=== PATIENT | male | born 1940 | race Caucasian/White ===

== ENCOUNTER 2016-09-21 18:32 | Inpatient (IN) ==
[2016-09-21 19:42] LABS: Basophils # 0.1 10*3/uL (0.0-0.2); Basophils % 0.9 % (0.0-0.8); Eosinophils # 0.5 10*3/uL (0.0-0.87); Eosinophils % 6.5 % (0.00-10.9); Hematocrit 26.4 VOL% (42.0-52.0); Hemoglobin 8.4 GM/DL (14.0-18.0); Immature Granulocytes % 2.6 %; Lymphocytes # 1.4 10*3/uL (1.4-4.0); Lymphocytes % 18.4 % (21.2-54.2); Mean Corpuscular HGB Conc 31.8 GM/DL (32-36); Mean Corpuscular Hemoglobin 30 PG (27-34); Mean Platelet Volume 11.6 FL (9.6-12.0); Monocytes # 0.7 10*3/uL (0.11-0.8); Monocytes % 8.6 % (1.7-12.7); Neutrophils # 4.9 10*3/uL (1.4-7.4); Platelet Count 189 T/CUMM (130-400); Red Blood Count 2.81 MC/CUMM (3.8-5.5); Red Cell Distribution Width 14.2 % (9.3-17.3); White Blood Count 7.8 T/CUMM (4-12)
[2016-09-21 19:53] LABS: PT Patient Result 138.1 SECS; Partial Thromboplastin Time 80.9 SECS (0-40)
[2016-09-21 19:55] LABS: INR 11.2
[2016-09-21 20:14] LABS: Calcium 8.1 MG/DL (8.5-10.1); Osmolality,Calculated 294.4 MOS/KG (273-304)
[2016-09-21] MEDS ORDERED: PHYTONADIONE 5 MG TABLET PO ONE (20:42)
[2016-09-21] MEDS ORDERED: PHYTONADIONE 10 MG/1 ML AMP SUBCUT STA (20:58)
--- NOTE | 2016-09-21 21:11 | Emergency Department Note ---
I, Andressa Ag, am scribing for, and in the presence of, Nubia Horne DO 20:06. I, Nubia Horne DO, personally performed the services described in this documentation, ascribed by Andressa Ag in my presence, and it is both accurate and complete . Arrival - Arrival Chief Complaint: Non-Specific Stated Complaint: COMING FROM [place] [facility]/BLOOD IS THIN ED Nursing Triage Note: pt to triage via wc with c/o having bleeding from gums. pt states he was seen at [place] [facility] today and then they were called back today around 1730 and was told to come to ER to get checked out. they did draw blood work today for labs but did not tell the pt what his levels were, just to go to ER. Mode of Arrival: Wheelchair Limitations: No Limitations Source: Patient, Guardian Time Seen by Provider: 09/21/16 19:36 - History of Present Illness HPI Narrative: Pt is a 76 y/o white male arriving to ED with c/o bleeding from his gums that onset today. Pt reports that he had dental work done today and began bleeding after his visit there. He states that he has not been able to control the bleeding since then. Pt's patient care coordinator states that she was worried before he went to get his dental work done so she called pt's dentist to inform them that he is currently taking Coumadin and they informed her that everything should be normal. Pt has been taking Coumadin 5mg for 3 weeks now. He was also seen at the [place] clinic today to get blood work done. The patient care coordinator rpeorts that they called her from the [place] and told her that pt had an elevated H&H and advised her to bring pt to ED. Pt also c/o a cough but denies any vomiting. He reports no other complaints to ED. Onset (ago): hour(s) Consistency: constant Severity: mild Allergies/Adverse Reactions: Allergies Allergy/AdvReac Type Severity Reaction Status Date / Time levofloxacin [From Levaquin] Allergy Mild RASH Verified 09/21/16 18:50 Home Medications: Home Medications Medication Instructions Recorded Confirmed Type Gabapentin Cap/Tab [Neurontin 300 mg PO TID 02/18/15 09/21/16 History Cap/Tab] Levothyroxine Tab [Synthroid Tab] 100 mcg PO DAILY 02/18/15 09/21/16 History Sucralfate Tab [Carafate Tab] 1 gm PO TID W/MEALS tablet 03/26/15 09/21/16 Rx Omeprazole [Prilosec] 20 mg PO DAILY #30 capsule 11/10/15 09/21/16 Rx Atorvastatin [Lipitor] 10 mg PO BEDTIME 11/12/15 09/21/16 History Escitalopram [Lexapro] 20 mg PO DAILY 11/12/15 09/21/16 History Ferrous Sulfate 325 mg PO BID 11/12/15 09/21/16 History Furosemide Tab [Lasix Tab] 20 mg PO DAILY 11/12/15 09/21/16 History Magnesium Chloride [Slow Mag] 64 mg PO BID 11/12/15 09/21/16 History Tamsulosin [Flomax] 0.4 mg PO DAILY 11/12/15 09/21/16 History Aspirin EC Tab 81 mg PO DAILY tablet 03/26/16 09/21/16 Rx amLODIPine [Norvasc] 5 mg PO DAILY tablet 03/26/16 09/21/16 Rx Insulin Aspart Prot/Insuln Asp 30 unit SUBCUT DAILY 09/21/16 09/21/16 History [NovoLOG Mix 70-30 FlexPen] Warfarin [Coumadin] 5 mg PO DAILY 09/21/16 09/21/16 History hydrALAZINE TAB [Apresoline Tab] 25 mg PO DAILY 09/21/16 09/21/16 History traMADol TAB [Ultram] 50 mg PO DAILY PRN 09/21/16 09/21/16 History Review of System - Review of System 12 point system: reviewed and no additional remarkable complaints except as stated - Review of System Constitutional: Absent: chills, diaphoresis, fever Head/Ears/Nose/Throat: Present: other (gums bleeding). Absent: earache, nasal drainage, sore throat Respiratory: Present: cough Gastrointestinal: Absent: abdominal pain, nausea, vomiting, diarrhea Medical,Surgical,& Family Hx - Medical History Cardio: History of: Cardiac Dysrhythmia (A. 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) Psychological: History of: Anxiety Disorders, Depression Neurology: History of: Cerebrovascular Accident (2015), Neurological Problems No history of: Seizures HEENT: History of: Ear Problem (Hearing Aides), Eye Problem (Glasses/Cataracts) , Dental Problems (ALL CAPS), HEENT Problems (Hard of hearing) No history of: Glaucoma, Oral Cancer Endocrine: History of: Diabetes Mellitus (IDDM), Diabetes Mellitus (NIDDM), Dyslipidemia, Thyroid Disorder (HYPOTHYROID) Respiratory: History of: Bronchitis, COPD No history of: Pneumonia (Current on Pneum Vac), Respiratory Problems (Flu Vac Current 8314-1252 Season) Genitourinary: History of: Prostate Problems (BPH) Gastrointestinal: History of: GERD No history of: Polyps Musculoskeletal: History of: Amputation (Right Great Toe), Back/Neck Problems ( Neck pain), Musculoskeletal Problems (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 Whitmore;11/04/15 Sched for Rt Eye (cataract)) Patient denies: Thyroid Surgery, Tonsilectomy & Adenoidectomy Abdominal Surgeries: Surgical HX of: Colonoscopy Reproductive Surgeries: Patient denies;: Breast Surgery, Cystoscopy, Genitourinary Surgery, Prostate Surgery, Vasectomy Orthopedic Surgeries: Surgical HX of;: Orthopedic Surgery (Right arm surgery; Left shoulder surgery) Patient denies;: Implanted Devices, Total Hip Replacement, Total Knee Replacement - Family History Family History: Reports;: Family Heart Disease (Mother), Family Hypertension ( Mother & Father), Family Stroke (Mother) Denies;: Family Diabetes - Social History Smoking Status: Former smoker Frequency of Alcohol Use: None Type of Drug Use: None Exam Vital Signs: Vital Signs Temperature 97.4 F L 09/21/16 18:46 Pulse Rate 60 09/21/16 18:46 Respiratory Rate 09/21/16 18:46 Blood Pressure 138/73 09/21/16 18:46 O2 Sat by Pulse Oximetry 96 09/21/16 18:46 - General General appearance: alert, in no apparent distress - Head Head exam: Present: atraumatic, normocephalic, normal inspection - Eye Eye exam: Present: normal appearance, PERRL, EOMI - ENT ENT exam: Present: normal exam, normal oropharynx, mucous membranes moist, TM's normal bilaterally, normal external ear exam, other (no source of bleeding but thin blood layer present on teeth) - Neck Neck exam: Present: normal inspection, full ROM, trachea midline. Absent: tenderness - Chest Chest inspection: Present: normal inspection, symmetric chest wall rise, other ( visible pacemaker placed). Absent: tenderness - Respiratory Respiratory exam: Present: other (distant lung sounds) - Cardiovascular Cardiovascular exam: Present: regular rate, normal rhythm, normal heart sounds - Abdominal Exam Abdominal exam: Present: soft, normal bowel sounds. Absent: distention, tenderness, guarding, rebound - Extremities Exam Extremities exam: Present: normal inspection, full ROM, normal capillary refill , other (bilat pitting edema to LE). Absent: tenderness - Back Exam Back exam: Present: normal inspection, full ROM. Absent: tenderness - Neurological Exam Neurological exam: Present: alert, oriented X3, CN II-XII intact, normal gait, reflexes normal - Psychiatric Psychiatric exam: Present: normal affect, normal mood - Skin Skin exam: Present: warm, dry, intact, normal color Course Course Narrative: pt is having large amount of gum bleeding on coumadin. INR is 11 and hg 8.4. Will give vit K. Will admit patient for further workup. Pending rectal occult blood results (given normally have melena for iron supplementation). Results - Labs CBC & BMP: 09/21/16 19:40 09/21/16 19:40 Disposition Clinical Impression: Supratherapeutic INR, Bleeding Case discussed with: patient Disposition: Still a Patient Condition: Stable
[2016-09-21] MEDS ORDERED: PHYTONADIONE 10 MG/1 ML AMP ONE (21:23)
[2016-09-21] MEDS ORDERED: traMADol 50 MG TABLET PO PRN (21:24)
[2016-09-21] MEDS ORDERED: ACETAMINOPHEN 325 MG TABLET PO PRN (21:25)
[2016-09-21] MEDS ORDERED: ONDANSETRON 4 MG/2 ML VIAL IV PRN (21:25)
[2016-09-21] MEDS ORDERED: GLUCAGON 1 MG VIAL IM PRN (21:25)
[2016-09-21] MEDS ORDERED: DEXTROSE 50% 25 GM/50 ML VIAL IV PRN (21:25)
--- NOTE | 2016-09-21 21:29 | Hospitalist History & Physical ---
Assessment and Plan (1) Surgical wound hemorrhage after dental procedure Status: Acute Current Visit: Yes (2) Acute blood loss anemia Status: Acute Current Visit: Yes (3) Supratherapeutic INR Status: Acute Current Visit: Yes (4) Paroxysmal a-fib Status: Acute Current Visit: Yes (5) Chronic systolic CHF (congestive heart failure) Status: Acute Current Visit: Yes (6) History of pacemaker Status: Acute Current Visit: Yes (7) Chronic kidney disease, stage 3 Status: Acute Current Visit: Yes (8) Essential hypertension Status: Acute Assessment and plan: Plan: Vitamin K given in the emergency room Watch for evidence of persistent bleeding, follow H&H Hold aspirin, Coumadin, repeat INR in a.m. We will transfuse FFP due to persistent oozing and drop in hematocrit Current Visit: Yes History of Present Illness Chief complaint: Intractable mouth bleeding after dental procedure, supratherapeutic INR History of present illness: Mr. Storm is a 76 year old male with paroxysmal Afib, pacemaker, chronic anticoagulation, chronic systolic CHF, IDDM, CKD-III. He was told to come to the emergency room after he had a dental procedure this AM with subsequent bleeding from the mouth that has been intractable. INR was noted to be 11.2 in the emergency room. he was switched from Eliquis to Coumadin some time ago, unclear why. His care is largely at the [place]. On his way out of the dental office he had blood coming out of his mouth and since this afternoon he has been unable to stop it. He also reports bruising more easily over the last day or 2. He denies hematuria or hematochezia. He denies chest pain, shortness of breath, nausea vomiting or diarrhea. Home Medications Medication Instructions Recorded Confirmed Type Gabapentin Cap/Tab [Neurontin 300 mg PO TID 02/18/15 09/21/16 History Cap/Tab] Levothyroxine Tab [Synthroid Tab] 100 mcg PO DAILY 02/18/15 09/21/16 History Sucralfate Tab [Carafate Tab] 1 gm PO TID W/MEALS tablet 03/26/15 09/21/16 Rx Omeprazole [Prilosec] 20 mg PO DAILY #30 capsule 11/10/15 09/21/16 Rx Atorvastatin [Lipitor] 10 mg PO BEDTIME 11/12/15 09/21/16 History Escitalopram [Lexapro] 20 mg PO DAILY 11/12/15 09/21/16 History Ferrous Sulfate 325 mg PO BID 11/12/15 09/21/16 History Furosemide Tab [Lasix Tab] 20 mg PO DAILY 11/12/15 09/21/16 History Magnesium Chloride [Slow Mag] 64 mg PO BID 11/12/15 09/21/16 History Tamsulosin [Flomax] 0.4 mg PO DAILY 11/12/15 09/21/16 History Aspirin EC Tab 81 mg PO DAILY tablet 03/26/16 09/21/16 Rx amLODIPine [Norvasc] 5 mg PO DAILY tablet 03/26/16 09/21/16 Rx Insulin Aspart Prot/Insuln Asp 30 unit SUBCUT DAILY 09/21/16 09/21/16 History [NovoLOG Mix 70-30 FlexPen] Warfarin [Coumadin] 5 mg PO DAILY 09/21/16 09/21/16 History hydrALAZINE TAB [Apresoline Tab] 25 mg PO DAILY 09/21/16 09/21/16 History traMADol TAB [Ultram] 50 mg PO DAILY PRN 09/21/16 09/21/16 History Allergies Allergy/AdvReac Type Severity Reaction Status Date / Time levofloxacin [From Levaquin] Allergy Mild RASH Verified 09/21/16 18:50 Medical,Surgical,& Family Hx - Medical History Cardio: History of: Cardiac Dysrhythmia (A. 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) Psychological: History of: Anxiety Disorders, Depression Neurology: History of: Cerebrovascular Accident (2015), Neurological Problems No history of: Seizures HEENT: History of: Ear Problem (Hearing Aides), Eye Problem (Glasses/Cataracts) , Dental Problems (ALL CAPS), HEENT Problems (Hard of hearing) No history of: Glaucoma, Oral Cancer Endocrine: History of: Diabetes Mellitus (IDDM), Diabetes Mellitus (NIDDM), Dyslipidemia, Thyroid Disorder (HYPOTHYROID) Respiratory: History of: Bronchitis, COPD No history of: Pneumonia (Current on Pneum Vac), Respiratory Problems (Flu Vac Current 4728-8606 Season) Genitourinary: History of: Prostate Problems (BPH) Gastrointestinal: History of: GERD No history of: Polyps Musculoskeletal: History of: Amputation (Right Great Toe), Back/Neck Problems ( Neck pain), Musculoskeletal Problems (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 Whitmore;11/04/15 Sched for Rt Eye (cataract)) Patient denies: Thyroid Surgery, Tonsilectomy & Adenoidectomy Abdominal Surgeries: Surgical HX of: Colonoscopy Reproductive Surgeries: Patient denies;: Breast Surgery, Cystoscopy, Genitourinary Surgery, Prostate Surgery, Vasectomy Orthopedic Surgeries: Surgical HX of;: Orthopedic Surgery (Right arm surgery; Left shoulder surgery) Patient denies;: Implanted Devices, Total Hip Replacement, Total Knee Replacement - Family History Family History: Reports;: Family Heart Disease (Mother), Family Hypertension ( Mother & Father), Family Stroke (Mother) Denies;: Family Diabetes - Social History Smoking Status: Former smoker Have you smoked in the last 12 months: No Frequency of Alcohol Use: None Type of Drug Use: None Marital Status: Unknown 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 Functional capacity: uses cane/walker Review of systems: A 12 point review of systems is negative except as specified in the HPI Exam - Constitutional Vitals: Period Temp Pulse Resp BP Sys/Hackett Pulse Ox Last 24 Hr 97.4 F 60 17 138/73 96 Exam: EXAM: CONSTITUTIONAL: non toxic, NAD HEENT: NC, AT, OP with evidence of bright red blood in the oral cavity, mild oozing from sites of dental work, DOC, EOMI CV: RRR no m/g/r RESP: clear B/L, no w/r/r GI: abd soft, NT, ND, +bowel sounds INTEGUMENTARY: no lesions or rash EXTREMITIES: 2+ pitting edema bilateral lower extremities NEURO: no focal deficits PSYCH: unremarkable, A/O x3 Results - Labs CBC & BMP: 09/21/16 19:40 09/21/16 19:40 Lab Results: I have reviewed the past 24 hour labs Quality Measures - VTE Contraindication to Pharmacological VTE Prophylaxis: Active Bleeding
[2016-09-22] MEDS ORDERED: SODIUM CHLORIDE 0.9% 250 ML IV PRN (00:21)
[2016-09-22 00:50] LABS: Basophils # 0.1 10*3/uL (0.0-0.2); Basophils % 0.9 % (0.0-0.8); Eosinophils # 0.5 10*3/uL (0.0-0.87); Eosinophils % 6.9 % (0.00-10.9); Hematocrit 25.9 VOL% (42.0-52.0); Hemoglobin 8.5 GM/DL (14.0-18.0); Immature Granulocytes % 2.8 %; Immature Granulocytes Absolute 0.22 #; Lymphocytes # 1.6 10*3/uL (1.4-4.0); Lymphocytes % 20.7 % (21.2-54.2); Mean Corpuscular HGB Conc 32.8 GM/DL (32-36); Mean Corpuscular Hemoglobin 30 PG (27-34); Mean Corpuscular Volume 91.5 FL (87-102); Mean Platelet Volume 11.3 FL (9.6-12.0); Monocytes # 0.7 10*3/uL (0.11-0.8); Monocytes % 9.1 % (1.7-12.7); Neutrophils # 4.6 10*3/uL (1.4-7.4); Neutrophils % 59.6 % (38.7-73.9); Platelet Count 187 T/CUMM (130-400); Red Blood Count 2.83 MC/CUMM (3.8-5.5); Red Cell Distribution Width 14.3 % (9.3-17.3); White Blood Count 7.8 T/CUMM (4-12)
[2016-09-22 01:12] LABS: PT Patient Result 134.2 SECS
[2016-09-22 01:14] LABS: INR 10.9
[2016-09-22 01:22] LABS: Osmolality,Calculated 294.5 MOS/KG (273-304); Potassium 4.9 MMOL/L (3.5-5.1)
[2016-09-22 08:28] LABS: INR 3.8
[2016-09-22 08:54] LABS: PT Patient Result 43.8 SECS
[2016-09-22] MEDS: INSULIN REGULAR 100 UNIT/ML SUBCUT SCH ×4 (09:25→21:22)
[2016-09-22] MEDS: INSULIN ASPART PROTAMINE/ASPART 70/30 100 UNIT/ML SUBCUT SCH (09:26)
[2016-09-22] MEDS: MAGNESIUM CHLORIDE 64 MG TABLET PO SCH ×2 (09:26→21:18)
[2016-09-22] MEDS: LEVOTHYROXINE 100 MCG TABLET PO SCH (09:27)
[2016-09-22] MEDS: SUCRALFATE 1 GM TABLET PO SCH ×3 (09:27→17:18)
[2016-09-22] MEDS: GABAPENTIN 300 MG CAPSULE PO SCH ×3 (09:27→21:18)
[2016-09-22] MEDS: amLODIPine 5 MG TABLET PO SCH (09:27)
[2016-09-22] MEDS: FERROUS SULFATE 325 MG TABLET PO SCH ×2 (09:27→21:20)
[2016-09-22] MEDS: ESCITALOPRAM 10 MG TABLET PO SCH (09:27)
[2016-09-22] MEDS: PANTOPRAZOLE 40 MG TABLET PO SCH (09:31)
[2016-09-22] MEDS: TAMSULOSIN 0.4 MG CAPSULE PO SCH (09:31)
--- NOTE | 2016-09-22 15:52 | Hospitalist Progress Note ---
Assessment and Plan (1) Debility Status: Acute Current Visit: No (2) Bleeding Status: Acute Current Visit: Yes (3) Acute blood loss anemia Status: Acute Assessment and plan: Monitor H&H in a.m. and transfuse as needed. Current Visit: Yes (4) Supratherapeutic INR Status: Acute Assessment and plan: Coumadin reversal started yesterday. INR down to 3.8 Current Visit: Yes (5) Paroxysmal a-fib Status: Acute Current Visit: Yes (6) Surgical wound hemorrhage after dental procedure Status: Acute Current Visit: Yes (7) Chronic systolic CHF (congestive heart failure) Status: Acute Current Visit: Yes (8) Chronic kidney disease, stage 3 Status: Acute Current Visit: Yes (9) Essential hypertension Status: Acute Current Visit: Yes Hospitalist: Subjective Interval history: Patient seen and examined. No acute events overnight. Case discussed with nursing staff. Labs reviewed. Continues to have oozing from the mouth. INR improved after receiving FFP, vitamin K p.o. and subcu Exam - Constitutional Vitals: Period Temp Pulse Resp BP Sys/Hackett Pulse Ox Last 24 Hr 96.8 F-99.1 F 56-90 16-20 120-216/53-109 96-98 Exam: Constitutional System: Mild distress. No tremulousness. Head: Normocephalic, atraumatic. Ears, Nose and Throat System: No pain or tenderness. No epistaxis or discharge. Mouth with oozing blood from his partial bridge Eyes System: Pupils equal, round, and reactive. Extraocular muscles intact. Neck: Supple, without adenopathy, No jugular venous distention. Respiratory System: Chest clear to auscultation. Cardiovascular System: Heart with regular rate and rhythm. No murmur. GI System: Abdomen soft, nontender. Normo active bowel sounds present. Musculoskeletal System: limbs with bilateral lower extremity pedal edema. Full distal pulses. Neurological System: No discernable sensory deficit. No aphasia Psychiatric System: Conversation is rational Results - Labs CBC & BMP: 09/22/16 00:40 09/22/16 00:40 Lab Results: I have reviewed the past 24 hour labs Quality Measures - VTE Contraindication to Pharmacological VTE Prophylaxis: Active Bleeding
[2016-09-22 16:10] LABS: Basophils # 0.1 10*3/uL (0.0-0.2); Basophils % 0.9 % (0.0-0.8); Eosinophils # 0.7 10*3/uL (0.0-0.87); Eosinophils % 8.8 % (0.00-10.9); Hematocrit 25.5 VOL% (42.0-52.0); Hemoglobin 8.5 GM/DL (14.0-18.0); Immature Granulocytes % 2.5 %; Lymphocytes # 1.4 10*3/uL (1.4-4.0); Lymphocytes % 17.4 % (21.2-54.2); Mean Corpuscular HGB Conc 33.3 GM/DL (32-36); Mean Corpuscular Hemoglobin 30 PG (27-34); Mean Corpuscular Volume 90.4 FL (87-102); Mean Platelet Volume 10.9 FL (9.6-12.0); Monocytes # 0.8 10*3/uL (0.11-0.8); Monocytes % 10.3 % (1.7-12.7); Neutrophils # 4.8 10*3/uL (1.4-7.4); Neutrophils % 60.1 % (38.7-73.9); Platelet Count 172 T/CUMM (130-400); Red Blood Count 2.82 MC/CUMM (3.8-5.5); White Blood Count 8.1 T/CUMM (4-12)
[2016-09-22] MEDS ORDERED: ATORVASTATIN 10 MG TABLET PO SCH (21:00)
[2016-09-23 04:45] LABS: Basophils # 0.1 10*3/uL (0.0-0.2); Basophils % 1.2 % (0.0-0.8); Eosinophils # 0.7 10*3/uL (0.0-0.87); Eosinophils % 7.9 % (0.00-10.9); Hematocrit 27.4 VOL% (42.0-52.0); Hemoglobin 8.9 GM/DL (14.0-18.0); Immature Granulocytes % 2.1 %; Immature Granulocytes Absolute 0.18 #; Lymphocytes # 1.8 10*3/uL (1.4-4.0); Lymphocytes % 20.7 % (21.2-54.2); Mean Corpuscular HGB Conc 32.5 GM/DL (32-36); Mean Corpuscular Hemoglobin 30 PG (27-34); Mean Platelet Volume 11.4 FL (9.6-12.0); Monocytes # 0.8 10*3/uL (0.11-0.8); Monocytes % 9.3 % (1.7-12.7); Neutrophils % 58.8 % (38.7-73.9); Platelet Count 193 T/CUMM (130-400); Red Blood Count 3.01 MC/CUMM (3.8-5.5); Red Cell Distribution Width 14.1 % (9.3-17.3); White Blood Count 8.6 T/CUMM (4-12)
[2016-09-23 05:15] LABS: INR 2.1
[2016-09-23 05:22] LABS: PT Patient Result 23.6 SECS
--- NOTE | 2016-09-23 07:54 | Physician Query Form ---
CLICK EDIT DOCUMENT TO SELECT QUERY ANSWER --> OK --> SIGN April Garcia RN, CCDS Certified Clinical Basket Mender W) [phone] (f) [phone] [email or web address]: Make your selection(s) from the choices in EACH section by typing an "x" and enter comments in the comment section. Please use your independent medical judgment in providing your response. This request does not imply that any particular answer is desired or expected. CLINICAL INDICATORS: (Providers should not edit this section) The medical record indicates that the patient was admitted post dental procedure with bleeding from the dental work recently preformed, INR 11.2# and the patient was given Plt's. Based on the above, could you clarify the appropriate diagnosis, if significant , that supports the above abnormalities and additional evaluation, monitoring, and/or treatment rendered: ( X) Bleeding from the mouth is a post op complication (X ) Bleeding from the mouth is a complication of Coumadin (hemorrhagic disorder due to extrinsic circulation anticoagulants) ( ) Bleeding from the mouth is ( ) Other, please specify: ( ) Clinically unable to determine COMMENTS: PLEASE ALSO DOCUMENT RESPONSE IN PROGRESS NOTES AND/OR DISCHARGE SUMMARY Use of terms such as suspected, likely, or probable (associated with a specific diagnosis that is being evaluated, monitored, or treated as if it exists) are acceptable and can be restated in the discharge summary if not ruled out. MTDD
[2016-09-23] MEDS: INSULIN ASPART PROTAMINE/ASPART 70/30 100 UNIT/ML SUBCUT SCH (08:41)
[2016-09-23] MEDS: MAGNESIUM CHLORIDE 64 MG TABLET PO SCH (08:42)
[2016-09-23] MEDS: FERROUS SULFATE 325 MG TABLET PO SCH (08:43)
[2016-09-23] MEDS: GABAPENTIN 300 MG CAPSULE PO SCH (08:43)
[2016-09-23] MEDS: PANTOPRAZOLE 40 MG TABLET PO SCH (08:43)
[2016-09-23] MEDS: ESCITALOPRAM 10 MG TABLET PO SCH (08:43)
[2016-09-23] MEDS: LEVOTHYROXINE 100 MCG TABLET PO SCH (08:43)
[2016-09-23] MEDS: TAMSULOSIN 0.4 MG CAPSULE PO SCH (08:43)
[2016-09-23] MEDS: SUCRALFATE 1 GM TABLET PO SCH ×2 (08:43→12:23)
[2016-09-23] MEDS: amLODIPine 5 MG TABLET PO SCH (08:43)
[2016-09-23] MEDS: INSULIN REGULAR 100 UNIT/ML SUBCUT SCH ×2 (08:44→12:15)
--- NOTE | 2016-09-23 11:42 | Discharge Summary ---
Hospital Course - Hospital Course Hospital Course: Mr. Storm is a 76-year-old white male that was admitted with an elevated INR and acute blood loss anemia secondary to bleeding from his mouth after a dental procedure. The patient's INR was greater than 11. He received reversal with vitamin K and fresh frozen plasma. His hemoglobin stabilized. His INR today is 2. He has no further bleeding from his gums. He has reached maximal benefit from this inpatient hospitalization. He does not want to go back on Coumadin and would prefer to start Eliquis. This will be prescribed and a new prescription given. He will follow-up with his [facility] letter carrier and primary care physician. He receives most of his care at the [place]. His home medications were reviewed and reconciled. Coumadin was stopped and Eliquis was started. - Time spent with patient Time with patient DS: Greater than 30 minutes (Total discharge time for this patient, including [id number] time, clinical documentation, medication reconciliation, and discharge planning was 34 minutes.) Diagnosis - Discharge Diagnosis (1) Debility Status: Chronic (2) Bleeding Status: Resolved (3) Acute blood loss anemia Status: Acute (4) Supratherapeutic INR Status: Resolved (5) Paroxysmal a-fib Status: Chronic (6) Surgical wound hemorrhage after dental procedure Status: Resolved (7) Chronic systolic CHF (congestive heart failure) Status: Chronic (8) Chronic kidney disease, stage 3 Status: Chronic (9) Essential hypertension Status: Chronic Discharge Plan - Discharge Data Disposition: Disch To Home/Self Care Condition at Discharge: Stable Discharge Diet: advance to your usual diet Activity: resume usual activities as tolerated Hygiene: no restrictions Weight Bearing at Discharge: full weight bearing Driving: no restrictions Contact your physician if you experience:: Bleeding - Discharge Medications New Apixaban [Eliquis] 5 mg PO BID #60 tablet Continue Gabapentin Cap/Tab [Neurontin Cap/Tab] 300 mg PO TID Levothyroxine Tab [Synthroid Tab] 100 mcg PO DAILY Sucralfate Tab [Carafate Tab] 1 gm PO TID W/MEALS tablet Omeprazole [Prilosec] 20 mg PO DAILY #30 capsule Atorvastatin [Lipitor] 10 mg PO BEDTIME Escitalopram [Lexapro] 20 mg PO DAILY Ferrous Sulfate 325 mg PO BID Furosemide Tab [Lasix Tab] 20 mg PO DAILY Magnesium Chloride [Slow Mag] 64 mg PO BID Tamsulosin [Flomax] 0.4 mg PO DAILY Insulin Aspart Prot/Insuln Asp [NovoLOG Mix 70-30 FlexPen] 30 unit SUBCUT DAILY Aspirin EC Tab 81 mg PO DAILY tablet amLODIPine [Norvasc] 5 mg PO DAILY tablet traMADol TAB [Ultram] 50 mg PO DAILY PRN PRN Reason: Pain hydrALAZINE TAB [Apresoline Tab] 25 mg PO DAILY Discontinued Warfarin [Coumadin] 5 mg PO DAILY - Follow Up or Referral - Forms/Instructions Instructions: Apixaban (By mouth) Exam - Constitutional Vitals: Period Temp Pulse Resp BP Sys/Hackett Pulse Ox Last 24 Hr 98.3 F-98.5 F 16-67 16-22 110-204/53-86 91-97 Discharge Results Labs on day of discharge: Labs from last 24 hours 09/23/16 09/23/16 09/23/16 08:03 04:03 04:03 WBC 8.6 RBC 3.01 L Hgb 8.9 L Hct 27.4 L MCV 91.0 MCH 30 MCHC 32.5 RDW 14.1 Plt Count 193 MPV 11.4 Neut % (Auto) 58.8 Lymph % (Auto) 20.7 L [place] % (Auto) 9.3 Eos % (Auto) 7.9 Baso % (Auto) 1.2 H Neut # (Auto) 5.0 Lymph # (Auto) 1.8 [place] # (Auto) 0.8 Eos # (Auto) 0.7 Baso # (Auto) 0.1 Immature Gran % 2.1 Nucleated RBC % 0.0 Immature Gran # 0.18 Nucleated RBCs # 0.00 INR 2.1 PT Patient/Control Mix 23.6 D POC Glucose 236 H 09/22/16 09/22/16 09/22/16 19:42 16:05 16:03 WBC 8.1 RBC 2.82 L Hgb 8.5 L Hct 25.5 L MCV 90.4 MCH 30 MCHC 33.3 RDW 14.0 Plt Count 172 MPV 10.9 Neut % (Auto) 60.1 Lymph % (Auto) 17.4 L [place] % (Auto) 10.3 Eos % (Auto) 8.8 Baso % (Auto) 0.9 H Neut # (Auto) 4.8 Lymph # (Auto) 1.4 [place] # (Auto) 0.8 Eos # (Auto) 0.7 Baso # (Auto) 0.1 Immature Gran % 2.5 Nucleated RBC % 0.0 Immature Gran # 0.20 Nucleated RBCs # 0.00 INR PT Patient/Control Mix POC Glucose 124 H 177 H 09/22/16 11:28 WBC RBC Hgb Hct MCV MCH MCHC RDW Plt Count MPV Neut % (Auto) Lymph % (Auto) [place] % (Auto) Eos % (Auto) Baso % (Auto) Neut # (Auto) Lymph # (Auto) [place] # (Auto) Eos # (Auto) Baso # (Auto) Immature Gran % Nucleated RBC % Immature Gran # Nucleated RBCs # INR PT Patient/Control Mix POC Glucose 316 H DS: Provider Date of admission: 09/22/16 15:48 Primary care physician: . Aide PCP Attending physician on admission: Brian Montes De Oca DO Discharging clinician: Adelaida Leone MD Expected date of discharge: 09/23/16
[2016-09-23 12:29] VITALS: BP 148/79
== END 2016-09-23 14:30 | disposition home or self-care (01) | DRG 813 ==
LOC: N.ED 18:32 → N.EDINP 18:32 → SUATTDRO 21:25 → N.TELEN 22:11
PROVIDERS: ADMIT Internal Medicine; ATTEND Family Medicine

== ENCOUNTER 2016-11-01 10:06 | Observation (INO) ==
[2016-11-01] MEDS ORDERED: SODIUM CHLORIDE 0.9% 500 ML IV STA (10:31)
[2016-11-01] MEDS ORDERED: DIPH/TET/ACEL PERT BOOSTER VACCINE 0.5 ML VIAL IM ONE ×2 (10:31→11:02)
[2016-11-01] MEDS ORDERED: ONDANSETRON 4 MG/2 ML VIAL IV STA (10:31)
--- NOTE | 2016-11-01 10:37 | Emergency Department Note ---
Taqueria Haddad Brooke, am scribing for, and in the presence of, Ti Reynolds MD 10 :35. Gail Haddad Charles R, MD, personally performed the services described in this documentation, ascribed by Bel Meng in my presence, and it is both accurate and complete . Arrival - Arrival Chief Complaint: Fall ED Nursing Triage Note: PT TO ER 14 VIA EMS COMING FROM HOME WITH C/O HAVING A FALL THIS AM AROUND 0830. PT C/O HAVING RIGHT RIB PAIN, DENIES ANY LOC WITH FALL , PT IS ON BACKBOARD AND C-COLLAR. PT WAS GIVEN 10MG MORPHINE AND 4MG ZOFRAN DANCE MASTER. Mode of Arrival: Stretcher Limitations: No Limitations Source: Patient, EMS, RN Notes Reviewed, Bystander (Sitter) Time Seen by Provider: 11/01/16 10:23 - History of Present Illness HPI Narrative: Patient is a 76 year old male who was brought into the ED by EMS following a fall that happened sometime this morning. Sitter says she went to Patient's home and found him in the floor. She says Patient was complaining of left side pain. Sitter says Patient's gait is not steady and he is supposed to use a walker but did not have it at the time of the fall. Sitter says she does not think he hit his head and states "it was not close to anything." Patient's right side has some erythema to it and there is a skin tear to the right forearm. Patient was given 10 of Morphine, while with EMS, and is says he is not currently in any pain now and denies hip pain, back pain, and abdominal pain upon exam. Patient has PMHx of Afib, CHF, CAD, HTN, [place], pacemaker, anxiety , depression, CVA, hard of hearing, diabetes, dyslipidemia, hypothyroidism, bronchitis, COPD, BPH, GERD, and right great toe amputation. 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 Chatterjee. He is currently taking ASA and Eliquis. Allergies/Adverse Reactions: Allergies Allergy/AdvReac Type Severity Reaction Status Date / Time levofloxacin [From Levaquin] Allergy Mild RASH Verified 11/01/16 10:21 Home Medications: Home Medications Medication Instructions Recorded Confirmed Type Levothyroxine Tab [Synthroid Tab] 100 mcg PO DAILY 02/18/15 10/12/16 History Sucralfate Tab [Carafate Tab] 1 gm PO TID W/MEALS tablet 03/26/15 10/12/16 Rx Atorvastatin [Lipitor] 10 mg PO BEDTIME 11/12/15 10/12/16 History Escitalopram [Lexapro] 20 mg PO DAILY 11/12/15 10/12/16 History Ferrous Sulfate 325 mg PO BID 11/12/15 10/12/16 History Furosemide Tab [Lasix Tab] 20 mg PO DAILY 11/12/15 10/12/16 History Magnesium Chloride [Slow Mag] 64 mg PO BID 11/12/15 10/12/16 History Tamsulosin [Flomax] 0.4 mg PO DAILY 11/12/15 10/12/16 History Aspirin EC Tab 81 mg PO DAILY tablet 03/26/16 10/12/16 Rx Insulin Aspart Prot/Insuln Asp 30 unit SUBCUT BID 09/21/16 10/12/16 History [NovoLOG Mix 70-30 FlexPen] hydrALAZINE TAB [Apresoline Tab] 25 mg PO TID 09/21/16 10/12/16 History Apixaban [Eliquis] 5 mg PO BID #60 tablet 09/23/16 10/12/16 Rx Amiodarone Tab [Cordarone Tab] 200 mg PO DAILY 10/12/16 10/12/16 History Cyanocobalamin Tab [Vitamin B12 500 mcg PO DAILY 10/12/16 10/12/16 History Tab] Fexofenadine HCl 180 mg PO DAILY 10/12/16 10/12/16 History Methocarbamol Tab [Robaxin Tab] 500 mg PO BID 10/12/16 10/12/16 History Metoprolol Tartrate Tab [Lopressor 25 mg PO BID 10/12/16 10/12/16 History Tab] Niacin [Slo-Niacin] 500 mg PO DAILY 10/12/16 10/12/16 History Omeprazole [Prilosec] 40 mg PO DAILY 10/12/16 10/12/16 History Potassium Chloride 20 meq PO DAILY 10/12/16 10/12/16 History Saxagliptin HCl [Onglyza] 2.5 mg PO DAILY 10/12/16 10/12/16 History Zolpidem Tartrate [Ambien] 10 mg PO BEDTIME 10/12/16 10/12/16 History Review of System - Review of System 12 point system: reviewed and no additional remarkable complaints except as stated - Review of System Constitutional: Absent: fever Respiratory: Absent: respiratory distress Musculoskeletal: Present: other (right side pain) Skin: Present: other (erythema to right side and skin tear to right forearm.). Absent: rash Medical,Surgical,& Family Hx - Medical History Cardio: History of: Cardiac Dysrhythmia (A. fib (Eliquis)), CHF, CAD, Hypertension, [place] (1992), Pacemaker, Cardiovascular Problems (Product Tester Fiberglass Dr. Chatterjee) Psychological: History of: Anxiety Disorders, Depression Neurology: History of: Cerebrovascular Accident (2015), Neurological Problems No history of: Seizures HEENT: History of: Ear Problem (Hearing Aides), Eye Problem (Glasses/Cataracts) , Dental Problems (ALL CAPS), HEENT Problems (Hard of hearing) No history of: Glaucoma, Oral Cancer Endocrine: History of: Diabetes Mellitus (IDDM), Diabetes Mellitus (NIDDM), Dyslipidemia, Thyroid Disorder (HYPOTHYROID) Respiratory: History of: Bronchitis, COPD No history of: Pneumonia (Current on Pneum Vac), Respiratory Problems (Flu Vac Current 0023-0267 Season) Genitourinary: History of: Prostate Problems (BPH) Gastrointestinal: History of: GERD No history of: Polyps Musculoskeletal: History of: Amputation (Right Great Toe), Back/Neck Problems ( Neck pain), Musculoskeletal Problems (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 Whitmore;11/04/15 Sched for Rt Eye (cataract)) Patient denies: Thyroid Surgery, Tonsilectomy & Adenoidectomy Abdominal Surgeries: Surgical HX of: Colonoscopy Reproductive Surgeries: Patient denies;: Breast Surgery, Cystoscopy, Genitourinary Surgery, Prostate Surgery, Vasectomy Orthopedic Surgeries: Surgical HX of;: Orthopedic Surgery (Right arm surgery; Left shoulder surgery) Patient denies;: Implanted Devices, Total Hip Replacement, Total Knee Replacement - Family History Family History: Reports;: Family Heart Disease (Mother), Family Hypertension ( Mother & Father), Family Stroke (Mother) Denies;: Family Diabetes - Social History Smoking Status: Never smoker Frequency of Alcohol Use: None Type of Drug Use: None Exam Physical Examination: GENERAL: Mild distress alert, c-collar/backboard DANCE MASTER HEAD: no evidence of trauma, no racoon eyes/thomas signs NECK: non-tender, painless ROM, trachea midline, NEXUS Criteria neg EYES: PERRL, EOMI, no JOANNE ENT: nml ext. inspection, airway nml, no dental/oral injury RESP/CVS: Bruising and pain along the right rib cage midaxillary line with superficial abrasions, no ecchymosis, nml heart sounds, nml breath sounds ABDOMEN: non-tender, no distension GENITAL/RECTAL: nml ext inspection NEURO/PSYCH: A/Ox4, CN2-10 intact, sensation nml, motor nml, mood/affect nml Glascow Coma Scale: 15 eyes [id number]-1 [id number]-wsv-1 motor-nml-6 SKIN: intact, warm, dry BACK: no CVA tenderness, no vertebral tenderness EXTREMITIES: Skin tear right arm, pelvis stable, , no pedal edema, nml ROM, nml color/temp Vital Signs: Vital Signs Temperature 98.0 F 11/01/16 10:06 Pulse Rate 84 11/01/16 10:06 Respiratory Rate 18 11/01/16 10:06 Blood Pressure 199/98 11/01/16 10:06 O2 Sat by Pulse Oximetry 100 11/01/16 10:44 Course - Reevaluation(s) Reevaluation #1: The reason for the delay in sending this patient home is because the patient has minor injuries bumps and bruises. But the patient is given 10 mg IV by EMS morphine patient is a little sedated did not fill, we will send him home into the patient is more awake. Time: 14:30 Reevaluation #2: Patient still arousable but difficult to arouse secondary to morphine will admit patient for observation Time: 15:10 - Consultations Consultation #1: Patient be made by hospitalist because patient has a prolonged decreased level consciousness secondary to morphine Time: 15:10 Results - Labs CBC & BMP: 11/01/16 12:07 11/01/16 12:07 Lab Results: I have reviewed the patients labs Labs: Laboratory Tests 11/01/16 11:27 Urine Color Straw Urine Appearance Clear Urine pH 5.0 Ur Specific [place] 1.010 Urine Protein 100 Urine Glucose (UA) >=500 Urine Ketones Negative Urine Blood Small Urine Nitrate Negative Urine Bilirubin Negative Urine Urobilinogen < 2.0 H Urine Leukocytes Negative Urine RBC 15 Urine WBC <1 Urine Mucus Occasional Ur Culture Indicated? Not indicated Laboratory Tests 11/01/16 11/01/16 11/01/16 12:07 12:07 13:06 WBC 12.6 H RBC 3.10 L Hgb 9.1 L Hct 28.5 L MCV 91.9 MCH 29 MCHC 31.9 L RDW 13.9 Plt Count 181 MPV 11.6 Neut % (Auto) 77.9 H Lymph % (Auto) 10.2 L [place] % (Auto) 7.5 Eos % (Auto) 2.8 Baso % (Auto) 0.6 Neut # (Auto) 9.8 H Lymph # (Auto) 1.3 L [place] # (Auto) 0.9 H Eos # (Auto) 0.4 Baso # (Auto) 0.1 Immature Gran % 1.0 Nucleated RBC % 0.0 Immature Gran # 0.12 Nucleated RBCs # 0.00 Immature Plt Fraction 0.0 Sodium 139 Potassium 5.2 H Chloride 109 H Carbon Dioxide 24 Anion Gap 11.2 BUN 23 H Creatinine 1.90 H GFR Calculation 48 BUN/Creatinine Ratio 12.00 Glucose 225 H POC Glucose 256 H Calculated Osmolality 287.5 Calcium 8.2 L Total Bilirubin 0.50 AST 14 ALT 9 L Alkaline Phosphatase 109 Total Creatine Kinase 232 CK-MB (CK-2) 3.3 Troponin I 0.048 H Total Protein 7.8 Albumin 3.1 L Globulin 4.7 H Albumin/Globulin Ratio 0.6 L - Diagnostic Findings Procedure: CT: report reviewed by me (CT head/brain wo con: Generalized atrophy and White matter changes likely attributable to chronic microvascular ischemia. No evidence of acute intracranial injury. Suspected scalp hematomas. Paranasal sinus disease. CT cervical spine: No acute fracture. Prominent degenerative disc disease of the cervical spine with multilevel spinal stenosis.), X-ray: report reviewed by me (XR ribs RT w pa chest: No acute rib fractures seen. XR pelvis AP 1 or 2 views: Progressive osteoarthritis. Fecal impaction.) Disposition Clinical Impression: Fall, Decreased LOC from morphine, Confusion, Unsteady gait, Contusion of rib on right side Case discussed with: patient, patient's family Disposition: Still a Patient Condition: Stable Time of Disposition: 15:11
--- NOTE | 2016-11-01 11:01 | CT Report ---
CT of the head without contrast. Indication: Fall, injury, and pain. Comparison: July 26, 2016. Along both parietal regions, there is increased scalp mid density, suggesting scalp hematomas. The calvarium is intact. As mucosal thickening within the paranasal sinuses. No air-fluid levels. The mastoid air cells are clear. There is generalized prominence of the ventricles and sulci consistent with atrophy of aging. There is no mass effect, midline shift, or area of acute hemorrhage. No cortical infarcts are seen at this time. There are mild areas of low density in the periventricular white matter. Impression: Generalized atrophy and White matter changes likely attributable to chronic microvascular ischemia. No evidence of acute intracranial injury. Suspected scalp hematomas. Paranasal sinus disease. The CT exam was performed using one or more of the following dose reduction techniques: Automated exposure control, adjustment of the mA and/or kV according to patient size, or use of iterative reconstruction technique. PROCEDURE INTERPRETED AT [facility] DEPARTMENT OF RADIOLOGY Final Report Signed by: Dr. Nikki Leung
[2016-11-01] MEDS ORDERED: ONDANSETRON 4 MG/2 ML VIAL ONE (11:02)
--- NOTE | 2016-11-01 11:10 | CT Report ---
History: Neck pain after fall Date: 11/01/2016 Study: CT cervical spine without contrast Comparison exam: No previous cervical spine imaging study Thin spiral CT sections were obtained through the cervical spine without IV contrast. Multiplanar reconstruction images are also evaluated. Total DLP measures 521.9 mGy*cm. This CT exam was performed using one or more the following dose reduction techniques: Automated exposure control, adjustment of the MA and/or KV according to patient size, or use of iterative reconstruction technique. There is no acute fracture, gross subluxation, or prevertebral soft tissue swelling. There is prominent degenerative disc narrowing at C5-C6 and C6-C7. There is moderate anterior spondylosis at C3-C4 through C6-C7. There is some cystic degenerative change superiorly in the right lateral aspect of the C2 vertebral body adjacent to uncovertebral joint. There is prominent joint space narrowing and asymmetric osteophyte formation at the right C1-C2 uncovertebral joint. There is scattered facet hypertrophy. There is mild to moderate neural foraminal narrowing at C2-C3 related to uncovertebral and facet hypertrophy. There is mild narrowing of spinal canal at C3-C4 related to mild posterior bulging disc and osteophyte; there is moderate right and mild left neural foraminal narrowing related to uncovertebral hypertrophy. There is moderate spinal stenosis at C5-C6 related to posterior bulging disc and osteophyte; there is prominent right greater than left bony neural foraminal narrowing related to uncovertebral and facet hypertrophy. There is moderate to prominent spinal stenosis at C6-C7 related to posterior bulging disc and osteophyte; there is prominent right greater than left neural foraminal narrowing related to uncovertebral and facet hypertrophy at this level. Impression: No acute fracture Prominent degenerative disc disease of the cervical spine with multilevel spinal stenosis PROCEDURE INTERPRETED AT [facility] DEPARTMENT OF RADIOLOGY Final Report Signed by: Dr. Dinorah Capps
--- NOTE | 2016-11-01 11:24 | XRay Report ---
Single view of the pelvis. Indication: Pelvic pain. There is gaseous distention of bowel. There is a fecal impaction. There is a left femoral stent. The pubic symphysis and SI joints are of normal width. There are prominent progressive degenerative changes of the hips. The SI joints are of normal width. No evidence of acute fracture. Degenerative changes are noted within the lower lumbar spine. No evidence of hip dislocation. Impression: Progressive osteoarthritis. Fecal impaction. PROCEDURE INTERPRETED AT [facility] DEPARTMENT OF RADIOLOGY Final Report Signed by: Dr. Nikki Leung
--- NOTE | 2016-11-01 11:25 | XRay Report ---
History: Right rib pain after fall Date: 11/01/2016 Study: Right RIBS AP and oblique views Comparison exam: October 12, 2016 chest x-ray No acute fracture seen. There is no focal lytic or blastic lesion. There is no gross pneumothorax or pleural effusion on the right. Pacemaker device is noted on the left. Impression: No acute rib fractures seen PROCEDURE INTERPRETED AT [facility] DEPARTMENT OF RADIOLOGY Final Report Signed by: Dr. Dinorah Capps
[2016-11-01 11:45] LABS: Apearance,Urine CLEAR (Clear); Bilirubin,Urine Negative (Negative); Blood, Urine Small mg/dL (Negative); Glucose,Urine (UA) >=500 mg/dL (Negative); Ketones,Urine Negative (Negative); Mucus,Urine Occasional /LPF (Occasional); Nitrite,Urine Negative (Negative); Protein,Urine 100 MG/DL; RBC,Urine 15 /HPF (0-4); Urine Color Straw (Yellow); Urine Urobilinogen < 2.0 EU/DL (0.2-1.0); WBC,Urine <1 /HPF (0-6)
[2016-11-01] MEDS ORDERED: SODIUM CHLORIDE 0.9% 100 ML IV ONE (11:58)
[2016-11-01] MEDS ORDERED: ceFAZolin 1,000 MG VIAL ONE (11:58)
[2016-11-01 12:30] LABS: Basophils # 0.1 10*3/uL (0.0-0.2); Basophils % 0.6 % (0.0-0.8); Eosinophils # 0.4 10*3/uL (0.0-0.87); Eosinophils % 2.8 % (0.00-10.9); Hematocrit 28.5 VOL% (42.0-52.0); Hemoglobin 9.1 GM/DL (14.0-18.0); Immature Granulocytes Absolute 0.12 #; Lymphocytes # 1.3 10*3/uL (1.4-4.0); Lymphocytes % 10.2 % (21.2-54.2); Mean Corpuscular HGB Conc 31.9 GM/DL (32-36); Mean Corpuscular Hemoglobin 29 PG (27-34); Mean Corpuscular Volume 91.9 FL (87-102); Mean Platelet Volume 11.6 FL (9.6-12.0); Monocytes # 0.9 10*3/uL (0.11-0.8); Monocytes % 7.5 % (1.7-12.7); Neutrophils # 9.8 10*3/uL (1.4-7.4); Neutrophils % 77.9 % (38.7-73.9); Platelet Count 181 T/CUMM (130-400); Red Cell Distribution Width 13.9 % (9.3-17.3); White Blood Count 12.6 T/CUMM (4-12)
--- NOTE | 2016-11-01 12:35 | EKG Report ---
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
[2016-11-01 12:57] LABS: Alanine Aminotransferase 9 U/L (16-61); Albumin 3.1 G/DL (3.4-5.0); Alkaline Phosphatase 109 U/L (45-117); Aspartate Amino Transferase 14 U/L (0-37); Blood Urea Nitrogen 23 MG/DL (7-18); Calcium 8.2 MG/DL (8.5-10.1); Glucose 225 MG/DL (74-106); Osmolality,Calculated 287.5 MOS/KG (273-304); Potassium 5.2 MMOL/L (3.5-5.1); Sodium 139 MMOL/L (136-145); Total Protein 7.8 G/DL (6.4-8.3); Troponin I Only 0.048 NG/ML (0.00-0.045)
[2016-11-01] MEDS ORDERED: GLUCAGON 1 MG VIAL IM PRN (15:29)
[2016-11-01] MEDS ORDERED: DEXTROSE 50% 25 GM/50 ML SYRINGE IV PRN (15:29)
[2016-11-01] MEDS ORDERED: ACETAMINOPHEN 325 MG TABLET PO PRN ×2 (15:29)
[2016-11-01] MEDS ORDERED: DOCUSATE SODIUM 100 MG CAPSULE PO PRN (15:36)
[2016-11-01] MEDS ORDERED: ONDANSETRON 4 MG/2 ML VIAL IV PRN (15:36)
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
[2016-11-01] MEDS ORDERED: LABETALOL 20 MG/4 ML SYRINGE IV PRN (16:51)
[2016-11-01] MEDS: SODIUM CHLORIDE 0.9% 1,000 ML IV SCH (16:54)
[2016-11-01] MEDS: PANTOPRAZOLE 40 MG TABLET PO SCH (17:39)
[2016-11-01] MEDS: INSULIN LISPRO 100 UNIT/ML SUBCUT SCH (17:48)
[2016-11-01] MEDS: CLOTRIMAZOLE 1% CREAM 15 GM TUBE TOP SCH (21:29)
[2016-11-02] MEDS: SODIUM CHLORIDE 0.9% 1,000 ML IV SCH (00:54)
[2016-11-02 05:11] LABS: Basophils # 0.1 10*3/uL (0.0-0.2); Basophils % 0.5 % (0.0-0.8); Eosinophils # 0.4 10*3/uL (0.0-0.87); Hematocrit 24.8 VOL% (42.0-52.0); Hemoglobin 7.7 GM/DL (14.0-18.0); Immature Granulocytes % 0.7 %; Immature Granulocytes Absolute 0.06 #; Lymphocytes # 1.2 10*3/uL (1.4-4.0); Lymphocytes % 13.2 % (21.2-54.2); Mean Corpuscular Hemoglobin 29 PG (27-34); Mean Corpuscular Volume 93.2 FL (87-102); Mean Platelet Volume 11.8 FL (9.6-12.0); Monocytes # 0.9 10*3/uL (0.11-0.8); Monocytes % 9.9 % (1.7-12.7); Neutrophils # 6.6 10*3/uL (1.4-7.4); Neutrophils % 71.7 % (38.7-73.9); Platelet Count 157 T/CUMM (130-400); Red Blood Count 2.66 MC/CUMM (3.8-5.5); White Blood Count 9.2 T/CUMM (4-12)
[2016-11-02 05:32] LABS: Osmolality,Calculated 288.3 MOS/KG (273-304); Potassium 4.7 MMOL/L (3.5-5.1)
[2016-11-02] MEDS: INSULIN LISPRO 100 UNIT/ML SUBCUT SCH (07:58)
--- NOTE | 2016-11-02 09:08 | Discharge Summary ---
Hospital Course - Hospital Course Hospital Course: Mr. Storm is a very pleasant 76-year-old white male with multiple medical problems admitted by the hospitalist service on 11/01/2016 through the emergency room with metabolic encephalopathy. Patient suffered a fall at home and his sitter found him awake and alert but he was complaining of some right rib pain. He was taken by ambulance to the emergency room and was given 10 mg of morphine in transport. Patient would awaken with a sternal rub but go right back to sleep. He was admitted overnight for observation. This morning he is awake and alert and in good spirits and without complaints of pain. His vital signs are good and his labs are okay. He will be discharged home with a 2 week follow-up with his primary care physician. Complete discharge instructions were given to the patient. Care coordination, chart review, and completed discharge paperwork took approximately 31 minutes. - Time spent with patient Time with patient DS: Greater than 30 minutes Diagnosis - Discharge Diagnosis (1) Diabetes mellitus Status: Chronic (2) Atrial fibrillation Status: Chronic (3) Hypertension Status: Chronic (4) Diabetic foot infection Status: Chronic (5) Metabolic encephalopathy Status: Resolved (6) Congestive heart failure Status: Chronic (7) Paroxysmal a-fib Status: Chronic Discharge Plan - Discharge Data Disposition: Disch To Home/Self Care Condition at Discharge: Stable Discharge Diet: diabetic diet Activity: resume usual activities as tolerated Hygiene: no restrictions Contact your physician if you experience:: fever over 101, Shortness of breath - Discharge Medications Continue Levothyroxine Tab [Synthroid Tab] 100 mcg PO DAILY Sucralfate Tab [Carafate Tab] 1 gm PO TID W/MEALS tablet Atorvastatin [Lipitor] 10 mg PO BEDTIME Escitalopram [Lexapro] 20 mg PO DAILY Ferrous Sulfate 325 mg PO BID Furosemide Tab [Lasix Tab] 20 mg PO DAILY Magnesium Chloride [Slow Mag] 64 mg PO BID Tamsulosin [Flomax] 0.4 mg PO DAILY Insulin Aspart Prot/Insuln Asp [NovoLOG Mix 70-30 FlexPen] 30 unit SUBCUT BID Apixaban [Eliquis] 5 mg PO BID #60 tablet Zolpidem Tartrate [Ambien] 10 mg PO BEDTIME Omeprazole [Prilosec] 40 mg PO DAILY Fexofenadine HCl 180 mg PO DAILY Potassium Chloride 20 meq PO DAILY Cyanocobalamin Tab [Vitamin B12 Tab] 500 mcg PO DAILY Niacin [Slo-Niacin] 500 mg PO DAILY Aspirin EC Tab 81 mg PO DAILY tablet hydrALAZINE TAB [Apresoline Tab] 25 mg PO TID Methocarbamol Tab [Robaxin Tab] 500 mg PO BID Amiodarone Tab [Cordarone Tab] 200 mg PO DAILY Metoprolol Tartrate Tab [Lopressor Tab] 25 mg PO BID Saxagliptin HCl [Onglyza] 2.5 mg PO DAILY - Follow Up or Referral Follow Up: PCP, your [Other] - 2 Weeks - Forms/Instructions Exam - Constitutional Vitals: Period Temp Pulse Resp BP Sys/Hackett Pulse Ox Last 24 Hr 98.0 F-99.8 F 58-103 15-21 138-199/55-98 82-100 Exam: 76-year-old white male, no acute distress, alert and oriented Chest clear CV irregularly irregular Abdomen obese, nontender Extremities with minimal pedal edema and clean diabetic foot ulcers Discharge Results Procedures and tests throughout hospitalization: Pending Orders 11/01/16 16:45 MRSA Surveillence, Inf Control Routine Labs on day of discharge: Labs from last 24 hours 11/02/16 11/02/16 11/02/16 07:11 04:35 04:35 WBC 9.2 RBC 2.66 L Hgb 7.7 L Hct 24.8 L MCV 93.2 MCH 29 MCHC 31.0 L RDW 14.0 Plt Count 157 MPV 11.8 Neut % (Auto) 71.7 Lymph % (Auto) 13.2 L [place] % (Auto) 9.9 Eos % (Auto) 4.0 Baso % (Auto) 0.5 Neut # (Auto) 6.6 Lymph # (Auto) 1.2 L [place] # (Auto) 0.9 H Eos # (Auto) 0.4 Baso # (Auto) 0.1 Immature Gran % 0.7 Nucleated RBC % 0.0 Immature Gran # 0.06 Nucleated RBCs # 0.00 Immature Plt Fraction 0.0 Sodium 141 Potassium 4.7 Chloride 111 H Carbon Dioxide 25 Anion Gap 9.7 BUN 23 H Creatinine 1.80 H GFR Calculation 49 BUN/Creatinine Ratio 12.00 Glucose 177 H POC Glucose 209 H Calculated Osmolality 288.3 Calcium 8.0 L Total Bilirubin AST ALT Alkaline Phosphatase Total Creatine Kinase CK-MB (CK-2) Troponin I Total Protein Albumin Globulin Albumin/Globulin Ratio Urine Color Urine Appearance Urine pH Ur Specific [place] Urine Protein Urine Glucose (UA) Urine Ketones Urine Blood Urine Nitrate Urine Bilirubin Urine Urobilinogen Urine Leukocytes Urine RBC Urine WBC Urine Mucus Ur Culture Indicated? 11/01/16 11/01/16 11/01/16 16:39 13:06 12:07 WBC RBC Hgb Hct MCV MCH MCHC RDW Plt Count MPV Neut % (Auto) Lymph % (Auto) [place] % (Auto) Eos % (Auto) Baso % (Auto) Neut # (Auto) Lymph # (Auto) [place] # (Auto) Eos # (Auto) Baso # (Auto) Immature Gran % Nucleated RBC % Immature Gran # Nucleated RBCs # Immature Plt Fraction Sodium 139 Potassium 5.2 H Chloride 109 H Carbon Dioxide 24 Anion Gap 11.2 BUN 23 H Creatinine 1.90 H GFR Calculation 48 BUN/Creatinine Ratio 12.00 Glucose 225 H POC Glucose 293 H 256 H Calculated Osmolality 287.5 Calcium 8.2 L Total Bilirubin 0.50 AST 14 ALT 9 L Alkaline Phosphatase 109 Total Creatine Kinase 232 CK-MB (CK-2) 3.3 Troponin I 0.048 H Total Protein 7.8 Albumin 3.1 L Globulin 4.7 H Albumin/Globulin Ratio 0.6 L Urine Color Urine Appearance Urine pH Ur Specific [place] Urine Protein Urine Glucose (UA) Urine Ketones Urine Blood Urine Nitrate Urine Bilirubin Urine Urobilinogen Urine Leukocytes Urine RBC Urine WBC Urine Mucus Ur Culture Indicated? 11/01/16 11/01/16 12:07 11:27 WBC 12.6 H RBC 3.10 L Hgb 9.1 L Hct 28.5 L MCV 91.9 MCH 29 MCHC 31.9 L RDW 13.9 Plt Count 181 MPV 11.6 Neut % (Auto) 77.9 H Lymph % (Auto) 10.2 L [place] % (Auto) 7.5 Eos % (Auto) 2.8 Baso % (Auto) 0.6 Neut # (Auto) 9.8 H Lymph # (Auto) 1.3 L [place] # (Auto) 0.9 H Eos # (Auto) 0.4 Baso # (Auto) 0.1 Immature Gran % 1.0 Nucleated RBC % 0.0 Immature Gran # 0.12 Nucleated RBCs # 0.00 Immature Plt Fraction 0.0 Sodium Potassium Chloride Carbon Dioxide Anion Gap BUN Creatinine GFR Calculation BUN/Creatinine Ratio Glucose POC Glucose Calculated Osmolality Calcium Total Bilirubin AST ALT Alkaline Phosphatase Total Creatine Kinase CK-MB (CK-2) Troponin I Total Protein Albumin Globulin Albumin/Globulin Ratio Urine Color Straw Urine Appearance Clear Urine pH 5.0 Ur Specific [place] 1.010 Urine Protein 100 Urine Glucose (UA) >=500 Urine Ketones Negative Urine Blood Small Urine Nitrate Negative Urine Bilirubin Negative Urine Urobilinogen < 2.0 H Urine Leukocytes Negative Urine RBC 15 Urine WBC <1 Urine Mucus Occasional Ur Culture Indicated? Not indicated Preliminary micro results at discharge 11/01/16 16:45 MRSA Surveillance Culture - Preliminary Nares - Both Nares (Mrsa screen) No MRSA isolated. DS: Provider Date of admission: 11/01/16 15:29 Primary care physician: . No PCP Attending physician on admission: Carolyn Richmond MD Consults: 11/01/16 18:20 Consult to Dietitian [CONS] Routine Reason for Dietitian: Dietary Consult Discharging clinician: TONYA Cadet Expected date of discharge: 11/02/16
[2016-11-02] MEDS: PANTOPRAZOLE 40 MG TABLET PO SCH (10:01)
[2016-11-02] MEDS: CLOTRIMAZOLE 1% CREAM 15 GM TUBE TOP SCH (10:01)
[2016-11-02 12:09] VITALS: BP 174/71
== END 2016-11-02 13:35 | disposition home or self-care (01) ==
LOC: N.ED 10:06 → N.EDINP 10:06 → SUATTDRO 15:29 → N.CC 16:14
PROVIDERS: ADMIT Hospitalist; ATTEND Internal Medicine

== ENCOUNTER 2016-11-04 13:05 | Inpatient (IN) ==
[2016-11-04] MEDS ORDERED: FUROSEMIDE 100 MG/10 ML VIAL IV STA (14:01)
[2016-11-04] MEDS ORDERED: FUROSEMIDE 100 MG/10 ML VIAL ONE (14:03)
[2016-11-04 14:10] LABS: Basophils # 0.1 10*3/uL (0.0-0.2); Basophils % 0.9 % (0.0-0.8); Eosinophils # 0.7 10*3/uL (0.0-0.87); Eosinophils % 7.7 % (0.00-10.9); Hematocrit 26.6 VOL% (42.0-52.0); Hemoglobin 8.5 GM/DL (14.0-18.0); Immature Granulocytes % 1.3 %; Immature Granulocytes Absolute 0.12 #; Lymphocytes # 1.3 10*3/uL (1.4-4.0); Lymphocytes % 13.5 % (21.2-54.2); Mean Corpuscular Hemoglobin 29 PG (27-34); Mean Corpuscular Volume 91.7 FL (87-102); Mean Platelet Volume 11.7 FL (9.6-12.0); Monocytes # 0.9 10*3/uL (0.11-0.8); Monocytes % 9.2 % (1.7-12.7); Neutrophils # 6.4 10*3/uL (1.4-7.4); Neutrophils % 67.4 % (38.7-73.9); Platelet Count 211 T/CUMM (130-400); White Blood Count 9.4 T/CUMM (4-12)
[2016-11-04 14:42] LABS: Alanine Aminotransferase 9 U/L (16-61); Albumin 2.6 G/DL (3.4-5.0); Alkaline Phosphatase 92 U/L (45-117); Aspartate Amino Transferase 13 U/L (0-37); Bilirubin,Total < 0.39 MG/DL (0.2-1.0); Blood Urea Nitrogen 24 MG/DL (7-18); Calcium 8.3 MG/DL (8.5-10.1); Glucose 280 MG/DL (74-106); Osmolality,Calculated 286.8 MOS/KG (273-304); Potassium 4.4 MMOL/L (3.5-5.1); Sodium 137 MMOL/L (136-145); Total Protein 7.5 G/DL (6.4-8.3); Troponin I Only 0.032 NG/ML (0.00-0.045)
--- NOTE | 2016-11-04 14:42 | Emergency Department Note ---
Reginald Haddad Hilary, am scribing for, and in the presence of, Mathieu Silva MD 14: 07. Shira Haddad James D, MD, personally performed the services described in this documentation, ascribed by Kisha Montelongo in my presence, and it is both accurate and complete [id number] . Arrival - Arrival ED Nursing Triage Note: Swelling to bilat lower extrem and abd HX of CHF - pt states that he was seen and treated on Tuesday for fall and was sent home SOB with excertion. Mode of Arrival: Wheelchair Limitations: No Limitations Source: Patient - History of Present Illness Onset (ago): unknown Consistency: constant Severity: mild Severity scale (1-10): 1 <Mathieu Silva - Last Filed: 11/04/16 15:49> <Luis Manuel Mi - Last Filed: 11/04/16 17:28> - Arrival Chief Complaint: Shortness of Breath Stated Complaint: heart failure - History of Present Illness HPI Narrative: Pt is a 76 y/o male presenting to the ED with c/o swelling in his lower extremities and abdomen which worsened today. Pt confirms legs swelling, decreased urination and SOB but denies chest pain. He has a hx of CHF, MA, HTN, CAD, A.Fib, Pacemaker, IDDM, NIDDM, hypothroid, COPD and Bronchitis. No other complaints or problems stated in the ED. (Kisha Montelongo) Pt is a 76 y/o male presenting to the ED with c/o swelling in his lower extremities and abdomen which worsened today. Pt confirms legs swelling, decreased urination and SOB but denies chest pain. He has a hx of CHF, MA, HTN, CAD, A.Fib, Pacemaker, IDDM, NIDDM, hypothroid, COPD and Bronchitis. No other complaints or problems stated in the ED. (Mathieu Silva) Allergies/Adverse Reactions: Allergies Allergy/AdvReac Type Severity Reaction Status Date / Time levofloxacin [From Levaquin] Allergy Mild RASH Verified 11/01/16 10:21 Home Medications: Home Medications Medication Instructions Recorded Confirmed Type Levothyroxine Tab [Synthroid Tab] 100 mcg PO QAM 02/18/15 11/04/16 History Sucralfate Tab [Carafate Tab] 1 gm PO TID W/MEALS tablet 03/26/15 11/04/16 Rx Atorvastatin [Lipitor] 10 mg PO BEDTIME 11/12/15 11/04/16 History Escitalopram [Lexapro] 20 mg PO QAM 11/12/15 11/04/16 History Ferrous Sulfate 325 mg PO BID 11/12/15 11/04/16 History Furosemide Tab [Lasix Tab] 20 mg PO QAM 11/12/15 11/04/16 History Magnesium Chloride [Slow Mag] 64 mg PO BID 11/12/15 11/04/16 History Tamsulosin [Flomax] 0.4 mg PO QAM 11/12/15 11/04/16 History Insulin Aspart Prot/Insuln Asp 45 unit SUBCUT AC BREAKFAST 09/21/16 11/04/16 History [NovoLOG Mix 70-30 FlexPen] hydrALAZINE TAB [Apresoline Tab] 25 mg PO TID 09/21/16 11/04/16 History Apixaban [Eliquis] 5 mg PO BID #60 tablet 09/23/16 11/04/16 Rx Amiodarone Tab [Cordarone Tab] 200 mg PO QAM 10/12/16 11/04/16 History Cyanocobalamin Tab [Vitamin B12 500 mcg PO QAM 10/12/16 11/04/16 History Tab] Fexofenadine HCl 180 mg PO QAM 10/12/16 11/04/16 History Metoprolol Tartrate Tab [Lopressor 25 mg PO BID 10/12/16 11/04/16 History Tab] Niacin [Slo-Niacin] 500 mg PO QAM 10/12/16 11/04/16 History Omeprazole [Prilosec] 40 mg PO BID 10/12/16 11/04/16 History Potassium Chloride 20 meq PO QAM 10/12/16 11/04/16 History Saxagliptin HCl [Onglyza] 2.5 mg PO QAM 10/12/16 11/04/16 History Zolpidem Tartrate [Ambien] 10 mg PO BEDTIME PRN 10/12/16 11/04/16 History Insulin Aspart Prot/Asp 70/30 35 unit SUBCUT AC SUPPER 11/02/16 11/04/16 History [NovoLOG Mix 70/30] Aspirin EC Tab 81 mg PO QAM 08/24/17 08/24/17 History Review of System - Review of System 12 point system: reviewed and no additional remarkable complaints except as stated - Review of System Constitutional: Absent: fever Respiratory: Present: respiratory distress (SOB) Cardiovascular: Absent: chest pain Gastrointestinal: Present: abdominal pain (abdominal swelling) Musculoskeletal: Present: leg pain (swelling) <Mathieu Silva - Last Filed: 11/04/16 15:49> Medical,Surgical,& Family Hx - Medical History Cardio: History of: Cardiac Dysrhythmia (A. fib (Eliquis)), CHF, CAD, Hypertension, MA (1992), Pacemaker, Cardiovascular Problems ([employer] Dr. Chatterjee) Psychological: History of: Anxiety Disorders, Depression Neurology: History of: Cerebrovascular Accident (2015), Neurological Problems No history of: Seizures HEENT: History of: Ear Problem (Hearing Aides), Eye Problem (Glasses/Cataracts) , Dental Problems (ALL CAPS), HEENT Problems (Hard of hearing) No history of: Glaucoma, Oral Cancer Endocrine: History of: Diabetes Mellitus (IDDM), Diabetes Mellitus (NIDDM), Dyslipidemia, Thyroid Disorder (HYPOTHYROID) Respiratory: History of: Bronchitis, COPD No history of: Pneumonia (Current on Pneum Vac), Respiratory Problems (Flu Vac Current [id number] Season) Genitourinary: History of: Prostate Problems (BPH) Gastrointestinal: History of: GERD No history of: Polyps Musculoskeletal: History of: Amputation (Right Great Toe), Back/Neck Problems ( Neck pain), Musculoskeletal Problems (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 Whitmore;11/04/15 Sched for Rt Eye (cataract)) Patient denies: Thyroid Surgery, Tonsilectomy & Adenoidectomy Abdominal Surgeries: Surgical HX of: Colonoscopy Reproductive Surgeries: Patient denies;: Breast Surgery, Cystoscopy, Genitourinary Surgery, Prostate Surgery, Vasectomy Orthopedic Surgeries: Surgical HX of;: Orthopedic Surgery (Right arm surgery; Left shoulder surgery) Patient denies;: Implanted Devices, Total Hip Replacement, Total Knee Replacement - Family History Family History: Reports;: Family Heart Disease (Mother), Family Hypertension ( Mother & Father), Family Stroke (Mother) Denies;: Family Diabetes - Social History Smoking Status: Former smoker Frequency of Alcohol Use: None Type of Drug Use: None <Mathieu Silva D - Last Filed: 11/04/16 15:49> Exam <Mathieu Silva D - Last Filed: 11/04/16 15:49> <ShmuelMemphis W - Last Filed: 11/04/16 17:28> Physical Examination: GENERAL: This is a well-nourished, well-developed white male in no apparent distress. VITAL SIGNS: Temperature: 98.2 Pulse: 66 Respiratory: 20 Blood Pressure: 113/ 50 O2 Sat: 94 HEENT: Head is normocephalic and atraumatic. Pupils are equally round and reactive to light. Extraocular movement are intact. Oropharynx is benign with moist mucous membranes. NECK: Neck is soft and supple without tenderness. There are no masses. There is no lymphadenopathy. LUNGS: Lungs are clear to auscultation bilaterally. Chest rises symmetrically. There is no chest wall tenderness. CV: Heart is regular rate and rhythm without murmurs, rubs, or gallops. ABDOMEN: Abdomen is distended, non-tender to palpation. There are no abnormal masses palpated. There is no organomegaly. Bowel sounds are present and active. SKIN: Skin is warm and dry. No rash. EXTREMITIES: Patient has full range of motion without tenderness. There is 3+ pitting edema to LE bilaterally. NEUROLOGIC: Awake, alert, and oriented x4. Cranial nerves II through XII are grossly intact. There are no motorsensory deficits. PSYCHIATRIC: Normal affect. Normal mood. ([place],Kisha) GENERAL: This is a well-nourished, well-developed white male in no apparent distress. VITAL SIGNS: Temperature: 98.2 Pulse: 66 Respiratory: 20 Blood Pressure: 113/ 50 O2 Sat: 94 HEENT: Head is normocephalic and atraumatic. Pupils are equally round and reactive to light. Extraocular movement are intact. Oropharynx is benign with moist mucous membranes. NECK: Neck is soft and supple without tenderness. There are no masses. There is no lymphadenopathy. LUNGS: Lungs are clear to auscultation bilaterally. Chest rises symmetrically. There is no chest wall tenderness. CV: Heart is regular rate and rhythm without murmurs, rubs, or gallops. ABDOMEN: Abdomen is distended, non-tender to palpation. There are no abnormal masses palpated. There is no organomegaly. Bowel sounds are present and active. SKIN: Skin is warm and dry. No rash. EXTREMITIES: Patient has full range of motion without tenderness. There is 3+ pitting edema to LE bilaterally. NEUROLOGIC: Awake, alert, and oriented x4. Cranial nerves II through XII are grossly intact. There are no motorsensory deficits. PSYCHIATRIC: Normal affect. Normal mood. (Mathieu Silva) Vital Signs: Vital Signs Temperature 98.2 F 11/04/16 13:23 Pulse Rate 61 11/04/16 16:30 Respiratory Rate 20 11/04/16 16:30 Blood Pressure 139/59 11/04/16 16:30 O2 Sat by Pulse Oximetry 96 11/04/16 16:30 Course <Mathieu Silva - Last Filed: 11/04/16 15:49> <Luis Manuel Mi - Last Filed: 11/04/16 17:28> - Reevaluation(s) Reevaluation #1: Patient advised of need for hospitalization given multiple medical problems. ( Luis Manuel Mi) - Consultations Consultation #1: Discussed with Dr. Montenegro who felt his multifocal situations would be addressed by the hospitalist service. (Luis Manuel Mi) Consultation #2: Discussed with hospitalist service who will admit for further evaluation treatment (Luis Manuel Mi) Results - Labs CBC & BMP: 11/04/16 13:55 11/04/16 13:55 Lab Results: I have reviewed the patients labs - EKG EKG results: interpreted by ERMD - Diagnostic Findings Procedure: Chest x-ray: image reviewed by me <Mathieu Silva - Last Filed: 11/04/16 15:49> - Labs CBC & BMP: 11/04/16 13:55 11/04/16 13:55 - Diagnostic Findings Procedure: Chest x-ray: image reviewed by me, report reviewed by me ( Cardiomegaly with evidence of median sternotomy with pulmonary venous hypertension consistent with mild failure) <Luis Manuel Mi - Last Filed: 11/04/16 17:28> - Labs Labs: Laboratory Tests 11/04/16 11/04/16 13:55 13:55 WBC 9.4 RBC 2.90 L Hgb 8.5 L Hct 26.6 L Plt Count 211 D Lymph % (Auto) 13.5 L Baso % (Auto) 0.9 H Lymph # (Auto) 1.3 L [place] # (Auto) 0.9 H Sodium 137 Potassium 4.4 Chloride 107 Carbon Dioxide 21 BUN 24 H Creatinine 2.20 H Glucose 280 H Calcium 8.3 L ALT 9 L Troponin I 0.032 Albumin 2.6 L Globulin 4.9 H Albumin/Globulin Ratio 0.5 L Laboratory Tests 11/04/16 13:55 B-Natriuretic Peptide 466 H (Kisha Montelongo) Laboratory Tests 11/04/16 11/04/16 13:55 13:55 WBC 9.4 RBC 2.90 L Hgb 8.5 L Hct 26.6 L Plt Count 211 D Lymph % (Auto) 13.5 L Baso % (Auto) 0.9 H Lymph # (Auto) 1.3 L [place] # (Auto) 0.9 H Sodium 137 Potassium 4.4 Chloride 107 Carbon Dioxide 21 BUN 24 H Creatinine 2.20 H Glucose 280 H Calcium 8.3 L ALT 9 L Troponin I 0.032 Albumin 2.6 L Globulin 4.9 H Albumin/Globulin Ratio 0.5 L Laboratory Tests 11/04/16 13:55 B-Natriuretic Peptide 466 H (Mathieu Silva) I reviewed the laboratory noted the significant anemia, renal azotemia, and elevated BMP. (Luis Manuel Mi) - Impressions EKG: Electronic ventricular pacemaker with a rate of 64, no further interpretation possible. (Mathieu Silva) Disposition Case discussed with: patient <Mathieu Silva - Last Filed: 11/04/16 15:49> Time of Disposition: 17:28 <Luis Manuel Mi - Last Filed: 11/04/16 17:28> Clinical Impression: Congestive heart failure, Renal azotemia, Severe anemia Disposition: Still a Patient Condition: Guarded
--- NOTE | 2016-11-04 15:59 | EKG Report ---
Stationary ECG Study [facility] ER Test Date: 11/04/2016 1:37:09 PM Pat Name: KOKI PATRICIO Department: Room: Gender: M Manager Transportation Planning: MAE Arguello : 1940 Requested by: Luis Manuel Nagy Order Number: [id number] Tasha MD: YOHANNES RODRIGUEZ Intervals [place] Rate: 64 P: 999 VT: 0 QRS: -47 QRSD: 166 T: 106 QT: 483 QTc: 493 Interpretive Statements ELECTRONIC VENTRICULAR PACEMAKER UNDERLYING RHYTHM PROBABLY ATRIAL FIBRILLATION Electronically Signed On 11-04-16 16:37:41 CDT by YOHANNES RODRIGUEZ [id number]
--- NOTE | 2016-11-04 17:09 | XRay Report ---
XR chest 1V portable Indication: Dyspnea. Chest one view: Comparison 10/12/2016. Pacemaker device, cardiomegaly, calcified atheromatous disease the aorta, postoperative changes median sternotomy and interstitial prominence of the lung torres again shown. No new infiltrates are shown. Pleural spaces remain clear. Impression: No change. Cardiomegaly with interstitial prominence of the lungs, likely mild CHF, chronic. PROCEDURE INTERPRETED AT [facility] DEPARTMENT OF RADIOLOGY Final Report Signed by: Rodrick Brock M.D.
--- NOTE | 2016-11-04 17:33 | Hospitalist History & Physical ---
Assessment and Plan (1) Congestive heart failure Status: Acute Assessment and plan: Chest x-ray was significant for cardiomegaly with interstitial prominence of the lungs likely mild CHF. BNP was noted at 466. In addition, the patient was noted to be grossly edematous with +3 edema noted to his bilateral lower extremities. We will gently diurese and resume home medications as previously ordered. A cardiology consultation has been requested to evaluate and assist during the clinical encounter. We will recheck chest x-ray in a.m. We will order bilateral venous Doppler studies to rule out deep vein thrombosis. Current Visit: Yes (2) Anemia Status: Chronic Assessment and plan: Hemoglobin and hematocrit noted at 8.5 and 26.6. Upon review of the patient's medical record, during the last clinical encounter on November 02, 2016 in which he was noted at 7.7 and 24.8. We will monitor blood counts carefully during the clinical encounter. We will recheck H&H in a.m. Current Visit: No (3) Diabetes mellitus Status: Chronic Assessment and plan: We will obtain hemoglobin A1c and start Accu-Cheks with sliding scale coverage. Current Visit: No Qualifiers: Diabetes mellitus type: type 2 Diabetes mellitus complication detail: with other skin complication Qualified Code(s): E11.628 - Type 2 diabetes mellitus with other skin complications History of Present Illness Chief complaint: Shortness of breath History of present illness: This is a chronically ill 76-year-old male that presented to the ED at [facility] this afternoon for the evaluation of shortness of breath. Patient has a long and complex medical history significant for congestive heart failure, myocardial infarction, hypertension, coronary artery disease, atrial fibrillation, hypothyroidism, chronic obstructive pulmonary disease, cerebrovascular accident, bronchitis, insulin-dependent diabetes mellitus, pneumonia, benign prostatic hypertrophy, gastroesophageal reflux disease, chronic neck and back pain, anxiety, and depression. Patient has a surgical history significant for right great toe amputation, cardiac catheterization, coronary artery bypass graft, colonoscopy, right arm surgery, left shoulder surgery, and bilateral cataract removal. The patient is a poor historian. Upon review of the medical record, the patient was recently admitted to the critical care unit at [facility] from November 01 - November 02, 2016 after he sustained a fall and was given 10 mg of morphine in the field via EMS. During that encounter, the patient became somnolent and was placed in the critical care unit related to oversedation. They report that the patient has been short of breath since his discharge and that they noticed that the patient's lower extremities were grossly edematous. They report that his shortness of breath became very severe prompting them to return back to the ED for further evaluation. The patient was assessed at the time of ED presentation. The patient was noted to be grossly edematous to his bilateral lower extremities; +3. Labs were obtained which were significant for hemoglobin 8.5, hematocrit 26.6, BUN 24, creatinine 2.20, calcium 8.3, ALT 9, troponin 0 0.032, BNP 466, and albumin 2.6. Chest x-ray significant for cardiomegaly with interstitial prominence of the lungs likely mild CHF chronic. After brief discussion with both Dr. Cook and Dr. Mcgraw, the patient will be admitted to the hospitalist service for continuation of care. Home medications have been reviewed and reconciled. CODE STATUS discussed; patient is FULL CODE. Home Medications Medication Instructions Recorded Confirmed Type Levothyroxine Tab [Synthroid Tab] 100 mcg PO QAM 02/18/15 11/04/16 History Sucralfate Tab [Carafate Tab] 1 gm PO TID W/MEALS tablet 03/26/15 11/04/16 Rx Atorvastatin [Lipitor] 10 mg PO BEDTIME 11/12/15 11/04/16 History Escitalopram [Lexapro] 20 mg PO QAM 11/12/15 11/04/16 History Ferrous Sulfate 325 mg PO BID 11/12/15 11/04/16 History Furosemide Tab [Lasix Tab] 20 mg PO QAM 11/12/15 11/04/16 History Magnesium Chloride [Slow Mag] 64 mg PO BID 11/12/15 11/04/16 History Tamsulosin [Flomax] 0.4 mg PO QAM 11/12/15 11/04/16 History Insulin Aspart Prot/Insuln Asp 45 unit SUBCUT AC BREAKFAST 09/21/16 11/04/16 History [NovoLOG Mix 70-30 FlexPen] hydrALAZINE TAB [Apresoline Tab] 25 mg PO TID 09/21/16 11/04/16 History Apixaban [Eliquis] 5 mg PO BID #60 tablet 09/23/16 11/04/16 Rx Amiodarone Tab [Cordarone Tab] 200 mg PO QAM 10/12/16 11/04/16 History Cyanocobalamin Tab [Vitamin B12 500 mcg PO QAM 10/12/16 11/04/16 History Tab] Fexofenadine HCl 180 mg PO QAM 10/12/16 11/04/16 History Metoprolol Tartrate Tab [Lopressor 25 mg PO BID 10/12/16 11/04/16 History Tab] Niacin [Slo-Niacin] 500 mg PO QAM 10/12/16 11/04/16 History Omeprazole [Prilosec] 40 mg PO BID 10/12/16 11/04/16 History Potassium Chloride 20 meq PO QAM 10/12/16 11/04/16 History Saxagliptin HCl [Onglyza] 2.5 mg PO QAM 10/12/16 11/04/16 History Zolpidem Tartrate [Ambien] 10 mg PO BEDTIME PRN 10/12/16 11/04/16 History Insulin Aspart Prot/Asp 70/30 35 unit SUBCUT AC SUPPER 11/02/16 11/04/16 History [NovoLOG Mix 70/30] Aspirin EC Tab 81 mg PO QAM 11/04/16 11/04/16 History Allergies Allergy/AdvReac Type Severity Reaction Status Date / Time levofloxacin [From Levaquin] Allergy Mild RASH Verified 11/01/16 10:21 Medical,Surgical,& Family Hx - Medical History Cardio: History of: Cardiac Dysrhythmia (A. fib (Eliquis)), CHF, CAD, Hypertension, [place] (1992), Pacemaker, Cardiovascular Problems (Tar Heel Dr. Chatterjee) Psychological: History of: Anxiety Disorders, Depression Neurology: History of: Cerebrovascular Accident (2015), Neurological Problems No history of: Seizures HEENT: History of: Ear Problem (Hearing Aides), Eye Problem (Glasses/Cataracts) , Dental Problems (ALL CAPS), HEENT Problems (Hard of hearing) No history of: Glaucoma, Oral Cancer Endocrine: History of: Diabetes Mellitus (IDDM), Diabetes Mellitus (NIDDM), Dyslipidemia, Thyroid Disorder (HYPOTHYROID) Respiratory: History of: Bronchitis, COPD No history of: Pneumonia (Current on Pneum Vac), Respiratory Problems (Flu Vac Current [id number] Season) Genitourinary: History of: Prostate Problems (BPH) Gastrointestinal: History of: GERD No history of: Polyps Musculoskeletal: History of: Amputation (Right Great Toe), Back/Neck Problems ( Neck pain), Musculoskeletal Problems (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 Whitmore;11/04/15 Sched for Rt Eye (cataract)) Patient denies: Thyroid Surgery, Tonsilectomy & Adenoidectomy Abdominal Surgeries: Surgical HX of: Colonoscopy Reproductive Surgeries: Patient denies;: Breast Surgery, Cystoscopy, Genitourinary Surgery, Prostate Surgery, Vasectomy Orthopedic Surgeries: Surgical HX of;: Orthopedic Surgery (Right arm surgery; Left shoulder surgery) Patient denies;: Implanted Devices, Total Hip Replacement, Total Knee Replacement - Family History Family History: Reports;: Family Heart Disease (Mother), Family Hypertension ( Mother & Father), Family Stroke (Mother) Denies;: Family Diabetes - Social History Smoking Status: Former smoker Have you smoked in the last 12 months: No Frequency of Alcohol Use: None Type of Drug Use: None Marital Status: Single 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 Absent: conjunctival injection Pupils: Present: DOC, normal accommodation - ENT ENT exam: Present: normal exam, normal external ear exam, normal oropharynx - Neck Neck exam: Present: normal inspection. Absent: lymphadenopathy, meningismus, tenderness, thyromegaly - Respiratory Respiratory exam: Present: clear to auscultation bilaterally. Absent: rales, rhonchi, stridor, wheezes - Cardiovascular Cardiovascular exam: Present: regular rate and rhythm. Absent: carotid bruit, diastolic murmur, gallop, JVD, rubs, systolic murmur - GI/Abdominal GI/Abdominal exam: Present: normal bowel sounds, distended, other (Obese) - Extremities Exam Extremities exam: Present: normal inspection, normal capillary refill, full ROM , edema (+3 pitting edema) - Back Exam Back exam: Present: normal inspection - Neurological Exam Neurological exam: Present: alert, altered, CN II-XII intact - Psychiatric Psychiatric exam: Present: normal affect, normal mood - Skin Skin exam: Present: normal color, warm, dry Results - Labs CBC & BMP: 11/04/16 13:55 11/04/16 13:55 Lab Results: I have reviewed the past 24 hour labs
[2016-11-04] MEDS ORDERED: DEXTROSE 50% 25 GM/50 ML SYRINGE IV PRN (18:31)
[2016-11-04] MEDS ORDERED: GLUCAGON 1 MG VIAL IM PRN (18:31)
[2016-11-04] MEDS ORDERED: ZALEPLON 5 MG CAPSULE PO PRN (18:31)
[2016-11-04] MEDS ORDERED: ONDANSETRON 4 MG/2 ML VIAL IV PRN (18:31)
[2016-11-04] MEDS ORDERED: MORPHINE 2 MG/1 ML SYRINGE IV PRN (18:31)
[2016-11-04] MEDS: MAGNESIUM CHLORIDE 64 MG TABLET PO SCH (21:59)
[2016-11-04] MEDS: APIXABAN 5 MG TABLET PO SCH (21:59)
[2016-11-04] MEDS: FERROUS SULFATE 325 MG TABLET PO SCH (21:59)
[2016-11-04] MEDS: ATORVASTATIN 10 MG TABLET PO SCH (21:59)
[2016-11-04] MEDS: hydrALAZINE 25 MG TABLET PO SCH (22:00)
[2016-11-04] MEDS: PANTOPRAZOLE 40 MG TABLET PO SCH (22:01)
[2016-11-05 05:57] LABS: Albumin 2.5 G/DL (3.4-5.0); Bilirubin,Total 0.9 MG/DL (0.2-1.0); Calcium 8.1 MG/DL (8.5-10.1); Magnesium 1.9 MG/DL (1.8-2.4); Osmolality,Calculated 285.4 MOS/KG (273-304); Potassium 4.6 MMOL/L (3.5-5.1); Total Protein 6.7 G/DL (6.4-8.3); Troponin I Only 0.026 NG/ML (0.00-0.045)
[2016-11-05] MEDS: LEVOTHYROXINE 100 MCG TABLET PO SCH (06:22)
--- NOTE | 2016-11-05 07:20 | EKG Report ---
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
[2016-11-05] MEDS ORDERED: PANTOPRAZOLE 40 MG TABLET PO SCH (09:00)
[2016-11-05] MEDS: MAGNESIUM CHLORIDE 64 MG TABLET PO SCH ×2 (10:26→21:48)
[2016-11-05] MEDS: CYANOCOBALAMIN 500 MCG TABLET PO SCH (10:26)
[2016-11-05] MEDS: FERROUS SULFATE 325 MG TABLET PO SCH ×2 (10:27→21:48)
[2016-11-05] MEDS: POTASSIUM CHLORIDE 20 MEQ TABLET PO SCH (10:27)
[2016-11-05] MEDS: sitaGLIPtin 25 MG TABLET PO SCH (10:27)
[2016-11-05] MEDS: NIACIN ER 500 MG TABLET PO SCH (10:27)
[2016-11-05] MEDS: FEXOFENADINE 180 MG TABLET PO SCH (10:27)
[2016-11-05] MEDS: ESCITALOPRAM 10 MG TABLET PO SCH (10:28)
[2016-11-05] MEDS: PANTOPRAZOLE 40 MG TABLET PO SCH ×2 (10:28→21:48)
[2016-11-05] MEDS: ASPIRIN EC 81 MG TABLET PO SCH (10:28)
[2016-11-05] MEDS: TAMSULOSIN 0.4 MG CAPSULE PO SCH (10:28)
[2016-11-05] MEDS: AMIODARONE 200 MG TABLET PO SCH (10:29)
[2016-11-05] MEDS: SUCRALFATE 1 GM TABLET PO SCH ×3 (10:30→18:43)
[2016-11-05] MEDS: APIXABAN 5 MG TABLET PO SCH ×2 (10:30→21:49)
[2016-11-05] MEDS: hydrALAZINE 25 MG TABLET PO SCH ×3 (10:30→18:52)
[2016-11-05] MEDS: FUROSEMIDE 40 MG/4 ML VIAL IV SCH ×3 (10:31→18:44)
[2016-11-05] MEDS: INSULIN ASPART PROTAMINE/ASPART 70/30 100 UNIT/ML SUBCUT SCH ×2 (10:37→17:47)
--- NOTE | 2016-11-05 11:14 | Hospitalist Progress Note ---
Assessment and Plan (1) Acute on chronic systolic (congestive) heart failure Status: Acute Assessment and plan: 1)acute on chronic systolic CHF- repeat echo, last one in March had EF of 40% . consult cardiology as family requests. Continue diuresis. 2)anemia 3)LE edema 4)debility with unrealistic expectations of improvement without further treatment- at this point he is choosing home with home health which is what he has been doing without improvement. I suggested to his brother that if his sitter was unwilling to take care of him until he had been to swing bed and toldl him so that that might motivate him to consider it. Current Visit: Yes (2) Debility Status: Chronic Current Visit: No (3) History of pacemaker Status: Acute Current Visit: No (4) Chronic kidney disease, stage 3 Status: Chronic Current Visit: No Hospitalist: Subjective Interval history: Mr Storm is feeling better this morning and asks to be discharged. I discussed what had happened since discharge earlier this week, and he says his edema is better today. Denies chest pain or shortness of breath. He has some soreness on his left side. His brother and his sitter are here with him this morning. Mr Storm says more than anything he wants to be at home. He refuses to go to swing bed. He refuses to go to outpatient PT/OT. His brother and sitter say that it is becoming increasingly hard to care for him at home and they want him to go to swing bed. He is counting on a woman from OR arriving next week who plans to stay with him at night. His brother has no confidence in her. Mr Storm does not credit anything I say about the benefits of swing bed or TMR, or anything his brother or sitter say. When asked explicitly he ranks being at home over getting stronger. I discussed hospice with him and he was at first interested but his brother doesn't want that if he can't also have PT. This morning he is much as he was at discharge a couple of days ago, but this time with LE edema. His color is pale also. He was able to move around the room before discharge 2 days ago, though he was weak and a fall risk. He refused swing bed at that time also. Exam - Constitutional Vitals: Period Temp Pulse Resp BP Sys/Hackett Pulse Ox Last 24 Hr 97.6 F-98.2 F 60-66 16-20 111-208/50-87 93-100 General appearance: no acute distress, morbidly obese - Eye Eye exam: Present: EOMI. Absent: scleral icterus - Respiratory Respiratory exam: Present: clear to auscultation bilaterally. Absent: rales, rhonchi - Cardiovascular Cardiovascular exam: Present: irregular rhythm - GI/Abdominal GI/Abdominal exam: Present: normal bowel sounds, soft. Absent: tenderness - Extremities Exam Extremities exam: Present: edema (1+ LE edema) - Neurological Exam Neurological exam: Present: alert, oriented X3 - Skin Skin exam: Present: warm, dry Results - Labs CBC & BMP: 11/04/16 13:55 11/05/16 03:56 Lab Results: I have reviewed the past 24 hour labs
--- NOTE | 2016-11-05 15:36 | ECHO Report ---
Mathieu Storm Exam Date: 11/05/2016 13:21 Referring Physician: Technologist: Magali Lino RDCS Age: 76 Ht (in): 73 Wt (lb): 272 Gender: M Exam Location: [facility] Echo Indications: Acute on chronic systolic (congestive) heart failure, Anemia, Lower extremity edema, Presence of cardiac pacemaker, Chronic kidney disease, stage 3 (moderate) BP: 208 / 87 HR: 67 Rhythm: Pacemaker Technical Quality: IMPRESSIONS Left ventricular ejection fraction is estimated at 55 %. Moderate left ventricular hypertrophy. Diastolic dysfunction is equivocal. Tricuspid regurgitation velocities suggest a RVSP of 44 mmHg. MEASUREMENTS (Male / Female) Normal Values 2D ECHO LV Diastolic Diameter PLAX 5.6 cm 4.2 - 5.9 / 3.9 - 5.3 cm LV Systolic Diameter PLAX 3.8 cm LV Fractional Shortening PLAX 32.4 % IVS Diastolic Thickness 1.5 cm 0.6 - 1.0 / 0.6 - 0.9 cm LVPW Diastolic Thickness 1.5 cm 0.6 - 1.0 / 0.6 - 0.9 cm RV Internal Dim ED PLAX 3.4 cm Aortic Root Diameter 3.8 cm LA Systolic Diameter LX 5.5 cm 3.0 - 4.0 / 2.7 - 3.8 cm DOPPLER TR Peak Velocity 331.0 cm/s TR Peak Gradient 43.8 mmHg FINDINGS Left Ventricle Normal left ventricular cavity size. Moderate left ventricular hypertrophy. Left ventricular ejection fraction is estimated at 55 %. Diastolic dysfunction is equivocal. Right Ventricle Normal right ventricular size and systolic function. Catheter/pacemaker wire visualized in the right ventricle. Right Atrium Normal right atrial size. Catheter/pacemaker wire in the right atrial cavity. Left Atrium Moderately increased left atrial size. Mitral Valve Morphologically normal mitral valve. Mild mitral valve regurgitation. Aortic Valve Mild aortic valve sclerosis without stenosis or regurgitation. Tricuspid Valve Morphologically normal tricuspid valve. Mild tricuspid valve regurgitation. Tricuspid regurgitation velocities suggest a RVSP of 44 mmHg. Pulmonic Valve Morphologically normal pulmonic valve. Mild pulmonary valve regurgitation. Pericardium Normal pericardium without effusion. Aorta Normal ascending aorta dimension. Sabina Blount (Electronically Signed) Final Date: 05 November 2016 15:35
--- NOTE | 2016-11-05 16:16 | Cardiology Consult Note ---
Boo, Ana Bray RN, am scribing for, and in the presence of, Sabina Blount DO 16 :12. Assessment and Plan - Time spent with patient Time spent with patient: Greater than 30 minutes (1) Hypertension Status: Acute Assessment and plan: I think this is the etiology of his heart failure with preserved ejection fraction he has diastolic dysfunction and hypertension has precipitated diastolic heart failure. 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 CHATTERJEE Mr. Storm, 76 year old WM, with risk factor significant for: diabetes, hypertension, obesity, former tobacco use, and previous history of CAD. Cardiac history include coronary artery bypass grafting 3 in 2005 with coronary stent placement since, chronic atrial fibrillation/flutter, ischemic cardiomyopathy with heart failure. He is status post dual-chamber pacemaker implant in [place] [address] Nguyễn for sick sinus syndrome and symptomatic bradycardia. Echocardiogram that admission with mildly dilated LV, EF 40%, moderate diastolic dysfunction, mild to moderate biatrial enlargement, mild TR with PA pressure 27 mmHg. Other pertinent medical history includes chronic kidney disease with anemia, COPD, CVA, hypothyroidism, and PVD. He is chronically anticoagulated for stroke prevention with Eliquis. He is generally sedentary, he has sitters to assist him at home. He was just discharged from [facility] on 11/02 after 23 hour observation status post fall and metabolic encephalopathy. Apparently, while en route to hospital for evaluation of right rib pain s/p fall, he was given 10 mg IV morphine with obtundation afterward. He is now admitted 2 days later to [facility] telemetry after presenting to the ER complaining of shortness of breath with exertion and some increasing bilateral lower extremity edema. Chest x-ray with cardiomegaly and some interstitial prominence suggestive of mild CHF. BNP 466. H&H 8.5/ 26.6 (H&H at discharge on 11/02 7.7/24.8). He received Lasix 80 mg IV 1 dose while in ER. Cardiology has been asked to see now for further evaluation of CHF. Mr. Storm is lying flat in bed this afternoon at time of exam, and he is not experiencing any dyspnea orthopnea. He is somewhat drowsy, mumbles, but will rouse and respond appropriately. Echocardiogram is being obtained at bedside and the ejection fraction is 55%. He has right-sided pressures estimated 44 mmHg plus the right atrial pressure.. Mr. Storm has a sitter present with him and states that he has been doing poorly since a fall that he had on Tuesday he was in the hospital he went home and he came back with "swelling all over.". He reports he feels much better today. No chest pain. Labs reviewed. Creatinine stable at 2.1. BNP 519. Electrolytes within acceptable range. Cell count as above. Blood pressure is somewhat elevated today with SBP ranging 170-200 mmHg. CC: Venus Ross MD - Home Medications and Allergies Home Medications: Home Medications Medication Instructions Recorded Confirmed Type Levothyroxine Tab [Synthroid Tab] 100 mcg PO DAILY 02/18/15 11/04/16 History Sucralfate Tab [Carafate Tab] 1 gm PO TID W/MEALS tablet 03/26/15 11/04/16 Rx Atorvastatin [Lipitor] 10 mg PO BEDTIME 11/12/15 11/04/16 History Escitalopram [Lexapro] 20 mg PO DAILY 11/12/15 11/04/16 History Ferrous Sulfate 325 mg PO BID 11/12/15 11/04/16 History Furosemide Tab [Lasix Tab] 20 mg PO DAILY 11/12/15 11/04/16 History Magnesium Chloride [Slow Mag] 64 mg PO BID 11/12/15 11/04/16 History Tamsulosin [Flomax] 0.4 mg PO DAILY 11/12/15 11/04/16 History Insulin Aspart Prot/Insuln Asp 45 unit SUBCUT AC BREAKFAST 09/21/16 11/04/16 History [NovoLOG Mix 70-30 FlexPen] hydrALAZINE TAB [Apresoline Tab] 25 mg PO TID 09/21/16 11/04/16 History Apixaban [Eliquis] 5 mg PO BID #60 tablet 09/23/16 11/04/16 Rx Amiodarone Tab [Cordarone Tab] 200 mg PO DAILY 10/12/16 11/04/16 History Cyanocobalamin Tab [Vitamin B12 500 mcg PO DAILY 10/12/16 11/04/16 History Tab] Fexofenadine HCl 180 mg PO DAILY 10/12/16 11/04/16 History Metoprolol Tartrate Tab [Lopressor 25 mg PO BID 10/12/16 11/04/16 History Tab] Niacin [Slo-Niacin] 500 mg PO DAILY 10/12/16 11/04/16 History Omeprazole [Prilosec] 40 mg PO BID 10/12/16 11/04/16 History Potassium Chloride 20 meq PO DAILY 10/12/16 11/04/16 History Saxagliptin HCl [Onglyza] 2.5 mg PO DAILY 10/12/16 11/04/16 History Zolpidem Tartrate [Ambien] 10 mg PO BEDTIME PRN 10/12/16 11/04/16 History Insulin Aspart Prot/Asp 70/30 35 unit SUBCUT AC SUPPER 11/02/16 11/04/16 History [NovoLOG Mix 70/30] Aspirin EC Tab 81 mg PO DAILY 11/04/16 11/04/16 History Clotrimazole 1% Cream [Lotrimin 1% 1 applic TOP BID 11/04/16 11/04/16 History Cream] Allergies/Adverse Reactions: Allergies Allergy/AdvReac Type Severity Reaction Status Date / Time levofloxacin [From [facility]] Allergy Mild RASH Verified 11/01/16 10:21 - Constitutional Constitutional: Present: daytime sleepiness, fatigue. Absent: chills, fever(s) , frequent falls, weakness, weight gain, weight loss - EENT Eyes: Absent: blurry vision Ears: Absent: decreased hearing Nose, mouth and throat: Absent: dysphagia, epistaxis, neck pain, tongue swelling - Cardiovascular Cardiovascular: Present: dyspnea on exertion (Prior to arrival), edema (1-2+ bilateral lower extremities). Absent: chest pain at rest, chest pain with activity, diaphoresis, radiating jaw, neck or arm pain, lightheadedness, orthopnea, palpitations, PND - Respiratory Respiratory: Absent: hemoptysis, dyspnea on exertion, pain on inspiration, change in phlegm color - Gastrointestinal Gastrointestinal: Absent: abdominal pain, constipation, diarrhea, early satiety , melena, nausea, vomiting, jaundice - Genitourinary Genitourinary: Absent: flank pain, hematuria - Musculoskeletal Musculoskeletal: Present: arthralgias, limited range of motion. Absent: myalgias - Neurological Neurological: Present: abnormal gait. Absent: confusion, dizziness, syncope, tremor(s) - Psychiatric Psychiatric: Present: anxiety, depression - Endocrine Endocrine: Absent: cold intolerance, heat intolerance - Hematologic/Lymphatic Hematologic/Lymphatic: Absent: easy bleeding, easy bruising Medical,Surgical,& Family Hx - Medical History Cardio: History of: Cardiac Dysrhythmia (A. fib (Eliqu)), CHF, CAD, Hypertension, [place] (1992), Pacemaker, PVD, Cardiovascular Problems (Ob Gyn Dr. Chatterjee) Psychological: History of: Anxiety Disorders, Depression Neurology: History of: Cerebrovascular Accident (2015), Neurological Problems No history of: Seizures HEENT: History of: Ear Problem (Hearing Aides), Eye Problem (Glasses/Cataracts) , Dental Problems (ALL CAPS), HEENT Problems (Hard of hearing) No history of: Glaucoma, Oral Cancer Endocrine: History of: Diabetes Mellitus (IDDM), Diabetes Mellitus (NIDDM), Dyslipidemia, Thyroid Disorder (HYPOTHYROID) Respiratory: History of: Bronchitis, COPD No history of: Pneumonia (Current on Pneum Vac), Respiratory Problems (Flu Vac Current [id number] Season) Genitourinary: History of: Prostate Problems (BPH) Gastrointestinal: History of: GERD No history of: Polyps Musculoskeletal: History of: Amputation (Right Great Toe), Back/Neck Problems ( Neck pain), Musculoskeletal Problems (States he has a 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 Whitmore;11/04/15 Sched for Rt Eye (cataract)) Patient denies: Thyroid Surgery, Tonsilectomy & Adenoidectomy Abdominal Surgeries: Surgical HX of: Colonoscopy Reproductive Surgeries: Patient denies;: Breast Surgery, Cystoscopy, Genitourinary Surgery, Prostate Surgery, Vasectomy Orthopedic Surgeries: Surgical HX of;: Orthopedic Surgery (Right arm surgery; Left shoulder surgery) Patient denies;: Implanted Devices, Total Hip Replacement, Total Knee Replacement - Family History Family History: Reports;: Family Heart Disease (Mother), Family Hypertension ( Mother & Father), Family Stroke (Mother) Denies;: Family Diabetes - Social History Smoking Status: Former smoker Frequency of Alcohol Use: None Type of Drug Use: None Physical Examination Vital Signs Temp Pulse Resp BP Pulse Ox 98.2 F 66 20 113/50 94 L 11/04/16 13:23 11/04/16 13:23 11/04/16 13:23 11/04/16 13:23 11/04/16 13:23 General: Present: No Apparent Distress, Other (Frail, obese) HEENT: Present: Pallor, PERRL, Normocephaly Neck: Present: Midline Trachea, No JVD/HJR, No Bruit Cardiac: Present: Irregularly Regular (Atrial pacing; underlying A. fib), Systolic Murmur. Absent: Tachycardia, Bradycardia Lungs: Present: Wheezes, Scattered Rhonchi. Absent: Oxygen Neuro: Present: Grossly Intact. Absent: Numbness, Resting Tremor, Essential Tremor Abdomen: Present: Soft, Active Bowel Sounds. Absent: Mass, Tender, Firm, Distended Skin: Present: Clear. Absent: Rash, Suspicious Lesions Musculoskeletal: Present: Decreased Range of Motion, No Fluid Collection Extremities: Present: No Clubbing, Normal Upper Extr. Pulses (3+ bilaterally), Normal Lower Extr. Pulses (1-2+ bilateral), +2 Edema, Capillary Refill (Normal) Result/EKG - Labs CBC & BMP: 11/04/16 13:55 11/05/16 03:56 Lab Results: I have reviewed the past 24 hour labs Labs: Laboratory Results - last 24 hr 11/04/16 11/04/16 11/04/16 13:55 13:55 19:51 Sodium 137 Potassium 4.4 Chloride 107 Carbon Dioxide 21 Anion Gap 13.4 BUN 24 H Creatinine 2.20 H GFR Calculation 39 BUN/Creatinine Ratio 10.00 Glucose 280 H POC Glucose 230 H Calculated Osmolality 286.8 Calcium 8.3 L Magnesium Total Bilirubin < 0.39 AST 13 ALT 9 L Alkaline Phosphatase 92 Total Creatine Kinase Troponin I 0.032 B-Natriuretic Peptide 466 H Total Protein 7.5 Albumin 2.6 L Globulin 4.9 H Albumin/Globulin Ratio 0.5 L 11/05/16 11/05/16 11/05/16 03:56 03:56 08:10 Sodium 140 Potassium 4.6 Chloride 108 H Carbon Dioxide 25 Anion Gap 11.6 BUN 25 H Creatinine 2.10 H GFR Calculation 42 BUN/Creatinine Ratio 11.00 Glucose 160 H POC Glucose 183 H Calculated Osmolality 285.4 Calcium 8.1 L Magnesium 1.9 Total Bilirubin 0.90 AST 9 ALT 11 L Alkaline Phosphatase 96 Total Creatine Kinase 122 D Troponin I 0.026 B-Natriuretic Peptide 519 H Total Protein 6.7 Albumin 2.5 L Globulin 4.2 H Albumin/Globulin Ratio 0.5 L 11/05/16 12:00 Sodium Potassium Chloride Carbon Dioxide Anion Gap BUN Creatinine GFR Calculation BUN/Creatinine Ratio Glucose POC Glucose 289 H Calculated Osmolality Calcium Magnesium Total Bilirubin AST ALT Alkaline Phosphatase Total Creatine Kinase Troponin I B-Natriuretic Peptide Total Protein Albumin Globulin Albumin/Globulin Ratio - Diagnostic Findings Procedure: Chest x-ray: image reviewed by me, report reviewed by me - EKG EKG results: interpreted by me, no acute changes (Atrially paced; chronic atrial fibrillation) Mine Haddad Shea, , personally performed the services described in this documentation, ascribed by Ana Bray RN in my presence, and it is both accurate and complete 612 .
[2016-11-05] MEDS ORDERED: hydrALAZINE 20 MG/1 ML VIAL IV PRN (16:19)
[2016-11-05] MEDS: ALBUTEROL 0.63 MG/3 ML NEB RESP TX SCH (19:55)
[2016-11-05] MEDS: ATORVASTATIN 10 MG TABLET PO SCH (21:48)
[2016-11-05] MEDS: BENZONATATE 100 MG CAPSULE PO SCH (21:48)
[2016-11-05] MEDS: CLOTRIMAZOLE 1% CREAM 15 GM TUBE TOP SCH (21:49)
[2016-11-06] MEDS: HYDROcodone/CHLORPHENIRAMINE ER 5 ML UDCUP PO PRN (01:32)
[2016-11-06] MEDS: ALBUTEROL 0.63 MG/3 ML NEB RESP TX SCH ×4 (02:11→19:41)
[2016-11-06 04:52] LABS: Basophils # 0.1 10*3/uL (0.0-0.2); Basophils % 1.1 % (0.0-0.8); Eosinophils # 0.6 10*3/uL (0.0-0.87); Eosinophils % 6.5 % (0.00-10.9); Hematocrit 24.9 VOL% (42.0-52.0); Immature Granulocytes % 1.2 %; Immature Granulocytes Absolute 0.11 #; Lymphocytes # 1.9 10*3/uL (1.4-4.0); Mean Corpuscular HGB Conc 32.1 GM/DL (32-36); Mean Corpuscular Hemoglobin 29 PG (27-34); Mean Corpuscular Volume 90.2 FL (87-102); Mean Platelet Volume 11.6 FL (9.6-12.0); Monocytes % 11.5 % (1.7-12.7); Neutrophils # 5.2 10*3/uL (1.4-7.4); Neutrophils % 58.7 % (38.7-73.9); Platelet Count 212 T/CUMM (130-400); Red Blood Count 2.76 MC/CUMM (3.8-5.5); Red Cell Distribution Width 13.6 % (9.3-17.3); White Blood Count 8.9 T/CUMM (4-12)
[2016-11-06 05:10] LABS: Calcium 8.4 MG/DL (8.5-10.1); Osmolality,Calculated 284.3 MOS/KG (273-304); Potassium 4.1 MMOL/L (3.5-5.1)
[2016-11-06] MEDS: LEVOTHYROXINE 100 MCG TABLET PO SCH (06:28)
--- NOTE | 2016-11-06 09:02 | Hospitalist Progress Note ---
Assessment and Plan - Time spent with patient Time spent with patient: Less than 30 minutes (1) CHF (congestive heart failure) Status: Chronic Assessment and plan: Patient has acute on chronic decompensation of congestive heart failure with preserved ejection fraction (EF 55%). He has improved clinically. Will begin converting to oral medications with continued optimization of therapy with hopeful plans to discharge within 24-48 hours Current Visit: Yes Qualifiers: Congestive heart failure type: diastolic Congestive heart failure chronicity: acute on chronic Qualified Code(s): I50.33 - Acute on chronic diastolic (congestive) heart failure (2) Hypertension Status: Chronic Assessment and plan: Blood pressures are uncontrolled at this time. Will optimize therapy for blood pressure control prior to discharge. Current Visit: No Qualifiers: Hypertension type: essential hypertension Qualified Code(s): I10 - Essential (primary) hypertension (3) Diabetes mellitus Status: Chronic Assessment and plan: Continuing home regimen with Accu-Cheks and sliding scale insulin. 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 Avoid any nephrotoxic injury or insults. Current Visit: Yes Qualifiers: Chronic kidney disease stage: stage 3 (moderate) Qualified Code(s): N18.3 - Chronic kidney disease, stage 3 (moderate) (5) Anemia Status: Chronic Assessment and plan: Stable without any evidence of bleeding. Current Visit: No Hospitalist: Subjective Interval history: Chart is been reviewed and patient examined. This 76-year-old male who presented for evaluation of shortness of breath. He has had echocardiogram noting left ventricular ejection fraction estimated at 55%. Today he denies any chest pain and states his breathing is back to normal. Exam - Constitutional Vitals: Period Temp Pulse Resp BP Sys/Hackett Pulse Ox Last 24 Hr 97.9 F-99.8 F 62-87 16-20 146-208/61-93 95-99 General appearance: no acute distress - Head Head exam: Present: normocephalic, atraumatic - Eye Eye exam: Present: EOMI Pupils: Present: DOC - ENT ENT exam: Present: normal exam - Neck Neck exam: Present: normal inspection - Respiratory Respiratory exam: Present: clear to auscultation bilaterally. Absent: rales, rhonchi, wheezes - Cardiovascular Cardiovascular exam: Present: regular rate and rhythm - GI/Abdominal GI/Abdominal exam: Present: normal bowel sounds, soft. Absent: tenderness, rebound - Extremities Exam Extremities exam: Present: normal inspection - Back Exam Back exam: Present: normal inspection - Neurological Exam Neurological exam: Present: alert, oriented X3, CN II-XII intact. Absent: motor sensory deficit - Psychiatric Psychiatric exam: Present: normal affect, normal mood. Absent: agitated, anxious - Skin Skin exam: Present: warm, dry. Absent: erythema Results - Labs CBC & BMP: 11/06/16 03:45 11/06/16 03:45 Lab Results: I have reviewed the past 24 hour labs
[2016-11-06] MEDS: CLOTRIMAZOLE 1% CREAM 15 GM TUBE TOP SCH ×2 (10:01→20:50)
[2016-11-06] MEDS: TAMSULOSIN 0.4 MG CAPSULE PO SCH (10:03)
[2016-11-06] MEDS: FERROUS SULFATE 325 MG TABLET PO SCH ×2 (10:03→20:50)
[2016-11-06] MEDS: NIACIN ER 500 MG TABLET PO SCH (10:04)
[2016-11-06] MEDS: FEXOFENADINE 180 MG TABLET PO SCH (10:04)
[2016-11-06] MEDS: BENZONATATE 100 MG CAPSULE PO SCH ×3 (10:04→20:49)
[2016-11-06] MEDS: MAGNESIUM CHLORIDE 64 MG TABLET PO SCH ×2 (10:04→20:49)
[2016-11-06] MEDS: CYANOCOBALAMIN 500 MCG TABLET PO SCH (10:05)
[2016-11-06] MEDS: sitaGLIPtin 25 MG TABLET PO SCH (10:05)
[2016-11-06] MEDS: SUCRALFATE 1 GM TABLET PO SCH ×3 (10:05→17:10)
[2016-11-06] MEDS: ESCITALOPRAM 10 MG TABLET PO SCH (10:06)
[2016-11-06] MEDS: CARVEDILOL 3.125 MG TABLET PO SCH ×2 (10:06→20:50)
[2016-11-06] MEDS: POTASSIUM CHLORIDE 20 MEQ TABLET PO SCH (10:07)
[2016-11-06] MEDS: APIXABAN 5 MG TABLET PO SCH ×2 (10:08→20:49)
[2016-11-06] MEDS: ASPIRIN EC 81 MG TABLET PO SCH (10:08)
[2016-11-06] MEDS: AMIODARONE 200 MG TABLET PO SCH (10:08)
[2016-11-06] MEDS: PANTOPRAZOLE 40 MG TABLET PO SCH ×2 (10:08→20:50)
[2016-11-06] MEDS: INSULIN ASPART PROTAMINE/ASPART 70/30 100 UNIT/ML SUBCUT SCH ×2 (10:10→17:08)
[2016-11-06] MEDS: FUROSEMIDE 40 MG/4 ML VIAL IV SCH (10:20)
--- NOTE | 2016-11-06 10:34 | Cardiology Progress Note ---
Assessment and Plan (1) Hypertension Status: Acute Assessment and plan: I think this is the etiology of his heart failure with preserved ejection fraction he has diastolic dysfunction and hypertension has precipitated diastolic heart failure. As per HPI escalate therapy. His EF is preserved he is not on JANNETTE or ARB because of his renal insufficiency at this point. 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 tSorm is subjectively much better his coughing has gotten better. His swelling is better and his only complaint today is that he wants to go home. His blood pressure is not controlled and I think this needs to be tightened up before we consider discharge. I discussed with Dr. Murray he is added carvedilol to his regimen and I concur I will also aggressively increase his hydralazine. Continue amiodarone and Eliquis. He appears to be intermittently atrially paced in sinus rhythm is underlying mechanism today. Exam (Progress Note) - Constitutional Vitals: Period Temp Pulse Resp BP Sys/Hackett Pulse Ox Last 24 Hr 97.9 F-99.8 F 62-87 16-20 146-208/61-93 95-99 General appearance: morbidly obese - Head Head exam: Present: normal inspection - Eye Eye exam: Present: EOMI Pupils: Present: DOC - Neck Neck exam: Present: normal inspection - Respiratory Respiratory exam: Present: clear to auscultation bilaterally (Dramatically improved from yesterday) - Cardiovascular Cardiovascular exam: Present: regular rate and rhythm - GI/Abdominal GI/Abdominal exam: Present: normal bowel sounds - Extremities Exam Extremities exam: Present: normal inspection - Back Exam Back exam: Present: normal inspection - Neurological Exam Neurological exam: Present: alert, oriented X3 - Psychiatric Psychiatric exam: Present: normal affect, normal mood - Skin Skin exam: Present: normal color, warm Result/EKG - Labs CBC & BMP: 11/06/16 03:45 11/06/16 03:45 Labs: Laboratory Results - last 24 hr 11/05/16 11/05/16 11/05/16 12:00 16:03 19:30 WBC RBC Hgb Hct MCV MCH MCHC RDW Plt Count MPV Neut % (Auto) Lymph % (Auto) Sully % (Auto) Eos % (Auto) Baso % (Auto) Neut # (Auto) Lymph # (Auto) Sully # (Auto) Eos # (Auto) Baso # (Auto) Immature Gran % Nucleated RBC % Immature Gran # Nucleated RBCs # Immature Plt Fraction Sodium Potassium Chloride Carbon Dioxide Anion Gap BUN Creatinine GFR Calculation BUN/Creatinine Ratio Glucose POC Glucose 289 H 243 H 258 H Calculated Osmolality Calcium 11/06/16 11/06/16 11/06/16 03:45 03:45 07:30 WBC 8.9 RBC 2.76 L Hgb 8.0 L Hct 24.9 L MCV 90.2 MCH 29 MCHC 32.1 RDW 13.6 Plt Count 212 MPV 11.6 Neut % (Auto) 58.7 Lymph % (Auto) 21.0 L Sully % (Auto) 11.5 Eos % (Auto) 6.5 Baso % (Auto) 1.1 H Neut # (Auto) 5.2 Lymph # (Auto) 1.9 Sully # (Auto) 1.0 H Eos # (Auto) 0.6 Baso # (Auto) 0.1 Immature Gran % 1.2 Nucleated RBC % 0.0 Immature Gran # 0.11 Nucleated RBCs # 0.00 Immature Plt Fraction 0.0 Sodium 141 Potassium 4.1 Chloride 107 Carbon Dioxide 27 Anion Gap 11.1 BUN 24 H Creatinine 2.00 H GFR Calculation 45 BUN/Creatinine Ratio 12.00 Glucose 90 POC Glucose 95 Calculated Osmolality 284.3 Calcium 8.4 L
[2016-11-06] MEDS: ATORVASTATIN 10 MG TABLET PO SCH (20:50)
[2016-11-06] MEDS: DEXTROMETHORPHAN ER 6 MG/ML 90 ML/BOTTLE PO PRN (20:50)
[2016-11-07] MEDS: ALBUTEROL 0.63 MG/3 ML NEB RESP TX SCH ×4 (00:59→19:16)
[2016-11-07] MEDS: DEXTROMETHORPHAN ER 6 MG/ML 90 ML/BOTTLE PO PRN ×2 (04:41→11:08)
[2016-11-07] MEDS: LEVOTHYROXINE 100 MCG TABLET PO SCH (06:41)
--- NOTE | 2016-11-07 09:54 | Hospitalist Progress Note ---
Assessment and Plan - Time spent with patient Time spent with patient: Less than 30 minutes (1) CHF (congestive heart failure) Status: Chronic Assessment and plan: Patient has acute on chronic decompensation of congestive heart failure with preserved ejection fraction (EF 55%). He has improved clinically. Will begin converting to oral medications with continued optimization of therapy with hopeful plans to discharge within 24-48 hours 11/07/16: Patient appears to be fairly well compensated at this time. Blood pressures are improved. We will continue to optimize therapy today and plan on discharge tomorrow because he has no one who can stay with him this evening. Tomorrow he will have someone 04/10 and I feel that this is the safest option. Current Visit: Yes Qualifiers: Congestive heart failure type: diastolic Congestive heart failure chronicity: acute on chronic Qualified Code(s): I50.33 - Acute on chronic diastolic (congestive) heart failure (2) Hypertension Status: Chronic Assessment and plan: Blood pressures are uncontrolled at this time. Will optimize therapy for blood pressure control prior to discharge. 11/07/16: Continuing to optimize control while here. As noted above we will plan discharge in the a.m. Current Visit: No Qualifiers: Hypertension type: essential hypertension Qualified Code(s): I10 - Essential (primary) hypertension (3) Diabetes mellitus Status: Chronic Assessment and plan: Continuing home regimen with Accu-Cheks and sliding scale insulin. 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 Avoid any nephrotoxic injury or insults. 11/07/16: Creatinine was 2.0 and stable. Current Visit: Yes Qualifiers: Chronic kidney disease stage: stage 3 (moderate) Qualified Code(s): N18.3 - Chronic kidney disease, stage 3 (moderate) (5) Anemia Status: Chronic Assessment and plan: Stable without any evidence of bleeding. Current Visit: No Hospitalist: Subjective Interval history: Mr. Storm is doing well today. He denies any chest pain or shortness of breath. He does not have any one at home with him this evening however he has someone coming from out of town who will be available 24 hours a day tomorrow. Exam - Constitutional Vitals: Period Temp Pulse Resp BP Sys/Hackett Pulse Ox Last 24 Hr 97.5 F-98.4 F 66-81 16-20 132-198/60-83 93-99 General appearance: no acute distress - Head Head exam: Present: normocephalic, atraumatic - Eye Eye exam: Present: EOMI Pupils: Present: DOC - ENT ENT exam: Present: normal exam - Neck Neck exam: Present: normal inspection - Respiratory Respiratory exam: Present: clear to auscultation bilaterally - Cardiovascular Cardiovascular exam: Present: regular rate and rhythm - GI/Abdominal GI/Abdominal exam: Present: normal bowel sounds, soft. Absent: tenderness, rebound - Extremities Exam Extremities exam: Absent: calf tenderness, edema - Back Exam Back exam: Present: normal inspection - Neurological Exam Neurological exam: Present: alert, oriented X3, CN II-XII intact. Absent: motor sensory deficit - Psychiatric Psychiatric exam: Present: normal affect, normal mood. Absent: agitated, anxious - Skin Skin exam: Present: warm, dry. Absent: erythema, rash Results - Labs CBC & BMP: 11/06/16 03:45 11/06/16 03:45 Lab Results: I have reviewed the past 24 hour labs
[2016-11-07] MEDS: MAGNESIUM CHLORIDE 64 MG TABLET PO SCH ×2 (10:14→21:31)
[2016-11-07] MEDS: FERROUS SULFATE 325 MG TABLET PO SCH ×2 (10:14→21:32)
[2016-11-07] MEDS: SUCRALFATE 1 GM TABLET PO SCH ×3 (10:14→16:21)
[2016-11-07] MEDS: BENZONATATE 100 MG CAPSULE PO SCH ×3 (10:15→21:31)
[2016-11-07] MEDS: ESCITALOPRAM 10 MG TABLET PO SCH (10:15)
[2016-11-07] MEDS: sitaGLIPtin 25 MG TABLET PO SCH (10:16)
[2016-11-07] MEDS: ASPIRIN EC 81 MG TABLET PO SCH (10:16)
[2016-11-07] MEDS: FUROSEMIDE 40 MG TABLET PO SCH (10:16)
[2016-11-07] MEDS: CYANOCOBALAMIN 500 MCG TABLET PO SCH (10:17)
[2016-11-07] MEDS: PANTOPRAZOLE 40 MG TABLET PO SCH ×2 (10:18→21:31)
[2016-11-07] MEDS: AMIODARONE 200 MG TABLET PO SCH (10:18)
[2016-11-07] MEDS: POTASSIUM CHLORIDE 20 MEQ TABLET PO SCH (10:18)
[2016-11-07] MEDS: TAMSULOSIN 0.4 MG CAPSULE PO SCH (10:18)
[2016-11-07] MEDS: CARVEDILOL 3.125 MG TABLET PO SCH ×2 (10:19→21:31)
[2016-11-07] MEDS: FEXOFENADINE 180 MG TABLET PO SCH (10:19)
[2016-11-07] MEDS: NIACIN ER 500 MG TABLET PO SCH (10:20)
[2016-11-07] MEDS: APIXABAN 5 MG TABLET PO SCH ×2 (10:20→21:31)
[2016-11-07] MEDS: INSULIN ASPART PROTAMINE/ASPART 70/30 100 UNIT/ML SUBCUT SCH ×2 (10:21→16:21)
[2016-11-07] MEDS: CLOTRIMAZOLE 1% CREAM 15 GM TUBE TOP SCH ×2 (10:30→21:43)
--- NOTE | 2016-11-07 13:00 | Cardiology Progress Note ---
Assessment and Plan (1) Hypertension Status: Acute Assessment and plan: I think this is the etiology of his heart failure with preserved ejection fraction he has diastolic dysfunction and hypertension has precipitated diastolic heart failure. This is getting significantly better. 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 Storm has no complaints today and is actually requesting discharge. He looks significantly better he is sitting in a chair his blood pressure has come down. He does not have labs from today. I talked him about the etiology of his heart failure and I feel that his diastolic dysfunction from his severely uncontrolled blood pressure. He denies any chest pain his cough is better he is requesting discharge. Exam (Progress Note) - Constitutional Vitals: Period Temp Pulse Resp BP Sys/Hackett Pulse Ox Last 24 Hr 97.8 F-98.4 F 66-86 16-20 132-198/60-83 93-99 General appearance: morbidly obese - Eye Eye exam: Present: EOMI Pupils: Present: DOC - Respiratory Respiratory exam: Present: clear to auscultation bilaterally (No rhonchi today) - Cardiovascular Cardiovascular exam: Present: irregular rhythm (He seems to be intermittently paced with sinus rhythm. Telemetry was reviewed.) - GI/Abdominal GI/Abdominal exam: Present: normal bowel sounds - Extremities Exam Extremities exam: Present: other (Foot drop). Absent: edema - Neurological Exam Neurological exam: Present: alert, oriented X3 - Psychiatric Psychiatric exam: Present: normal affect, depressed - Skin Skin exam: Present: normal color, warm, dry Result/EKG - Labs CBC & BMP: 11/06/16 03:45 11/06/16 03:45 Labs: Laboratory Results - last 24 hr 11/06/16 11/06/16 11/07/16 15:50 22:09 07:19 POC Glucose 154 H 133 H 99 11/07/16 11:31 POC Glucose 153 H
[2016-11-07] MEDS ORDERED: DEXTROMETHORPHAN ER 6 MG/ML 90 ML/BOTTLE PO PRN (16:31)
[2016-11-07] MEDS: HYDROcodone/CHLORPHENIRAMINE ER 5 ML UDCUP PO PRN (19:47)
[2016-11-07] MEDS: ATORVASTATIN 10 MG TABLET PO SCH (21:31)
[2016-11-08] MEDS: ALBUTEROL 0.63 MG/3 ML NEB RESP TX SCH ×2 (00:53→07:02)
[2016-11-08] MEDS: LEVOTHYROXINE 100 MCG TABLET PO SCH (06:17)
--- NOTE | 2016-11-08 07:52 | Discharge Summary ---
Hospital Course - Hospital Course Hospital Course: Mr. Storm is a 76-year-old male presenting to the emergency department with shortness of breath. Patient was evaluated in the emergency department noted to be grossly edematous in his lower extremities and chest x-ray revealed some interstitial prominence likely secondary to mild CHF. Patient was admitted and diuresed. Cardiology was consulted as well. Patient has a chronic anemia which was stable throughout his stay. He also is diabetic was placed on his routine home meds as well as Accu-Cheks with sliding scale coverage. Echocardiogram noted Left ventricular ejection fraction is estimated at 55 %. Moderate left ventricular hypertrophy. Diastolic dysfunction is equivocal. Tricuspid regurgitation velocities suggest a RVSP of 44 mmHg. He improved clinically but was noted to be hypertensive which was not optimally controlled during his stay. His medical regimen was adjusted and he improved with good control his blood pressure. He was oxygenating well on room air. He had no chest pains or complaints of shortness of breath and desired to be discharged. He has reached maximal benefit from hospital stay and can be discharged home with outpatient follow-up at this time. - Time spent with patient Time with patient DS: Less than 30 minutes Diagnosis - Discharge Diagnosis (1) CHF (congestive heart failure) Status: Acute (2) Hypertension Status: Chronic (3) Diabetes mellitus Status: Chronic (4) Chronic kidney disease Status: Chronic (5) Anemia Status: Chronic Discharge Plan - Discharge Data Disposition: Disch To Home/Self Care Condition at Discharge: Stable Discharge Diet: diabetic diet Activity: resume usual activities as tolerated Contact your physician if you experience:: fever over 101, Redness or swelling, Nausea/Vomiting, Shortness of breath - Discharge Medications New Carvedilol [Coreg] 3.125 mg PO BID #60 tablet Dextromethorphan ER Liquid [Delsym] 60 mg PO Q6H PRN #240 bottle PRN Reason: Cough Furosemide Tab [Lasix Tab] 40 mg PO DAILY #30 tablet Benzonatate [Tessalon] 100 mg PO TID #30 capsule hydrALAZINE TAB [Apresoline Tab] 100 mg PO TID #90 tablet Continue Levothyroxine Tab [Synthroid Tab] 100 mcg PO DAILY Sucralfate Tab [Carafate Tab] 1 gm PO TID W/MEALS tablet Atorvastatin [Lipitor] 10 mg PO BEDTIME Escitalopram [Lexapro] 20 mg PO DAILY Ferrous Sulfate 325 mg PO BID Magnesium Chloride [Slow Mag] 64 mg PO BID Tamsulosin [Flomax] 0.4 mg PO DAILY Insulin Aspart Prot/Insuln Asp [NovoLOG Mix 70-30 FlexPen] 45 unit SUBCUT AC BREAKFAST Apixaban [Eliquis] 5 mg PO BID #60 tablet Zolpidem Tartrate [Ambien] 10 mg PO BEDTIME PRN PRN Reason: Sleep Omeprazole [Prilosec] 40 mg PO BID Fexofenadine HCl 180 mg PO DAILY Potassium Chloride 20 meq PO DAILY Cyanocobalamin Tab [Vitamin B12 Tab] 500 mcg PO DAILY Niacin [Slo-Niacin] 500 mg PO DAILY Insulin Aspart Prot/Asp 70/30 [NovoLOG Mix 70/30] 35 unit SUBCUT AC SUPPER Aspirin EC Tab 81 mg PO DAILY Amiodarone Tab [Cordarone Tab] 200 mg PO DAILY Saxagliptin HCl [Onglyza] 2.5 mg PO DAILY Clotrimazole 1% Cream [Lotrimin 1% Cream] 1 applic TOP BID Discontinued Furosemide Tab [Lasix Tab] 20 mg PO DAILY hydrALAZINE TAB [Apresoline Tab] 25 mg PO TID Metoprolol Tartrate Tab [Lopressor Tab] 25 mg PO BID - Follow Up or Referral Follow Up: Danny Gil DO [Physician] - 5 Days Emmanuel Chatterjee MD [Physician] - 2 Weeks - Forms/Instructions Exam - Constitutional Vitals: Period Temp Pulse Resp BP Sys/Hackett Pulse Ox Last 24 Hr 97.7 F-98.4 F 52-86 16-20 139-198/67-94 93-99 General appearance: no acute distress - Head Head exam: Present: normocephalic, atraumatic - Eye Eye exam: Present: EOMI Pupils: Present: DOC - ENT ENT exam: Present: normal exam - Neck Neck exam: Present: normal inspection - Respiratory Respiratory exam: Present: clear to auscultation bilaterally. Absent: rales, rhonchi, wheezes - Cardiovascular Cardiovascular exam: Present: irregular rhythm - GI/Abdominal GI/Abdominal exam: Present: normal bowel sounds, soft. Absent: mass, tenderness , rebound - Extremities Exam Extremities exam: Absent: calf tenderness, edema - Neurological Exam Neurological exam: Present: alert, oriented X3, CN II-XII intact. Absent: motor sensory deficit - Psychiatric Psychiatric exam: Present: normal affect, normal mood. Absent: agitated, anxious - Skin Skin exam: Present: warm, dry. Absent: erythema Discharge Results Labs on day of discharge: Labs from last 24 hours 11/07/16 11/07/16 11/07/16 15:35 11:31 07:19 POC Glucose 93 153 H 99 DS: Provider Date of admission: 11/04/16 17:45 Primary care physician: . No PCP Garo Gil MD Attending physician on admission: Rodrick Sales MD Consults: 11/05/16 10:43 Consult to Occupational Therapy [CONS] Routine Reason for Occupational Therapy: Evaluate and Treat PT [Consult to Physical Therapy] [CONS] Routine Reason for Physical Therapy: Evaluate and Treat 11/05/16 12:13 Consult to Physician [CONS] Routine Comment: chf Consulting Provider: Venus Ross Discharging clinician: Low Nam Expected date of discharge: 11/08/16
[2016-11-08 08:23] VITALS: BP 131/58
[2016-11-08] MEDS: INSULIN ASPART PROTAMINE/ASPART 70/30 100 UNIT/ML SUBCUT SCH (09:13)
[2016-11-08] MEDS: NIACIN ER 500 MG TABLET PO SCH (09:14)
[2016-11-08] MEDS: POTASSIUM CHLORIDE 20 MEQ TABLET PO SCH (09:14)
[2016-11-08] MEDS: SUCRALFATE 1 GM TABLET PO SCH (09:14)
[2016-11-08] MEDS: FERROUS SULFATE 325 MG TABLET PO SCH (09:15)
[2016-11-08] MEDS: CYANOCOBALAMIN 500 MCG TABLET PO SCH (09:15)
[2016-11-08] MEDS: FEXOFENADINE 180 MG TABLET PO SCH (09:15)
[2016-11-08] MEDS: TAMSULOSIN 0.4 MG CAPSULE PO SCH (09:16)
[2016-11-08] MEDS: CARVEDILOL 3.125 MG TABLET PO SCH (09:16)
[2016-11-08] MEDS: PANTOPRAZOLE 40 MG TABLET PO SCH (09:16)
[2016-11-08] MEDS: sitaGLIPtin 25 MG TABLET PO SCH (09:16)
[2016-11-08] MEDS: AMIODARONE 200 MG TABLET PO SCH (09:16)
[2016-11-08] MEDS: ESCITALOPRAM 10 MG TABLET PO SCH (09:16)
[2016-11-08] MEDS: APIXABAN 5 MG TABLET PO SCH (09:16)
[2016-11-08] MEDS: ASPIRIN EC 81 MG TABLET PO SCH (09:16)
[2016-11-08] MEDS: FUROSEMIDE 40 MG TABLET PO SCH (09:17)
[2016-11-08] MEDS: MAGNESIUM CHLORIDE 64 MG TABLET PO SCH (09:17)
[2016-11-08] MEDS: BENZONATATE 100 MG CAPSULE PO SCH (09:17)
[2016-11-08] MEDS: CLOTRIMAZOLE 1% CREAM 15 GM TUBE TOP SCH (12:25)
== END 2016-11-08 13:29 | disposition home or self-care (01) | DRG 291 ==
LOC: N.ED 13:05 → SUATTDRO 17:45 → N.EDINP 17:46 → N.TELEN 18:24
PROVIDERS: ADMIT Internal Medicine; ATTEND Internal Medicine

== ENCOUNTER 2017-01-27 13:45 | Inpatient (IN) ==
[2017-01-27] MEDS ORDERED: FUROSEMIDE 40 MG/4 ML VIAL IV STA (14:23)
[2017-01-27 14:49] LABS: Basophils # 0.1 10*3/uL (0.0-0.2); Basophils % 0.6 % (0.0-0.8); Eosinophils # 0.5 10*3/uL (0.0-0.87); Eosinophils % 5.5 % (0.00-10.9); Hematocrit 32.2 VOL% (42.0-52.0); Hemoglobin 10.6 GM/DL (14.0-18.0); Immature Granulocytes % 1.2 %; Immature Granulocytes Absolute 0.11 #; Lymphocytes # 1.3 10*3/uL (1.4-4.0); Lymphocytes % 13.8 % (21.2-54.2); Mean Corpuscular HGB Conc 32.9 GM/DL (32-36); Mean Corpuscular Hemoglobin 29 PG (27-34); Mean Corpuscular Volume 88.7 FL (87-102); Mean Platelet Volume 11.1 FL (9.6-12.0); Monocytes % 10.2 % (1.7-12.7); Neutrophils # 6.6 10*3/uL (1.4-7.4); Neutrophils % 68.7 % (38.7-73.9); Platelet Count 152 T/CUMM (130-400); Red Blood Count 3.63 MC/CUMM (3.8-5.5); Red Cell Distribution Width 14.3 % (9.3-17.3); White Blood Count 9.5 T/CUMM (4-12)
[2017-01-27] MEDS ORDERED: FUROSEMIDE 100 MG/10 ML VIAL ONE (15:05)
[2017-01-27 15:51] LABS: Albumin 3.2 G/DL (3.4-5.0); Bilirubin,Total 0.5 MG/DL (0.2-1.0); Osmolality,Calculated 278.1 MOS/KG (273-304); Total Protein 7.1 G/DL (6.4-8.3)
[2017-01-27 16:19] LABS: Apearance,Urine CLOUDY (Clear); Bilirubin,Urine Negative (Negative); Blood, Urine Large mg/dL (Negative); Glucose,Urine (UA) 150 mg/dL (Negative); Ketones,Urine Negative (Negative); Nitrite,Urine Negative (Negative); Protein,Urine 100 MG/DL; RBC,Urine 5 /HPF (0-4); Squamous Epithelial Cell,Urine Occasional /HPF (0-10); Urine Color Yellow (Yellow); Urine Urobilinogen < 2.0 EU/DL (0.2-1.0); WBC,Urine 286 /HPF (0-6)
[2017-01-27] MEDS ORDERED: cefTRIAXone 250 MG VIAL IV STA (16:22)
[2017-01-27] MEDS ORDERED: cefTRIAXone 1,000 MG VIAL ONE (16:25)
[2017-01-27] MEDS ORDERED: GLUCAGON 1 MG VIAL IM PRN (21:04)
[2017-01-27] MEDS ORDERED: ACETAMINOPHEN 325 MG TABLET PO PRN (21:04)
[2017-01-27] MEDS ORDERED: DEXTROSE 50% 25 GM/50 ML VIAL IV PRN (21:04)
[2017-01-28] MEDS: cefTRIAXone 1,000 MG in SYRINGE 1 EACH IV SCH ×3 (01:05→21:44)
[2017-01-28] MEDS: CARVEDILOL 3.125 MG TABLET PO SCH ×3 (01:12→21:44)
[2017-01-28] MEDS: APIXABAN 5 MG TABLET PO SCH ×3 (01:12→21:44)
[2017-01-28] MEDS: DOCUSATE SODIUM 100 MG CAPSULE PO SCH ×3 (01:12→21:44)
[2017-01-28] MEDS: INSULIN LISPRO 100 UNIT/ML SUBCUT SCH ×4 (01:13→17:05)
[2017-01-28] MEDS: MAGNESIUM CHLORIDE 64 MG TABLET PO SCH ×3 (01:13→21:44)
[2017-01-28] MEDS: FERROUS SULFATE 325 MG TABLET PO SCH ×3 (01:13→21:44)
[2017-01-28] MEDS: ATORVASTATIN 10 MG TABLET PO SCH ×2 (01:13→21:44)
[2017-01-28] MEDS: LEVOTHYROXINE 100 MCG TABLET PO SCH (06:31)
[2017-01-28] MEDS ORDERED: FUROSEMIDE 40 MG/4 ML VIAL IV SCH (08:00)
[2017-01-28 08:57] LABS: Calcium 8.2 MG/DL (8.5-10.1); Free T4 (Free Thyroxine) 1.38 NG/DL (0.76-1.46); Magnesium 1.8 MG/DL (1.8-2.4); Osmolality,Calculated 288.7 MOS/KG (273-304); Potassium 4.4 MMOL/L (3.5-5.1); Thyroid Stimulating Hormone 2.41 uIU/ml (0.358-3.74)
[2017-01-28] MEDS: POTASSIUM CHLORIDE 20 MEQ TABLET PO SCH (09:32)
[2017-01-28] MEDS: ESCITALOPRAM 10 MG TABLET PO SCH (09:33)
[2017-01-28] MEDS: sitaGLIPtin 100 MG TABLET PO SCH (09:33)
[2017-01-28] MEDS: CYANOCOBALAMIN 500 MCG TABLET PO SCH (09:33)
[2017-01-28] MEDS: SUCRALFATE 1 GM TABLET PO SCH ×3 (09:33→17:05)
[2017-01-28] MEDS: NIACIN ER 500 MG TABLET PO SCH (09:33)
[2017-01-28] MEDS: FEXOFENADINE 180 MG TABLET PO SCH (09:33)
[2017-01-28] MEDS: TAMSULOSIN 0.4 MG CAPSULE PO SCH (09:34)
[2017-01-28] MEDS: PANTOPRAZOLE 40 MG TABLET PO SCH (09:34)
[2017-01-28] MEDS: ASPIRIN EC 81 MG TABLET PO SCH (09:34)
[2017-01-28] MEDS ORDERED: FUROSEMIDE 20 MG/2 ML VIAL IV SCH (16:00)
[2017-01-29] MEDS: INSULIN LISPRO 100 UNIT/ML SUBCUT SCH ×4 (01:54→17:29)
[2017-01-29 05:55] LABS: Basophils # 0.1 10*3/uL (0.0-0.2); Basophils % 0.8 % (0.0-0.8); Eosinophils # 0.4 10*3/uL (0.0-0.87); Eosinophils % 5.3 % (0.00-10.9); Hematocrit 29.8 VOL% (42.0-52.0); Hemoglobin 9.8 GM/DL (14.0-18.0); Immature Granulocytes Absolute 0.08 #; Lymphocytes % 12.4 % (21.2-54.2); Mean Corpuscular HGB Conc 32.9 GM/DL (32-36); Mean Corpuscular Hemoglobin 29 PG (27-34); Mean Corpuscular Volume 88.7 FL (87-102); Mean Platelet Volume 10.7 FL (9.6-12.0); Monocytes # 0.9 10*3/uL (0.11-0.8); Monocytes % 10.9 % (1.7-12.7); Neutrophils # 5.8 10*3/uL (1.4-7.4); Neutrophils % 69.6 % (38.7-73.9); Platelet Count 179 T/CUMM (130-400); Red Blood Count 3.36 MC/CUMM (3.8-5.5); Red Cell Distribution Width 14.2 % (9.3-17.3); White Blood Count 8.4 T/CUMM (4-12)
[2017-01-29 06:27] LABS: Calcium 8.2 MG/DL (8.5-10.1); Potassium 4.8 MMOL/L (3.5-5.1)
[2017-01-29] MEDS: LEVOTHYROXINE 100 MCG TABLET PO SCH (06:28)
[2017-01-29] MEDS: cefTRIAXone 1,000 MG in SYRINGE 1 EACH IV SCH ×2 (09:41→22:26)
[2017-01-29] MEDS: SUCRALFATE 1 GM TABLET PO SCH ×3 (09:42→17:29)
[2017-01-29] MEDS: TAMSULOSIN 0.4 MG CAPSULE PO SCH (09:42)
[2017-01-29] MEDS: MAGNESIUM CHLORIDE 64 MG TABLET PO SCH ×2 (09:42→22:26)
[2017-01-29] MEDS: PANTOPRAZOLE 40 MG TABLET PO SCH (09:42)
[2017-01-29] MEDS: APIXABAN 5 MG TABLET PO SCH ×2 (09:42→22:26)
[2017-01-29] MEDS: FERROUS SULFATE 325 MG TABLET PO SCH ×2 (09:42→22:26)
[2017-01-29] MEDS: FEXOFENADINE 180 MG TABLET PO SCH (09:42)
[2017-01-29] MEDS: NIACIN ER 500 MG TABLET PO SCH (09:43)
[2017-01-29] MEDS: CYANOCOBALAMIN 500 MCG TABLET PO SCH (09:43)
[2017-01-29] MEDS: POTASSIUM CHLORIDE 20 MEQ TABLET PO SCH (09:43)
[2017-01-29] MEDS: ESCITALOPRAM 10 MG TABLET PO SCH (09:43)
[2017-01-29] MEDS: ASPIRIN EC 81 MG TABLET PO SCH (09:43)
[2017-01-29] MEDS: sitaGLIPtin 100 MG TABLET PO SCH (09:43)
[2017-01-29] MEDS: DOCUSATE SODIUM 100 MG CAPSULE PO SCH ×2 (09:43→22:25)
[2017-01-29] MEDS: CARVEDILOL 3.125 MG TABLET PO SCH ×2 (09:48→22:26)
[2017-01-29] MEDS: DEXTROSE 5% NACL 0.45% 1,000 ML IV SCH (13:27)
[2017-01-29] MEDS: ONDANSETRON 4 MG/2 ML VIAL IV PRN (19:01)
[2017-01-29] MEDS: ATORVASTATIN 10 MG TABLET PO SCH (22:26)
[2017-01-30] MEDS: INSULIN LISPRO 100 UNIT/ML SUBCUT SCH ×4 (01:24→18:34)
[2017-01-30] MEDS: LEVOTHYROXINE 100 MCG TABLET PO SCH (06:31)
[2017-01-30 09:15] LABS: Basophils # 0.1 10*3/uL (0.0-0.2); Eosinophils # 0.6 10*3/uL (0.0-0.87); Hematocrit 28.7 VOL% (42.0-52.0); Hemoglobin 9.4 GM/DL (14.0-18.0); Immature Granulocytes % 1.1 %; Immature Granulocytes Absolute 0.07 #; Lymphocytes # 1.2 10*3/uL (1.4-4.0); Lymphocytes % 19.8 % (21.2-54.2); Mean Corpuscular HGB Conc 32.8 GM/DL (32-36); Mean Corpuscular Hemoglobin 29 PG (27-34); Mean Platelet Volume 10.7 FL (9.6-12.0); Monocytes # 0.7 10*3/uL (0.11-0.8); Monocytes % 11.6 % (1.7-12.7); Neutrophils # 3.5 10*3/uL (1.4-7.4); Neutrophils % 56.5 % (38.7-73.9); Platelet Count 183 T/CUMM (130-400); Red Blood Count 3.26 MC/CUMM (3.8-5.5); Red Cell Distribution Width 14.2 % (9.3-17.3); White Blood Count 6.3 T/CUMM (4-12)
[2017-01-30] MEDS: FERROUS SULFATE 325 MG TABLET PO SCH ×2 (09:44→22:35)
[2017-01-30] MEDS: DOCUSATE SODIUM 100 MG CAPSULE PO SCH ×2 (09:44→22:35)
[2017-01-30] MEDS: TAMSULOSIN 0.4 MG CAPSULE PO SCH (09:44)
[2017-01-30] MEDS: MAGNESIUM CHLORIDE 64 MG TABLET PO SCH ×2 (09:44→22:34)
[2017-01-30] MEDS: SUCRALFATE 1 GM TABLET PO SCH ×3 (09:44→16:39)
[2017-01-30] MEDS: APIXABAN 5 MG TABLET PO SCH ×2 (09:44→22:35)
[2017-01-30] MEDS: sitaGLIPtin 100 MG TABLET PO SCH (09:44)
[2017-01-30] MEDS: CARVEDILOL 3.125 MG TABLET PO SCH ×2 (09:45→22:35)
[2017-01-30] MEDS: NIACIN ER 500 MG TABLET PO SCH (09:45)
[2017-01-30] MEDS: ASPIRIN EC 81 MG TABLET PO SCH (09:45)
[2017-01-30] MEDS: POTASSIUM CHLORIDE 20 MEQ TABLET PO SCH (09:45)
[2017-01-30] MEDS: ESCITALOPRAM 10 MG TABLET PO SCH (09:45)
[2017-01-30] MEDS: FEXOFENADINE 180 MG TABLET PO SCH (09:45)
[2017-01-30] MEDS: cefTRIAXone 1,000 MG in SYRINGE 1 EACH IV SCH ×2 (09:46→22:40)
[2017-01-30] MEDS: CYANOCOBALAMIN 500 MCG TABLET PO SCH (09:46)
[2017-01-30] MEDS: PANTOPRAZOLE 40 MG TABLET PO SCH (09:46)
[2017-01-30 09:50] LABS: Calcium 7.9 MG/DL (8.5-10.1); Magnesium 2.1 MG/DL (1.8-2.4); Potassium 4.5 MMOL/L (3.5-5.1)
[2017-01-30] MEDS: DEXTROSE 5% NACL 0.45% 1,000 ML IV SCH ×2 (22:35→22:36)
[2017-01-30] MEDS: ATORVASTATIN 10 MG TABLET PO SCH (22:35)
[2017-01-30] MEDS: ONDANSETRON 4 MG/2 ML VIAL IV PRN (22:39)
[2017-01-31] MEDS: INSULIN LISPRO 100 UNIT/ML SUBCUT SCH ×3 (01:56→12:23)
[2017-01-31 05:17] LABS: Basophils # 0.1 10*3/uL (0.0-0.2); Basophils % 0.8 % (0.0-0.8); Eosinophils # 0.7 10*3/uL (0.0-0.87); Eosinophils % 9.6 % (0.00-10.9); Hematocrit 27.7 VOL% (42.0-52.0); Immature Granulocytes % 1.1 %; Immature Granulocytes Absolute 0.08 #; Lymphocytes # 1.3 10*3/uL (1.4-4.0); Lymphocytes % 17.8 % (21.2-54.2); Mean Corpuscular HGB Conc 32.5 GM/DL (32-36); Mean Corpuscular Hemoglobin 29 PG (27-34); Mean Corpuscular Volume 88.8 FL (87-102); Monocytes # 0.8 10*3/uL (0.11-0.8); Monocytes % 11.5 % (1.7-12.7); Neutrophils # 4.3 10*3/uL (1.4-7.4); Neutrophils % 59.2 % (38.7-73.9); Platelet Count 179 T/CUMM (130-400); Red Blood Count 3.12 MC/CUMM (3.8-5.5); Red Cell Distribution Width 14.2 % (9.3-17.3); White Blood Count 7.3 T/CUMM (4-12)
[2017-01-31 05:48] LABS: Osmolality,Calculated 292.8 MOS/KG (273-304); Potassium 5.2 MMOL/L (3.5-5.1)
[2017-01-31] MEDS: LEVOTHYROXINE 100 MCG TABLET PO SCH (06:18)
[2017-01-31] MEDS: CYANOCOBALAMIN 500 MCG TABLET PO SCH (08:44)
[2017-01-31] MEDS: POTASSIUM CHLORIDE 20 MEQ TABLET PO SCH (08:44)
[2017-01-31] MEDS: FERROUS SULFATE 325 MG TABLET PO SCH (08:44)
[2017-01-31] MEDS: SUCRALFATE 1 GM TABLET PO SCH (08:45)
[2017-01-31] MEDS: FEXOFENADINE 180 MG TABLET PO SCH (08:45)
[2017-01-31] MEDS: ESCITALOPRAM 10 MG TABLET PO SCH (08:45)
[2017-01-31] MEDS: APIXABAN 5 MG TABLET PO SCH (08:45)
[2017-01-31] MEDS: PANTOPRAZOLE 40 MG TABLET PO SCH (08:46)
[2017-01-31] MEDS: MAGNESIUM CHLORIDE 64 MG TABLET PO SCH (08:46)
[2017-01-31] MEDS: TAMSULOSIN 0.4 MG CAPSULE PO SCH (08:46)
[2017-01-31] MEDS: ASPIRIN EC 81 MG TABLET PO SCH (08:46)
[2017-01-31] MEDS: DOCUSATE SODIUM 100 MG CAPSULE PO SCH (08:47)
[2017-01-31] MEDS: NIACIN ER 500 MG TABLET PO SCH (08:47)
[2017-01-31] MEDS: CARVEDILOL 3.125 MG TABLET PO SCH (08:47)
[2017-01-31] MEDS: sitaGLIPtin 100 MG TABLET PO SCH (08:47)
[2017-01-31 12:18] VITALS: BP 150/52
== END 2017-01-31 12:45 | disposition home health service (06) | DRG 291 ==
LOC: N.ED 13:45 → N.EDINP 19:42 → N.TELEN 20:05
PROVIDERS: ADMIT Hospitalist; ATTEND Hospitalist

== ENCOUNTER 2017-04-06 16:05 | Inpatient (IN) ==
[2017-04-06 16:48] LABS: Basophils # 0.1 10*3/uL (0.0-0.2); Basophils % 0.8 % (0.0-0.8); Eosinophils # 0.4 10*3/uL (0.0-0.87); Eosinophils % 4.5 % (0.00-10.9); Hematocrit 34.3 VOL% (42.0-52.0); Immature Granulocytes % 1.1 %; Lymphocytes # 1.1 10*3/uL (1.4-4.0); Mean Corpuscular HGB Conc 32.1 GM/DL (32-36); Mean Corpuscular Hemoglobin 29 PG (27-34); Mean Corpuscular Volume 91.5 FL (87-102); Mean Platelet Volume 11.1 FL (9.6-12.0); Monocytes # 0.7 10*3/uL (0.11-0.8); Monocytes % 8.2 % (1.7-12.7); Neutrophils # 6.6 10*3/uL (1.4-7.4); Neutrophils % 73.4 % (38.7-73.9); Platelet Count 186 T/CUMM (130-400); Red Blood Count 3.75 MC/CUMM (3.8-5.5); Red Cell Distribution Width 14.7 % (9.3-17.3)
[2017-04-06 16:56] LABS: PT Patient Result 10.8 SECS
[2017-04-06 17:21] LABS: Alanine Aminotransferase 18 U/L (16-61); Alkaline Phosphatase 86 U/L (45-117); Aspartate Amino Transferase 17 U/L (0-37); Blood Urea Nitrogen 38 MG/DL (7-18); Calcium 8.1 MG/DL (8.5-10.1); Glucose 200 MG/DL (74-106); Osmolality,Calculated 287.8 MOS/KG (273-304); Potassium 5.8 MMOL/L (3.5-5.1); Sodium 137 MMOL/L (136-145)
[2017-04-06 17:23] LABS: Troponin I Only 0.055 NG/ML (0.00-0.045)
[2017-04-06] MEDS ORDERED: DEXTROSE 50% 25 GM/50 ML VIAL IV PRN (18:53)
[2017-04-06] MEDS ORDERED: GLUCAGON 1 MG VIAL IM PRN (18:53)
[2017-04-06] MEDS ORDERED: SODIUM POLYSTYRENE SULFATE 15 GM/60 ML BOTTLE PO STA (20:57)
[2017-04-06] MEDS ORDERED: SODIUM CHLORIDE 0.9% 1,000 ML IV SCH (20:57)
[2017-04-06] MEDS ORDERED: ENOXAPARIN 30 MG/0.3 ML SYRINGE SUBCUT SCH (21:00)
[2017-04-06] MEDS: DOCUSATE SODIUM 100 MG CAPSULE PO SCH (22:47)
[2017-04-06] MEDS: FERROUS SULFATE 325 MG TABLET PO SCH (22:47)
[2017-04-06] MEDS: APIXABAN 5 MG TABLET PO SCH (22:47)
[2017-04-06] MEDS: ATORVASTATIN 10 MG TABLET PO SCH (22:47)
[2017-04-06 22:51] LABS: Free T4 (Free Thyroxine) 1.12 NG/DL (0.76-1.46); Troponin I Only 0.046 NG/ML (0.00-0.045)
[2017-04-07 01:02] LABS: Apearance,Urine CLEAR (Clear); Bilirubin,Urine Negative (Negative); Blood, Urine Negative (Negative); Glucose,Urine (UA) Negative (Negative); Ketones,Urine Negative (Negative); Nitrite,Urine Negative (Negative); Protein,Urine 100 MG/DL; RBC,Urine 13 /HPF (0-4); Urine Color Yellow (Yellow); Urine Specific Gravity 1.012 (1.001-1.035); Urine Urobilinogen < 2.0 EU/DL (0.2-1.0); WBC,Urine 1 /HPF (0-6)
[2017-04-07 01:08] LABS: Barbiturates Screen,Urine Negative (Negative); Benzodiazepines Screen,Urine Negative (Negative); Cannabinoid Screen,Urine Negative (Negative); Opiate Screen,Urine Positive (Negative); Phencyclidine Screen,Urine Negative (Negative)
[2017-04-07] MEDS: INSULIN REGULAR 100 UNIT/ML SUBCUT SCH ×4 (01:49→17:51)
[2017-04-07 06:18] LABS: Basophils # 0.1 10*3/uL (0.0-0.2); Basophils % 1.2 % (0.0-0.8); Eosinophils # 0.4 10*3/uL (0.0-0.87); Eosinophils % 5.2 % (0.00-10.9); Hematocrit 31.3 VOL% (42.0-52.0); Hemoglobin 10.2 GM/DL (14.0-18.0); Immature Granulocytes % 1.1 %; Immature Granulocytes Absolute 0.08 #; Lymphocytes # 1.7 10*3/uL (1.4-4.0); Lymphocytes % 23.3 % (21.2-54.2); Mean Corpuscular HGB Conc 32.6 GM/DL (32-36); Mean Corpuscular Hemoglobin 30 PG (27-34); Mean Corpuscular Volume 90.5 FL (87-102); Mean Platelet Volume 10.9 FL (9.6-12.0); Monocytes # 0.7 10*3/uL (0.11-0.8); Monocytes % 9.8 % (1.7-12.7); Neutrophils # 4.3 10*3/uL (1.4-7.4); Neutrophils % 59.4 % (38.7-73.9); Platelet Count 171 T/CUMM (130-400); Red Blood Count 3.46 MC/CUMM (3.8-5.5); Red Cell Distribution Width 14.6 % (9.3-17.3); White Blood Count 7.2 T/CUMM (4-12)
[2017-04-07 06:52] LABS: Albumin 2.8 G/DL (3.4-5.0); Bilirubin,Total 0.5 MG/DL (0.2-1.0); Calcium 8.2 MG/DL (8.5-10.1); Magnesium 2.3 MG/DL (1.8-2.4); Osmolality,Calculated 291.4 MOS/KG (273-304); Potassium 4.5 MMOL/L (3.5-5.1); Total Protein 6.7 G/DL (6.4-8.3)
[2017-04-07] MEDS: NIACIN ER 500 MG TABLET PO SCH (08:56)
[2017-04-07] MEDS: FEXOFENADINE 180 MG TABLET PO SCH (08:56)
[2017-04-07] MEDS: CYANOCOBALAMIN 500 MCG TABLET PO SCH (08:56)
[2017-04-07] MEDS: FERROUS SULFATE 325 MG TABLET PO SCH ×2 (08:56→21:05)
[2017-04-07] MEDS: ASPIRIN EC 81 MG TABLET PO SCH (08:56)
[2017-04-07] MEDS: SUCRALFATE 1 GM TABLET PO SCH ×3 (08:56→17:50)
[2017-04-07] MEDS: ESCITALOPRAM 10 MG TABLET PO SCH (08:56)
[2017-04-07] MEDS: APIXABAN 5 MG TABLET PO SCH ×2 (08:57→21:05)
[2017-04-07] MEDS: DOCUSATE SODIUM 100 MG CAPSULE PO SCH ×2 (08:57→21:05)
[2017-04-07] MEDS ORDERED: LEVOTHYROXINE 100 MCG TABLET PO SCH (09:00)
[2017-04-07] MEDS: METOPROLOL SUCCINATE XL 100 MG TABLET PO SCH (13:50)
[2017-04-07] MEDS ORDERED: SODIUM CHLORIDE 23.4% CONC INJ 38.5 MEQ in STERILE WATER INJ 1,000 ML IV SCH (17:30)
[2017-04-07] MEDS: SODIUM CHLORIDE 0.45% 1,000 ML IV SCH (17:50)
[2017-04-07] MEDS: amLODIPine 5 MG TABLET PO SCH (21:05)
[2017-04-07] MEDS: INSULIN GLARGINE 100 UNIT/ML SUBCUT SCH (21:05)
[2017-04-07] MEDS: ATORVASTATIN 10 MG TABLET PO SCH (21:05)
[2017-04-08] MEDS: INSULIN REGULAR 100 UNIT/ML SUBCUT SCH ×4 (01:01→17:57)
[2017-04-08 05:21] LABS: Basophils # 0.1 10*3/uL (0.0-0.2); Basophils % 1.1 % (0.0-0.8); Eosinophils # 0.5 10*3/uL (0.0-0.87); Eosinophils % 6.2 % (0.00-10.9); Hematocrit 30.4 VOL% (42.0-52.0); Hemoglobin 10.1 GM/DL (14.0-18.0); Immature Granulocytes Absolute 0.08 #; Lymphocytes # 2.3 10*3/uL (1.4-4.0); Lymphocytes % 27.2 % (21.2-54.2); Mean Corpuscular HGB Conc 33.2 GM/DL (32-36); Mean Corpuscular Hemoglobin 30 PG (27-34); Mean Corpuscular Volume 89.1 FL (87-102); Mean Platelet Volume 11.5 FL (9.6-12.0); Monocytes # 0.9 10*3/uL (0.11-0.8); Monocytes % 11.2 % (1.7-12.7); Neutrophils # 4.5 10*3/uL (1.4-7.4); Neutrophils % 53.3 % (38.7-73.9); Platelet Count 186 T/CUMM (130-400); Red Blood Count 3.41 MC/CUMM (3.8-5.5); Red Cell Distribution Width 14.5 % (9.3-17.3); White Blood Count 8.4 T/CUMM (4-12)
[2017-04-08 05:56] LABS: Calcium 8.2 MG/DL (8.5-10.1); Osmolality,Calculated 291.4 MOS/KG (273-304); Potassium 4.4 MMOL/L (3.5-5.1)
[2017-04-08] MEDS: SUCRALFATE 1 GM TABLET PO SCH ×3 (10:35→17:18)
[2017-04-08] MEDS: DOCUSATE SODIUM 100 MG CAPSULE PO SCH ×2 (10:36→22:59)
[2017-04-08] MEDS: FERROUS SULFATE 325 MG TABLET PO SCH ×2 (10:36→22:29)
[2017-04-08] MEDS: ASPIRIN EC 81 MG TABLET PO SCH (10:36)
[2017-04-08] MEDS: FEXOFENADINE 180 MG TABLET PO SCH (10:36)
[2017-04-08] MEDS: APIXABAN 5 MG TABLET PO SCH ×2 (10:36→22:30)
[2017-04-08] MEDS: ESCITALOPRAM 10 MG TABLET PO SCH (10:36)
[2017-04-08] MEDS: METOPROLOL SUCCINATE XL 100 MG TABLET PO SCH (10:37)
[2017-04-08] MEDS: amLODIPine 5 MG TABLET PO SCH ×2 (10:37→22:30)
[2017-04-08] MEDS: LEVOTHYROXINE 125 MCG TABLET PO SCH (10:37)
[2017-04-08] MEDS: CYANOCOBALAMIN 500 MCG TABLET PO SCH (10:37)
[2017-04-08] MEDS: PANTOPRAZOLE 40 MG TABLET PO SCH (10:42)
[2017-04-08] MEDS: NIACIN ER 500 MG TABLET PO SCH (10:42)
[2017-04-08] MEDS: SODIUM CHLORIDE 0.45% 1,000 ML IV SCH (13:21)
[2017-04-08] MEDS: ATORVASTATIN 10 MG TABLET PO SCH (22:29)
[2017-04-08] MEDS: INSULIN GLARGINE 100 UNIT/ML SUBCUT SCH (22:30)
[2017-04-08] MEDS: ZINC OXIDE PASTE 113 GM TUBE TOP SCH (22:30)
[2017-04-09] MEDS: INSULIN REGULAR 100 UNIT/ML SUBCUT SCH ×3 (03:18→12:48)
[2017-04-09 04:47] LABS: Basophils # 0.1 10*3/uL (0.0-0.2); Basophils % 1.1 % (0.0-0.8); Eosinophils # 0.6 10*3/uL (0.0-0.87); Eosinophils % 6.3 % (0.00-10.9); Hematocrit 30.6 VOL% (42.0-52.0); Hemoglobin 10.3 GM/DL (14.0-18.0); Immature Granulocytes % 0.7 %; Immature Granulocytes Absolute 0.07 #; Lymphocytes # 2.3 10*3/uL (1.4-4.0); Lymphocytes % 24.7 % (21.2-54.2); Mean Corpuscular HGB Conc 33.7 GM/DL (32-36); Mean Corpuscular Hemoglobin 30 PG (27-34); Mean Corpuscular Volume 88.2 FL (87-102); Mean Platelet Volume 11.5 FL (9.6-12.0); Monocytes % 10.3 % (1.7-12.7); Neutrophils # 5.4 10*3/uL (1.4-7.4); Neutrophils % 56.9 % (38.7-73.9); Platelet Count 183 T/CUMM (130-400); Red Blood Count 3.47 MC/CUMM (3.8-5.5); Red Cell Distribution Width 14.2 % (9.3-17.3); White Blood Count 9.4 T/CUMM (4-12)
[2017-04-09 05:16] LABS: Calcium 8.2 MG/DL (8.5-10.1); Magnesium 1.8 MG/DL (1.8-2.4); Osmolality,Calculated 287.7 MOS/KG (273-304); Potassium 4.4 MMOL/L (3.5-5.1)
[2017-04-09] MEDS: ASPIRIN EC 81 MG TABLET PO SCH (09:46)
[2017-04-09] MEDS: SUCRALFATE 1 GM TABLET PO SCH ×2 (09:46→12:47)
[2017-04-09] MEDS: APIXABAN 5 MG TABLET PO SCH (09:46)
[2017-04-09] MEDS: FEXOFENADINE 180 MG TABLET PO SCH (09:46)
[2017-04-09] MEDS: ZINC OXIDE PASTE 113 GM TUBE TOP SCH (09:46)
[2017-04-09] MEDS: DOCUSATE SODIUM 100 MG CAPSULE PO SCH (09:46)
[2017-04-09] MEDS: amLODIPine 5 MG TABLET PO SCH (09:47)
[2017-04-09] MEDS: NIACIN ER 500 MG TABLET PO SCH (09:47)
[2017-04-09] MEDS: LEVOTHYROXINE 125 MCG TABLET PO SCH (09:47)
[2017-04-09] MEDS: ESCITALOPRAM 10 MG TABLET PO SCH (09:47)
[2017-04-09] MEDS: PANTOPRAZOLE 40 MG TABLET PO SCH (09:47)
[2017-04-09] MEDS: FERROUS SULFATE 325 MG TABLET PO SCH (09:47)
[2017-04-09] MEDS: METOPROLOL SUCCINATE XL 100 MG TABLET PO SCH (09:48)
[2017-04-09] MEDS: CYANOCOBALAMIN 500 MCG TABLET PO SCH (09:48)
[2017-04-09 12:08] VITALS: BP 156/70
[2017-04-09] MEDS: SODIUM CHLORIDE 0.45% 1,000 ML IV SCH (12:50)
[2017-04-09] MEDS ORDERED: diphenhydrAMINE CAP 25 MG CAPSULE PO ONE (12:51)
== END 2017-04-09 15:33 | disposition home health service (06) | DRG 312 ==
LOC: EDBD → EDUNIT# → N.ED 16:05 → N.EDINP 18:45 → N.TELES 19:55
PROVIDERS: ADMIT Internal Medicine; ATTEND Internal Medicine

== ENCOUNTER 2017-04-19 11:11 | Inpatient (IN) ==
[2017-04-19] MEDS ORDERED: SODIUM CHLORIDE 0.9% 1,000 ML IV STA (11:39)
[2017-04-19] MEDS ORDERED: ONDANSETRON 4 MG/2 ML VIAL IV STA (11:39)
[2017-04-19] MEDS ORDERED: ONDANSETRON 4 MG/2 ML VIAL ONE (12:12)
[2017-04-19 12:29] LABS: Basophils # 0.1 10*3/uL (0.0-0.2); Basophils % 0.9 % (0.0-0.8); Eosinophils # 0.4 10*3/uL (0.0-0.87); Eosinophils % 3.9 % (0.00-10.9); Hematocrit 29.8 VOL% (42.0-52.0); Hemoglobin 10.5 GM/DL (14.0-18.0); Immature Granulocytes % 1.4 %; Immature Granulocytes Absolute 0.15 #; Lymphocytes # 1.3 10*3/uL (1.4-4.0); Mean Corpuscular HGB Conc 35.2 GM/DL (32-36); Mean Corpuscular Hemoglobin 31 PG (27-34); Mean Corpuscular Volume 86.9 FL (87-102); Mean Platelet Volume 11.5 FL (9.6-12.0); Monocytes # 0.9 10*3/uL (0.11-0.8); Monocytes % 8.9 % (1.7-12.7); Neutrophils # 7.6 10*3/uL (1.4-7.4); Neutrophils % 72.9 % (38.7-73.9); Platelet Count 193 T/CUMM (130-400); Red Blood Count 3.43 MC/CUMM (3.8-5.5); Red Cell Distribution Width 14.2 % (9.3-17.3); White Blood Count 10.4 T/CUMM (4-12)
[2017-04-19 12:53] LABS: Bilirubin,Total 0.6 MG/DL (0.2-1.0); Calcium 9.1 MG/DL (8.5-10.1); Osmolality,Calculated 296.7 MOS/KG (273-304); Potassium 4.5 MMOL/L (3.5-5.1); Total Protein 7.2 G/DL (6.4-8.3)
[2017-04-19] MEDS ORDERED: MORPHINE 2 MG/1 ML SYRINGE IV PRN (14:27)
[2017-04-19] MEDS ORDERED: ONDANSETRON 4 MG/2 ML VIAL IV PRN (14:27)
[2017-04-19] MEDS ORDERED: ACETAMINOPHEN 325 MG TABLET PO PRN (14:27)
[2017-04-19] MEDS ORDERED: diphenhydrAMINE CAP 25 MG CAPSULE PO PRN (14:27)
[2017-04-19] MEDS ORDERED: guaiFENesin/DM ER 600-30 MG TABLET PO PRN (14:27)
[2017-04-19] MEDS ORDERED: ENOXAPARIN 30 MG/0.3 ML SYRINGE SUBCUT SCH (14:30)
[2017-04-19] MEDS ORDERED: DICLOFENAC 1% GEL 100 GM TUBE TOP PRN (14:32)
[2017-04-19] MEDS ORDERED: ZINC OXIDE PASTE 113 GM TUBE TOP PRN (14:32)
[2017-04-19] MEDS ORDERED: GLUCAGON 1 MG VIAL IM PRN (14:54)
[2017-04-19] MEDS ORDERED: DEXTROSE 50% 25 GM/50 ML VIAL IV PRN (14:54)
[2017-04-19] MEDS: SODIUM CHLORIDE 0.9% 1,000 ML IV SCH ×2 (17:43→21:37)
[2017-04-19] MEDS: MEMANTINE 10 MG TABLET PO SCH ×2 (17:44→21:33)
[2017-04-19] MEDS: PANTOPRAZOLE 40 MG TABLET PO SCH (17:44)
[2017-04-19] MEDS: INSULIN LISPRO 100 UNIT/ML SUBCUT SCH (17:54)
[2017-04-19] MEDS: APIXABAN 5 MG TABLET PO SCH (17:59)
[2017-04-19] MEDS: ASPIRIN EC 81 MG TABLET PO SCH (21:33)
[2017-04-19] MEDS: ATORVASTATIN 10 MG TABLET PO SCH (21:33)
[2017-04-20] MEDS: LEVOTHYROXINE 100 MCG TABLET PO SCH (06:16)
[2017-04-20] MEDS: SODIUM CHLORIDE 0.9% 1,000 ML IV SCH ×3 (06:17→21:43)
[2017-04-20 06:28] LABS: Basophils # 0.1 10*3/uL (0.0-0.2); Basophils % 0.9 % (0.0-0.8); Eosinophils # 0.6 10*3/uL (0.0-0.87); Eosinophils % 7.3 % (0.00-10.9); Hematocrit 29.5 VOL% (42.0-52.0); Hemoglobin 9.9 GM/DL (14.0-18.0); Immature Granulocytes % 1.1 %; Immature Granulocytes Absolute 0.08 #; Lymphocytes # 1.6 10*3/uL (1.4-4.0); Lymphocytes % 21.4 % (21.2-54.2); Mean Corpuscular HGB Conc 33.6 GM/DL (32-36); Mean Corpuscular Hemoglobin 30 PG (27-34); Mean Corpuscular Volume 89.4 FL (87-102); Mean Platelet Volume 11.5 FL (9.6-12.0); Monocytes # 0.7 10*3/uL (0.11-0.8); Monocytes % 9.9 % (1.7-12.7); Neutrophils # 4.5 10*3/uL (1.4-7.4); Neutrophils % 59.4 % (38.7-73.9); Platelet Count 193 T/CUMM (130-400); Red Cell Distribution Width 14.1 % (9.3-17.3); White Blood Count 7.5 T/CUMM (4-12)
[2017-04-20 06:55] LABS: Calcium 8.5 MG/DL (8.5-10.1); Magnesium 2.3 MG/DL (1.8-2.4); Potassium 4.3 MMOL/L (3.5-5.1)
[2017-04-20] MEDS ORDERED: GLUCAGON 1 MG VIAL IM PRN (08:25)
[2017-04-20] MEDS ORDERED: DEXTROSE 50% 25 GM/50 ML VIAL IV PRN (08:25)
[2017-04-20] MEDS ORDERED: DOCUSATE SODIUM 100 MG CAPSULE PO PRN (08:30)
[2017-04-20] MEDS: ESCITALOPRAM 10 MG TABLET PO SCH (09:32)
[2017-04-20] MEDS: INSULIN LISPRO 100 UNIT/ML SUBCUT SCH ×2 (09:32→16:36)
[2017-04-20] MEDS: CYANOCOBALAMIN 500 MCG TABLET PO SCH (09:33)
[2017-04-20] MEDS: APIXABAN 5 MG TABLET PO SCH ×2 (09:33→20:55)
[2017-04-20] MEDS: MULTIVITAMIN (CENTRUM) TABLET PO SCH (09:33)
[2017-04-20] MEDS: hydrALAZINE 25 MG TABLET PO SCH ×2 (09:33→20:55)
[2017-04-20] MEDS: PANTOPRAZOLE 40 MG TABLET PO SCH (09:33)
[2017-04-20] MEDS: MEMANTINE 10 MG TABLET PO SCH ×2 (09:33→20:55)
[2017-04-20] MEDS: TAMSULOSIN 0.4 MG CAPSULE PO SCH (09:33)
[2017-04-20] MEDS: FERROUS SULFATE 325 MG TABLET PO SCH ×2 (09:33→20:54)
[2017-04-20] MEDS: sitaGLIPtin 100 MG TABLET PO SCH (11:43)
[2017-04-20] MEDS: INSULIN ASPART PROTAMINE/ASPART 70/30 100 UNIT/ML SUBCUT SCH (11:43)
[2017-04-20] MEDS: BACITRACIN OINT 0.9 GM PACK TOP SCH (16:59)
[2017-04-20 18:57] LABS: Apearance,Urine Slightly Hazy (Clear); Bilirubin,Urine Negative (Negative); Blood, Urine Moderate mg/dL (Negative); Glucose,Urine (UA) 50 mg/dL (Negative); Ketones,Urine Negative (Negative); Nitrite,Urine Negative (Negative); Protein,Urine 100 MG/DL; RBC,Urine 201 /HPF (0-4); Squamous Epithelial Cell,Urine Occasional /HPF (0-10); Urine Color Yellow (Yellow); Urine Specific Gravity 1.014 (1.001-1.035); Urine Urobilinogen < 2.0 EU/DL (0.2-1.0); WBC,Urine 1 /HPF (0-6)
[2017-04-20] MEDS ORDERED: INSULIN ASPART PROTAMINE/ASPART 70/30 100 UNIT/ML SUBCUT SCH (19:00)
[2017-04-20] MEDS: ATORVASTATIN 10 MG TABLET PO SCH (20:55)
[2017-04-20] MEDS: ASPIRIN EC 81 MG TABLET PO SCH (20:55)
[2017-04-21] MEDS ORDERED: hydrALAZINE 20 MG/1 ML VIAL IV ONE (04:30)
[2017-04-21] MEDS ORDERED: SODIUM CHLORIDE 0.9% 1,000 ML IV SCH (05:00)
[2017-04-21] MEDS: LEVOTHYROXINE 100 MCG TABLET PO SCH (05:31)
[2017-04-21 06:31] LABS: Basophils # 0.1 10*3/uL (0.0-0.2); Basophils % 1.1 % (0.0-0.8); Eosinophils # 0.6 10*3/uL (0.0-0.87); Eosinophils % 7.6 % (0.00-10.9); Hematocrit 30.7 VOL% (42.0-52.0); Hemoglobin 10.1 GM/DL (14.0-18.0); Immature Granulocytes Absolute 0.16 #; Lymphocytes # 1.8 10*3/uL (1.4-4.0); Lymphocytes % 23.2 % (21.2-54.2); Mean Corpuscular HGB Conc 32.9 GM/DL (32-36); Mean Corpuscular Hemoglobin 30 PG (27-34); Mean Corpuscular Volume 89.8 FL (87-102); Mean Platelet Volume 11.2 FL (9.6-12.0); Monocytes # 0.9 10*3/uL (0.11-0.8); Monocytes % 10.7 % (1.7-12.7); Neutrophils # 4.4 10*3/uL (1.4-7.4); Neutrophils % 55.4 % (38.7-73.9); Platelet Count 184 T/CUMM (130-400); Red Blood Count 3.42 MC/CUMM (3.8-5.5); Red Cell Distribution Width 13.9 % (9.3-17.3); White Blood Count 7.9 T/CUMM (4-12)
[2017-04-21 06:55] LABS: Calcium 8.3 MG/DL (8.5-10.1); Osmolality,Calculated 288.5 MOS/KG (273-304); Potassium 4.3 MMOL/L (3.5-5.1)
[2017-04-21 08:35] VITALS: BP 146/70
[2017-04-21] MEDS ORDERED: hydrALAZINE 25 MG TABLET PO SCH (09:00)
[2017-04-21] MEDS: MULTIVITAMIN (CENTRUM) TABLET PO SCH (09:57)
[2017-04-21] MEDS: TAMSULOSIN 0.4 MG CAPSULE PO SCH (09:57)
[2017-04-21] MEDS: sitaGLIPtin 100 MG TABLET PO SCH (09:57)
[2017-04-21] MEDS: PANTOPRAZOLE 40 MG TABLET PO SCH (09:57)
[2017-04-21] MEDS: CYANOCOBALAMIN 500 MCG TABLET PO SCH (09:57)
[2017-04-21] MEDS: MEMANTINE 10 MG TABLET PO SCH (09:57)
[2017-04-21] MEDS: APIXABAN 5 MG TABLET PO SCH (09:57)
[2017-04-21] MEDS: ESCITALOPRAM 10 MG TABLET PO SCH (09:57)
[2017-04-21] MEDS: BACITRACIN OINT 0.9 GM PACK TOP SCH (09:58)
[2017-04-21] MEDS: INSULIN LISPRO 100 UNIT/ML SUBCUT SCH (09:58)
[2017-04-21] MEDS: INSULIN ASPART PROTAMINE/ASPART 70/30 100 UNIT/ML SUBCUT SCH (09:58)
[2017-04-21] MEDS: FERROUS SULFATE 325 MG TABLET PO SCH (09:58)
[2017-04-24] MEDS ORDERED: SODIUM CHLORIDE 0.45% 1,000 ML IV SCH (08:00)
== END 2017-04-21 12:23 | disposition home or self-care (01) | DRG 683 ==
LOC: EDUNIT# → EDBD → N.ED 11:11 → N.EDINP 14:27 → N.5E 17:32

== ENCOUNTER 2017-04-21 12:33 | Inpatient (IN) ==
[2017-04-21] MEDS ORDERED: DEXTROSE 50% 25 GM/50 ML VIAL IV PRN (15:13)
[2017-04-21] MEDS ORDERED: GLUCAGON 1 MG VIAL IM PRN (15:13)
[2017-04-21] MEDS ORDERED: ZINC OXIDE PASTE 113 GM TUBE TOP PRN (15:15)
[2017-04-21 18:43] LABS: % Iron Saturation 18.7 % (18-50)
[2017-04-21] MEDS: INSULIN REGULAR 100 UNIT/ML SUBCUT SCH ×2 (18:47→22:20)
[2017-04-21] MEDS: INSULIN NPH 100 UNIT/ML SUBCUT SCH (18:56)
[2017-04-21] MEDS: ATORVASTATIN 10 MG TABLET PO SCH (21:44)
[2017-04-21] MEDS: APIXABAN 5 MG TABLET PO SCH (21:44)
[2017-04-21] MEDS: MEMANTINE 10 MG TABLET PO SCH (21:44)
[2017-04-21] MEDS: ASPIRIN EC 81 MG TABLET PO SCH (21:44)
[2017-04-22] MEDS: LEVOTHYROXINE 100 MCG TABLET PO SCH (07:48)
[2017-04-22] MEDS: INSULIN REGULAR 100 UNIT/ML SUBCUT SCH ×4 (09:45→22:31)
[2017-04-22] MEDS: INSULIN NPH 100 UNIT/ML SUBCUT SCH ×2 (09:46→16:21)
[2017-04-22] MEDS: TAMSULOSIN 0.4 MG CAPSULE PO SCH (11:38)
[2017-04-22] MEDS: ESCITALOPRAM 10 MG TABLET PO SCH (11:38)
[2017-04-22] MEDS: APIXABAN 5 MG TABLET PO SCH ×2 (11:38→22:26)
[2017-04-22] MEDS: MEMANTINE 10 MG TABLET PO SCH ×2 (11:38→22:26)
[2017-04-22] MEDS: BACITRACIN OINT 0.9 GM PACK TOP SCH (16:22)
[2017-04-22] MEDS: ATORVASTATIN 10 MG TABLET PO SCH (22:26)
[2017-04-22] MEDS: ASPIRIN EC 81 MG TABLET PO SCH (22:31)
[2017-04-23] MEDS: LEVOTHYROXINE 100 MCG TABLET PO SCH (07:35)
[2017-04-23] MEDS: INSULIN NPH 100 UNIT/ML SUBCUT SCH ×2 (08:51→17:18)
[2017-04-23] MEDS: INSULIN REGULAR 100 UNIT/ML SUBCUT SCH ×4 (08:52→22:12)
[2017-04-23] MEDS: ESCITALOPRAM 10 MG TABLET PO SCH (08:53)
[2017-04-23] MEDS: MEMANTINE 10 MG TABLET PO SCH ×2 (08:53→22:13)
[2017-04-23] MEDS: DOCUSATE SODIUM 100 MG CAPSULE PO PRN (08:53)
[2017-04-23] MEDS: APIXABAN 5 MG TABLET PO SCH ×2 (08:53→22:13)
[2017-04-23] MEDS: TAMSULOSIN 0.4 MG CAPSULE PO SCH (08:53)
[2017-04-23] MEDS: METOCLOPRAMIDE 10 MG/10 ML UDCUP PO SCH ×3 (14:30→22:13)
[2017-04-23] MEDS: BACITRACIN OINT 0.9 GM PACK TOP SCH (16:16)
[2017-04-23] MEDS: ASPIRIN EC 81 MG TABLET PO SCH (22:13)
[2017-04-23] MEDS: ATORVASTATIN 10 MG TABLET PO SCH (22:13)
[2017-04-24 05:00] LABS: Basophils # 0.1 10*3/uL (0.0-0.2); Basophils % 1.3 % (0.0-0.8); Eosinophils # 0.5 10*3/uL (0.0-0.87); Eosinophils % 6.8 % (0.00-10.9); Hematocrit 31.2 VOL% (42.0-52.0); Hemoglobin 10.2 GM/DL (14.0-18.0); Immature Granulocytes % 1.4 %; Immature Granulocytes Absolute 0.11 #; Lymphocytes # 1.8 10*3/uL (1.4-4.0); Lymphocytes % 23.1 % (21.2-54.2); Mean Corpuscular HGB Conc 32.7 GM/DL (32-36); Mean Corpuscular Hemoglobin 30 PG (27-34); Mean Corpuscular Volume 90.7 FL (87-102); Mean Platelet Volume 11.2 FL (9.6-12.0); Monocytes # 0.9 10*3/uL (0.11-0.8); Monocytes % 11.6 % (1.7-12.7); Neutrophils # 4.3 10*3/uL (1.4-7.4); Neutrophils % 55.8 % (38.7-73.9); Platelet Count 200 T/CUMM (130-400); Red Blood Count 3.44 MC/CUMM (3.8-5.5); Red Cell Distribution Width 14.2 % (9.3-17.3); White Blood Count 7.8 T/CUMM (4-12)
[2017-04-24 05:43] LABS: Calcium 8.1 MG/DL (8.5-10.1); Potassium 4.2 MMOL/L (3.5-5.1)
[2017-04-24] MEDS: METOCLOPRAMIDE 10 MG/10 ML UDCUP PO SCH ×4 (07:03→21:21)
[2017-04-24] MEDS: LEVOTHYROXINE 100 MCG TABLET PO SCH (07:03)
[2017-04-24] MEDS: INSULIN REGULAR 100 UNIT/ML SUBCUT SCH ×4 (10:21→21:23)
[2017-04-24] MEDS: INSULIN NPH 100 UNIT/ML SUBCUT SCH ×2 (10:21→16:45)
[2017-04-24] MEDS: MEMANTINE 10 MG TABLET PO SCH ×2 (10:22→21:22)
[2017-04-24] MEDS: ESCITALOPRAM 10 MG TABLET PO SCH (10:22)
[2017-04-24] MEDS: BACITRACIN OINT 0.9 GM PACK TOP SCH (10:23)
[2017-04-24] MEDS: APIXABAN 5 MG TABLET PO SCH ×2 (10:23→21:22)
[2017-04-24] MEDS: TAMSULOSIN 0.4 MG CAPSULE PO SCH (10:23)
[2017-04-24] MEDS: DOCUSATE SODIUM 100 MG CAPSULE PO PRN ×2 (10:23→21:22)
[2017-04-24] MEDS: ATORVASTATIN 10 MG TABLET PO SCH (21:21)
[2017-04-24] MEDS: ASPIRIN EC 81 MG TABLET PO SCH (21:22)
[2017-04-25] MEDS: LEVOTHYROXINE 100 MCG TABLET PO SCH (07:30)
[2017-04-25] MEDS: METOCLOPRAMIDE 10 MG/10 ML UDCUP PO SCH (07:30)
[2017-04-25] MEDS: INSULIN NPH 100 UNIT/ML SUBCUT SCH (08:53)
[2017-04-25] MEDS: INSULIN REGULAR 100 UNIT/ML SUBCUT SCH ×2 (08:55→12:10)
[2017-04-25] MEDS: ESCITALOPRAM 10 MG TABLET PO SCH (08:55)
[2017-04-25] MEDS: MEMANTINE 10 MG TABLET PO SCH (08:56)
[2017-04-25] MEDS: APIXABAN 5 MG TABLET PO SCH (08:56)
[2017-04-25] MEDS: TAMSULOSIN 0.4 MG CAPSULE PO SCH (08:56)
[2017-04-25] MEDS: BACITRACIN OINT 0.9 GM PACK TOP SCH (08:56)
[2017-04-25 12:39] VITALS: BP 148/69
== END 2017-04-25 14:30 | DRG 74 ==
LOC: EDUNIT# → N.ED 12:33 → SUATTDRO 14:21 → N.EDINP 14:21 → N.2E 16:40
PROVIDERS: ADMIT Internal Medicine Cardiovascular Disease; ATTEND Internal Medicine

== ENCOUNTER 2017-06-11 23:28 | Inpatient (IN) ==
[2017-06-12 00:37] LABS: Basophils # 0.1 10*3/uL (0.0-0.2); Eosinophils # 0.4 10*3/uL (0.0-0.87); Eosinophils % 4.1 % (0.00-10.9); Hematocrit 32.7 VOL% (42.0-52.0); Hemoglobin 10.9 GM/DL (14.0-18.0); Immature Granulocytes % 1.2 %; Immature Granulocytes Absolute 0.12 #; Lymphocytes # 1.7 10*3/uL (1.4-4.0); Lymphocytes % 17.6 % (21.2-54.2); Mean Corpuscular HGB Conc 33.3 GM/DL (32-36); Mean Corpuscular Hemoglobin 29 PG (27-34); Mean Platelet Volume 11.9 FL (9.6-12.0); Monocytes # 0.8 10*3/uL (0.11-0.8); Monocytes % 7.7 % (1.7-12.7); Neutrophils # 6.7 10*3/uL (1.4-7.4); Neutrophils % 68.4 % (38.7-73.9); Platelet Count 259 T/CUMM (130-400); Red Blood Count 3.76 MC/CUMM (3.8-5.5); Red Cell Distribution Width 13.5 % (9.3-17.3); White Blood Count 9.9 T/CUMM (4-12)
[2017-06-12 00:52] LABS: Alanine Aminotransferase 14 U/L (16-61); Albumin 3.2 G/DL (3.4-5.0); Alkaline Phosphatase 96 U/L (45-117); Aspartate Amino Transferase 18 U/L (0-37); Bilirubin,Total < 0.39 MG/DL (0.2-1.0); Blood Urea Nitrogen 48 MG/DL (7-18); Calcium 9.2 MG/DL (8.5-10.1); Glucose 122 MG/DL (74-106); Osmolality,Calculated 290.5 MOS/KG (273-304); Potassium 5.1 MMOL/L (3.5-5.1); Sodium 139 MMOL/L (136-145); Total Protein 7.6 G/DL (6.4-8.3)
[2017-06-12 01:31] LABS: Apearance,Urine CLEAR (Clear); Bilirubin,Urine Negative (Negative); Blood, Urine Negative (Negative); Glucose,Urine (UA) 50 mg/dL (Negative); Ketones,Urine Negative (Negative); Mucus,Urine Occasional /LPF (Occasional); Nitrite,Urine Negative (Negative); Protein,Urine 100 MG/DL; RBC,Urine 3 /HPF (0-4); Urine Color Yellow (Yellow); Urine Specific Gravity 1.014 (1.001-1.035); Urine Urobilinogen < 2.0 EU/DL (0.2-1.0); WBC,Urine <1 /HPF (0-6)
[2017-06-12] MEDS ORDERED: ACETAMINOPHEN 325 MG TABLET PO PRN (02:54)
[2017-06-12] MEDS ORDERED: MORPHINE 4 MG/1 ML VIAL IV PRN (02:54)
[2017-06-12] MEDS ORDERED: GLUCAGON 1 MG VIAL IM PRN (02:54)
[2017-06-12] MEDS ORDERED: DEXTROSE 50% 25 GM/50 ML VIAL IV PRN (02:54)
[2017-06-12] MEDS ORDERED: ONDANSETRON 4 MG/2 ML VIAL IV PRN (02:54)
[2017-06-12] MEDS ORDERED: metroNIDAZOLE INJ 500 MG in PREMIX 1 EACH IV SCH (04:30)
[2017-06-12] MEDS: PIPERACILLIN/TAZOBACTAM 3,375 MG in SODIUM CHLORIDE 0.9% 100 ML IV SCH ×3 (05:15→22:34)
[2017-06-12 06:16] LABS: Basophils # 0.1 10*3/uL (0.0-0.2); Eosinophils # 0.4 10*3/uL (0.0-0.87); Eosinophils % 4.3 % (0.00-10.9); Hematocrit 30.8 VOL% (42.0-52.0); Hemoglobin 10.5 GM/DL (14.0-18.0); Immature Granulocytes % 0.6 %; Immature Granulocytes Absolute 0.06 #; Mean Corpuscular HGB Conc 34.1 GM/DL (32-36); Mean Corpuscular Hemoglobin 30 PG (27-34); Mean Corpuscular Volume 87.7 FL (87-102); Mean Platelet Volume 12.2 FL (9.6-12.0); Monocytes # 0.8 10*3/uL (0.11-0.8); Neutrophils # 6.1 10*3/uL (1.4-7.4); Neutrophils % 65.1 % (38.7-73.9); Platelet Count 242 T/CUMM (130-400); Red Blood Count 3.51 MC/CUMM (3.8-5.5); Red Cell Distribution Width 13.5 % (9.3-17.3); White Blood Count 9.3 T/CUMM (4-12)
[2017-06-12 06:56] LABS: Calcium 9.1 MG/DL (8.5-10.1); Osmolality,Calculated 293.3 MOS/KG (273-304); Potassium 4.8 MMOL/L (3.5-5.1); Thyroid Stimulating Hormone 7.36 uIU/ml (0.358-3.74)
[2017-06-12] MEDS: INSULIN LISPRO 100 UNIT/ML SUBCUT SCH ×5 (07:51→22:34)
[2017-06-12] MEDS ORDERED: MAGNESIUM HYDROXIDE SUSP 30 ML UDCUP PO PRN (08:51)
[2017-06-12] MEDS ORDERED: DICLOFENAC 1% GEL 100 GM TUBE TOP PRN (08:51)
[2017-06-12] MEDS ORDERED: DOCUSATE SODIUM 100 MG CAPSULE PO PRN (08:51)
[2017-06-12] MEDS ORDERED: PANTOPRAZOLE 40 MG TABLET PO SCH (09:00)
[2017-06-12] MEDS ORDERED: Lysine 1,000 MG PO SCH (09:00)
[2017-06-12] MEDS: PANTOPRAZOLE 40 MG TABLET PO SCH (10:10)
[2017-06-12] MEDS: hydrALAZINE 25 MG TABLET PO SCH ×2 (10:32→22:34)
[2017-06-12] MEDS: ESCITALOPRAM 10 MG TABLET PO SCH (10:32)
[2017-06-12] MEDS: APIXABAN 2.5 MG TABLET PO SCH ×2 (10:33→22:34)
[2017-06-12] MEDS: TAMSULOSIN 0.4 MG CAPSULE PO SCH (10:33)
[2017-06-12] MEDS: MULTIVITAMIN (CENTRUM) TABLET PO SCH (10:33)
[2017-06-12] MEDS: CYANOCOBALAMIN 500 MCG TABLET PO SCH (10:33)
[2017-06-12] MEDS: BISACODYL 5 MG TABLET PO SCH ×2 (10:33→17:03)
[2017-06-12] MEDS: LEVOTHYROXINE 100 MCG TABLET PO SCH (10:54)
[2017-06-12] MEDS: POLYETHYLENE GLYCOL POWDER 17 GM PACK PO SCH ×3 (13:54→22:35)
[2017-06-12] MEDS: INSULIN NPH 100 UNIT/ML SUBCUT SCH (17:02)
[2017-06-12] MEDS ORDERED: Calcium-Magnesium-Zinc Tablet PO SCH (21:00)
[2017-06-12] MEDS ORDERED: diphenhydrAMINE 50 MG/1 ML VIAL IV PRN (22:07)
[2017-06-12] MEDS: ASPIRIN EC 81 MG TABLET PO SCH (22:34)
[2017-06-13] MEDS: BISACODYL 5 MG TABLET PO SCH (03:12)
[2017-06-13] MEDS: PIPERACILLIN/TAZOBACTAM 3,375 MG in SODIUM CHLORIDE 0.9% 100 ML IV SCH ×3 (05:02→21:49)
[2017-06-13 05:25] LABS: Basophils # 0.1 10*3/uL (0.0-0.2); Basophils % 1.1 % (0.0-0.8); Eosinophils # 0.6 10*3/uL (0.0-0.87); Eosinophils % 8.7 % (0.00-10.9); Hematocrit 30.2 VOL% (42.0-52.0); Hemoglobin 9.8 GM/DL (14.0-18.0); Immature Granulocytes % 0.8 %; Immature Granulocytes Absolute 0.05 #; Lymphocytes # 0.6 10*3/uL (1.4-4.0); Lymphocytes % 8.7 % (21.2-54.2); Mean Corpuscular HGB Conc 32.5 GM/DL (32-36); Mean Corpuscular Hemoglobin 29 PG (27-34); Mean Corpuscular Volume 90.1 FL (87-102); Mean Platelet Volume 11.7 FL (9.6-12.0); Monocytes # 0.4 10*3/uL (0.11-0.8); Monocytes % 6.5 % (1.7-12.7); Neutrophils # 4.9 10*3/uL (1.4-7.4); Neutrophils % 74.2 % (38.7-73.9); Platelet Count 217 T/CUMM (130-400); Red Blood Count 3.35 MC/CUMM (3.8-5.5); Red Cell Distribution Width 13.2 % (9.3-17.3); White Blood Count 6.6 T/CUMM (4-12)
[2017-06-13 05:44] LABS: Calcium 8.4 MG/DL (8.5-10.1); Osmolality,Calculated 293.4 MOS/KG (273-304); Potassium 4.5 MMOL/L (3.5-5.1)
[2017-06-13] MEDS ORDERED: SKIN HEALING OINT (AQUAPHOR) 50 GM TUBE TOP PRN (10:31)
[2017-06-13] MEDS: INSULIN LISPRO 100 UNIT/ML SUBCUT SCH ×5 (10:42→18:03)
[2017-06-13] MEDS: CYANOCOBALAMIN 500 MCG TABLET PO SCH (10:48)
[2017-06-13] MEDS: hydrALAZINE 25 MG TABLET PO SCH ×2 (10:48→21:52)
[2017-06-13] MEDS: POLYETHYLENE GLYCOL POWDER 17 GM PACK PO SCH (10:48)
[2017-06-13] MEDS: APIXABAN 2.5 MG TABLET PO SCH ×2 (10:49→21:52)
[2017-06-13] MEDS: TAMSULOSIN 0.4 MG CAPSULE PO SCH (10:49)
[2017-06-13] MEDS: ESCITALOPRAM 10 MG TABLET PO SCH (10:49)
[2017-06-13] MEDS: MULTIVITAMIN (CENTRUM) TABLET PO SCH (10:50)
[2017-06-13] MEDS: LEVOTHYROXINE 100 MCG TABLET PO SCH (10:51)
[2017-06-13] MEDS: PANTOPRAZOLE 40 MG TABLET PO SCH (10:51)
[2017-06-13] MEDS: INSULIN NPH 100 UNIT/ML SUBCUT SCH ×2 (10:53→18:02)
[2017-06-13] MEDS ORDERED: GENTAMICIN 0.1% CREAM 15 GM TUBE TOP SCH (11:00)
[2017-06-13] MEDS ORDERED: INFLUENZA VIRUS VACCINE 0.5 ML SYRINGE IM ONE (18:00)
[2017-06-13 20:11] LABS: Apearance,Urine Slightly Hazy (Clear); Bacteria,Urine Occasional /HPF (Few); Bilirubin,Urine Negative (Negative); Blood, Urine Moderate mg/dL (Negative); Glucose,Urine (UA) 50 mg/dL (Negative); Ketones,Urine Negative (Negative); Nitrite,Urine Negative (Negative); Protein,Urine 100 MG/DL; RBC,Urine 59 /HPF (0-4); Squamous Epithelial Cell,Urine Occasional /HPF (0-10); Urine Color Yellow (Yellow); Urine Specific Gravity 1.018 (1.001-1.035); Urine Urobilinogen < 2.0 EU/DL (0.2-1.0); WBC,Urine 6 /HPF (0-6)
[2017-06-13] MEDS: ASPIRIN EC 81 MG TABLET PO SCH (21:52)
[2017-06-14] MEDS: INSULIN LISPRO 100 UNIT/ML SUBCUT SCH ×3 (02:43→10:33)
[2017-06-14] MEDS: PIPERACILLIN/TAZOBACTAM 3,375 MG in SODIUM CHLORIDE 0.9% 100 ML IV SCH (04:30)
[2017-06-14] MEDS: MULTIVITAMIN (CENTRUM) TABLET PO SCH (10:30)
[2017-06-14] MEDS: ESCITALOPRAM 10 MG TABLET PO SCH (10:30)
[2017-06-14] MEDS: TAMSULOSIN 0.4 MG CAPSULE PO SCH (10:31)
[2017-06-14] MEDS: LEVOTHYROXINE 100 MCG TABLET PO SCH (10:31)
[2017-06-14] MEDS: APIXABAN 2.5 MG TABLET PO SCH (10:31)
[2017-06-14] MEDS: PANTOPRAZOLE 40 MG TABLET PO SCH (10:31)
[2017-06-14] MEDS: hydrALAZINE 25 MG TABLET PO SCH (10:31)
[2017-06-14] MEDS: INSULIN NPH 100 UNIT/ML SUBCUT SCH (10:32)
[2017-06-14] MEDS: CYANOCOBALAMIN 500 MCG TABLET PO SCH (10:32)
[2017-06-14 12:17] VITALS: BP 131/63
== END 2017-06-14 12:25 | disposition home health service (06) | DRG 394 ==
LOC: EDUNIT# → EDBD → N.ED 23:28 → N.EDINP 06-12 02:53 → SUATTDRO 06-12 02:53 → N.TELES 06-12 03:46
PROVIDERS: ADMIT Hospitalist; ATTEND Hospitalist

== ENCOUNTER 2017-07-23 12:17 | Inpatient (IN) ==
[2017-07-23] MEDS ORDERED: FUROSEMIDE 100 MG/10 ML VIAL IV STA (12:35)
[2017-07-23] MEDS ORDERED: ALBUTEROL/IPRATROPIUM 3 ML NEB RESP TX STA (12:35)
[2017-07-23] MEDS ORDERED: ONDANSETRON 4 MG/2 ML VIAL IV STA (12:35)
[2017-07-23 13:13] LABS: Basophils # 0.1 10*3/uL (0.0-0.2); Basophils % 1.2 % (0.0-0.8); Eosinophils # 0.8 10*3/uL (0.0-0.87); Eosinophils % 9.2 % (0.00-10.9); Hematocrit 25.8 VOL% (42.0-52.0); Hemoglobin 8.2 GM/DL (14.0-18.0); Immature Granulocytes % 0.5 %; Immature Granulocytes Absolute 0.05 #; Lymphocytes # 1.2 10*3/uL (1.4-4.0); Lymphocytes % 13.6 % (21.2-54.2); Mean Corpuscular HGB Conc 31.8 GM/DL (32-36); Mean Corpuscular Hemoglobin 28 PG (27-34); Mean Corpuscular Volume 87.8 FL (87-102); Mean Platelet Volume 11.9 FL (9.6-12.0); Monocytes # 0.9 10*3/uL (0.11-0.8); Monocytes % 9.7 % (1.7-12.7); Neutrophils % 65.8 % (38.7-73.9); Platelet Count 206 T/CUMM (130-400); Red Blood Count 2.94 MC/CUMM (3.8-5.5); Red Cell Distribution Width 13.5 % (9.3-17.3); White Blood Count 9.2 T/CUMM (4-12)
[2017-07-23 13:26] LABS: PT Patient Result 10.7 SECS; Partial Thromboplastin Time 28.4 SECS (0-40)
[2017-07-23 13:33] LABS: Alanine Aminotransferase 13 U/L (16-61); Albumin 2.7 G/DL (3.4-5.0); Alkaline Phosphatase 88 U/L (45-117); Aspartate Amino Transferase 13 U/L (0-37); Bilirubin,Total < 0.39 MG/DL (0.2-1.0); Blood Urea Nitrogen 28 MG/DL (7-18); Calcium 8.3 MG/DL (8.5-10.1); Glucose 192 MG/DL (74-106); Osmolality,Calculated 287.5 MOS/KG (273-304); Potassium 4.4 MMOL/L (3.5-5.1); Sodium 139 MMOL/L (136-145); Total Protein 6.8 G/DL (6.4-8.3)
[2017-07-23 13:55] LABS: Apearance,Urine CLEAR (Clear); Bilirubin,Urine Negative (Negative); Blood, Urine Large mg/dL (Negative); Glucose,Urine (UA) Negative (Negative); Hyaline Casts,Urine 1 /LPF (0-3); Ketones,Urine Negative (Negative); Mucus,Urine Occasional /LPF (Occasional); Nitrite,Urine Negative (Negative); Protein,Urine 30 MG/DL; RBC,Urine 127 /HPF (0-4); Squamous Epithelial Cell,Urine Occasional /HPF (0-10); Urine Color Straw (Yellow); Urine Specific Gravity 1.006 (1.001-1.035); Urine Urobilinogen < 2.0 EU/DL (0.2-1.0); WBC,Urine 1 /HPF (0-6)
[2017-07-23 14:22] LABS: Barbiturates Screen,Urine Negative (Negative); Benzodiazepines Screen,Urine Negative (Negative); Cannabinoid Screen,Urine Negative (Negative); Opiate Screen,Urine Negative (Negative); Phencyclidine Screen,Urine Negative (Negative)
[2017-07-23] MEDS ORDERED: ONDANSETRON 4 MG/2 ML VIAL IV PRN (15:13)
[2017-07-23 18:36] LABS: Troponin I Only 0.112 NG/ML (0.00-0.045)
[2017-07-23] MEDS ORDERED: GUAIFEN PO PRN (18:43)
[2017-07-23] MEDS ORDERED: [UNRECOGNIZED DRUG - OTHER] PO PRN (18:43)
[2017-07-23] MEDS ORDERED: DICLOFENAC 1% GEL 100 GM TUBE TOP PRN (18:43)
[2017-07-23] MEDS ORDERED: PHENYLEPH PO PRN (18:43)
[2017-07-23] MEDS ORDERED: ACETAMINOPHN PO PRN (18:43)
[2017-07-23] MEDS ORDERED: GLUCAGON 1 MG VIAL IM PRN (18:45)
[2017-07-23] MEDS ORDERED: DEXTROSE 50% 25 GM/50 ML VIAL IV PRN (18:45)
[2017-07-23] MEDS: FUROSEMIDE 40 MG/4 ML VIAL IV SCH (18:51)
[2017-07-23] MEDS: INSULIN LISPRO 100 UNIT/ML SUBCUT SCH (20:35)
[2017-07-23] MEDS: LACOSAMIDE 50 MG TABLET PO SCH (20:35)
[2017-07-23] MEDS: TAMSULOSIN 0.4 MG CAPSULE PO SCH (20:35)
[2017-07-23] MEDS: APIXABAN 2.5 MG TABLET PO SCH (20:35)
[2017-07-23] MEDS: levETIRAcetam 500 MG TABLET PO SCH (20:35)
[2017-07-23 22:02] LABS: % Iron Saturation 8.8 % (18-50); Ferritin 23.6 ng/ml (26-388)
[2017-07-24 04:55] LABS: Basophils # 0.1 10*3/uL (0.0-0.2); Basophils % 1.3 % (0.0-0.8); Eosinophils # 0.7 10*3/uL (0.0-0.87); Eosinophils % 9.4 % (0.00-10.9); Hematocrit 24.2 VOL% (42.0-52.0); Hemoglobin 7.7 GM/DL (14.0-18.0); Immature Granulocytes % 0.4 %; Immature Granulocytes Absolute 0.03 #; Lymphocytes # 1.5 10*3/uL (1.4-4.0); Lymphocytes % 21.8 % (21.2-54.2); Mean Corpuscular HGB Conc 31.8 GM/DL (32-36); Mean Corpuscular Hemoglobin 28 PG (27-34); Mean Corpuscular Volume 87.4 FL (87-102); Monocytes # 0.7 10*3/uL (0.11-0.8); Monocytes % 9.6 % (1.7-12.7); Neutrophils # 4.1 10*3/uL (1.4-7.4); Neutrophils % 57.5 % (38.7-73.9); Platelet Count 191 T/CUMM (130-400); Red Blood Count 2.77 MC/CUMM (3.8-5.5); Red Cell Distribution Width 13.2 % (9.3-17.3); White Blood Count 7.1 T/CUMM (4-12)
[2017-07-24 05:29] LABS: Blood Urea Nitrogen 30 MG/DL (7-18); Calcium 8.4 MG/DL (8.5-10.1); Glucose 197 MG/DL (74-106); Osmolality,Calculated 291.3 MOS/KG (273-304); Potassium 4.5 MMOL/L (3.5-5.1); Sodium 141 MMOL/L (136-145)
[2017-07-24 05:31] LABS: Troponin I Only 0.114 NG/ML (0.00-0.045)
[2017-07-24] MEDS: LEVOTHYROXINE 100 MCG TABLET PO SCH (06:05)
[2017-07-24] MEDS ORDERED: DEXTROSE 50% 25 GM/50 ML VIAL IV PRN (07:54)
[2017-07-24] MEDS ORDERED: GLUCAGON 1 MG VIAL IM PRN (07:54)
[2017-07-24] MEDS: INSULIN LISPRO 100 UNIT/ML SUBCUT SCH ×6 (08:41→20:46)
[2017-07-24] MEDS: FUROSEMIDE 40 MG/4 ML VIAL IV SCH ×3 (08:42→20:46)
[2017-07-24] MEDS: INSULIN NPH 100 UNIT/ML SUBCUT SCH ×2 (08:42→15:50)
[2017-07-24] MEDS: POLYETHYLENE GLYCOL POWDER 17 GM PACK PO SCH (08:42)
[2017-07-24] MEDS: CYANOCOBALAMIN 500 MCG TABLET PO SCH (08:43)
[2017-07-24] MEDS: MULTIVITAMIN (CENTRUM) TABLET PO SCH (08:43)
[2017-07-24] MEDS: CHOLECALCIFEROL 5,000 UNIT TABLET PO SCH (08:43)
[2017-07-24] MEDS: APIXABAN 2.5 MG TABLET PO SCH ×2 (08:43→20:44)
[2017-07-24] MEDS: LYSINE 500 MG TABLET PO SCH (08:43)
[2017-07-24] MEDS: ASPIRIN CHEW 81 MG TABLET PO SCH (08:43)
[2017-07-24] MEDS: PANTOPRAZOLE 40 MG TABLET PO SCH (08:44)
[2017-07-24] MEDS: TAMSULOSIN 0.4 MG CAPSULE PO SCH ×2 (08:44→20:44)
[2017-07-24] MEDS: LACOSAMIDE 50 MG TABLET PO SCH ×2 (08:44→20:44)
[2017-07-24] MEDS: levETIRAcetam 500 MG TABLET PO SCH ×2 (08:44→20:43)
[2017-07-24] MEDS ORDERED: SODIUM CHLORIDE 0.9% 1,000 ML IV PRN (11:20)
[2017-07-25 04:42] LABS: Hematocrit 29.1 VOL% (42.0-52.0)
[2017-07-25 04:44] LABS: Basophils # 0.1 10*3/uL (0.0-0.2); Basophils % 1.1 % (0.0-0.8); Eosinophils # 0.7 10*3/uL (0.0-0.87); Eosinophils % 10.2 % (0.00-10.9); Hematocrit 28.8 VOL% (42.0-52.0); Hemoglobin 9.3 GM/DL (14.0-18.0); Immature Granulocytes % 0.7 %; Immature Granulocytes Absolute 0.05 #; Lymphocytes # 1.6 10*3/uL (1.4-4.0); Lymphocytes % 22.7 % (21.2-54.2); Mean Corpuscular HGB Conc 32.3 GM/DL (32-36); Mean Corpuscular Hemoglobin 28 PG (27-34); Mean Corpuscular Volume 86.2 FL (87-102); Mean Platelet Volume 11.8 FL (9.6-12.0); Monocytes # 0.7 10*3/uL (0.11-0.8); Monocytes % 9.6 % (1.7-12.7); Neutrophils % 55.7 % (38.7-73.9); Platelet Count 203 T/CUMM (130-400); Red Blood Count 3.34 MC/CUMM (3.8-5.5); Red Cell Distribution Width 13.6 % (9.3-17.3); White Blood Count 7.2 T/CUMM (4-12)
[2017-07-25 04:48] LABS: Hemoglobin 9.3 GM/DL (14.0-18.0)
[2017-07-25 05:02] LABS: Calcium 8.5 MG/DL (8.5-10.1); Osmolality,Calculated 288.5 MOS/KG (273-304); Potassium 4.4 MMOL/L (3.5-5.1)
[2017-07-25] MEDS: LEVOTHYROXINE 100 MCG TABLET PO SCH (06:16)
[2017-07-25] MEDS: INSULIN LISPRO 100 UNIT/ML SUBCUT SCH ×6 (08:37→22:24)
[2017-07-25] MEDS: INSULIN NPH 100 UNIT/ML SUBCUT SCH ×2 (08:38→17:27)
[2017-07-25] MEDS: ASPIRIN CHEW 81 MG TABLET PO SCH (08:39)
[2017-07-25] MEDS: POLYETHYLENE GLYCOL POWDER 17 GM PACK PO SCH (08:39)
[2017-07-25] MEDS: MULTIVITAMIN (CENTRUM) TABLET PO SCH (08:39)
[2017-07-25] MEDS: CHOLECALCIFEROL 5,000 UNIT TABLET PO SCH (08:39)
[2017-07-25] MEDS: LYSINE 500 MG TABLET PO SCH (08:39)
[2017-07-25] MEDS: APIXABAN 2.5 MG TABLET PO SCH ×2 (08:40→21:21)
[2017-07-25] MEDS: LACOSAMIDE 50 MG TABLET PO SCH ×2 (08:40→22:24)
[2017-07-25] MEDS: CYANOCOBALAMIN 500 MCG TABLET PO SCH (08:40)
[2017-07-25] MEDS: TAMSULOSIN 0.4 MG CAPSULE PO SCH ×2 (08:40→21:21)
[2017-07-25] MEDS: levETIRAcetam 500 MG TABLET PO SCH ×2 (08:40→21:21)
[2017-07-25] MEDS: PANTOPRAZOLE 40 MG TABLET PO SCH (08:40)
[2017-07-25] MEDS: FUROSEMIDE 40 MG/4 ML VIAL IV SCH (08:41)
[2017-07-25] MEDS: CETIRIZINE 10 MG TABLET PO SCH (12:43)
[2017-07-25] MEDS: FLUTICASONE 50 MCG NASAL SPRAY 16 GM BOTTLE BOTH NARES SCH (12:43)
[2017-07-25] MEDS ORDERED: hydrALAZINE 10 MG TABLET PO SCH (15:00)
[2017-07-25] MEDS: CARVEDILOL 3.125 MG TABLET PO SCH (21:21)
[2017-07-26] MEDS: LEVOTHYROXINE 100 MCG TABLET PO SCH (07:22)
[2017-07-26] MEDS: INSULIN LISPRO 100 UNIT/ML SUBCUT SCH ×3 (08:30→12:33)
[2017-07-26] MEDS: INSULIN NPH 100 UNIT/ML SUBCUT SCH (09:38)
[2017-07-26] MEDS: LYSINE 500 MG TABLET PO SCH (09:40)
[2017-07-26] MEDS: CETIRIZINE 10 MG TABLET PO SCH (09:40)
[2017-07-26] MEDS: CHOLECALCIFEROL 5,000 UNIT TABLET PO SCH (09:40)
[2017-07-26] MEDS: MULTIVITAMIN (CENTRUM) TABLET PO SCH (09:40)
[2017-07-26] MEDS: LACOSAMIDE 50 MG TABLET PO SCH (09:40)
[2017-07-26] MEDS: CARVEDILOL 3.125 MG TABLET PO SCH (09:41)
[2017-07-26] MEDS: POLYETHYLENE GLYCOL POWDER 17 GM PACK PO SCH (09:41)
[2017-07-26] MEDS: APIXABAN 2.5 MG TABLET PO SCH (09:41)
[2017-07-26] MEDS: CYANOCOBALAMIN 500 MCG TABLET PO SCH (09:41)
[2017-07-26] MEDS: FLUTICASONE 50 MCG NASAL SPRAY 16 GM BOTTLE BOTH NARES SCH (09:41)
[2017-07-26] MEDS: ASPIRIN CHEW 81 MG TABLET PO SCH (09:41)
[2017-07-26] MEDS: levETIRAcetam 500 MG TABLET PO SCH (09:41)
[2017-07-26] MEDS: TAMSULOSIN 0.4 MG CAPSULE PO SCH (09:41)
[2017-07-26] MEDS: PANTOPRAZOLE 40 MG TABLET PO SCH (09:41)
[2017-07-26 11:01] LABS: Basophils # 0.1 10*3/uL (0.0-0.2); Basophils % 1.6 % (0.0-0.8); Eosinophils # 0.8 10*3/uL (0.0-0.87); Eosinophils % 10.3 % (0.00-10.9); Hematocrit 34.1 VOL% (42.0-52.0); Hemoglobin 11.1 GM/DL (14.0-18.0); Immature Granulocytes % 0.9 %; Immature Granulocytes Absolute 0.07 #; Lymphocytes # 1.5 10*3/uL (1.4-4.0); Lymphocytes % 18.5 % (21.2-54.2); Mean Corpuscular HGB Conc 32.6 GM/DL (32-36); Mean Corpuscular Hemoglobin 28 PG (27-34); Mean Corpuscular Volume 86.8 FL (87-102); Mean Platelet Volume 11.6 FL (9.6-12.0); Monocytes # 0.7 10*3/uL (0.11-0.8); Monocytes % 8.4 % (1.7-12.7); Neutrophils # 4.9 10*3/uL (1.4-7.4); Neutrophils % 60.3 % (38.7-73.9); Platelet Count 255 T/CUMM (130-400); Red Blood Count 3.93 MC/CUMM (3.8-5.5); Red Cell Distribution Width 13.7 % (9.3-17.3); White Blood Count 8.1 T/CUMM (4-12)
[2017-07-26 11:27] LABS: Calcium 8.3 MG/DL (8.5-10.1); Osmolality,Calculated 288.4 MOS/KG (273-304); Potassium 4.4 MMOL/L (3.5-5.1)
[2017-07-26 11:41] VITALS: BP 84/42
== END 2017-07-26 13:30 | disposition home health service (06) | DRG 291 ==
LOC: N.ED 12:17 → N.EDINP 15:11 → N.TELEN 18:12
PROVIDERS: ADMIT Family Medicine; ATTEND Family Medicine

== ENCOUNTER 2017-09-13 21:47 | Inpatient (IN) ==
[2017-09-13 23:21] LABS: Basophils # 0.1 10*3/uL (0.0-0.2); Eosinophils # 0.5 10*3/uL (0.0-0.87); Hematocrit 27.5 VOL% (42.0-52.0); Hemoglobin 8.7 GM/DL (14.0-18.0); Immature Granulocytes Absolute 0.09 #; Lymphocytes # 1.4 10*3/uL (1.4-4.0); Lymphocytes % 15.5 % (21.2-54.2); Mean Corpuscular HGB Conc 31.6 GM/DL (32-36); Mean Corpuscular Hemoglobin 28 PG (27-34); Mean Corpuscular Volume 88.7 FL (87-102); Mean Platelet Volume 11.4 FL (9.6-12.0); Monocytes # 0.9 10*3/uL (0.11-0.8); Monocytes % 9.8 % (1.7-12.7); Neutrophils # 6.2 10*3/uL (1.4-7.4); Neutrophils % 67.7 % (38.7-73.9); Platelet Count 227 T/CUMM (130-400); Red Cell Distribution Width 15.9 % (9.3-17.3); White Blood Count 9.1 T/CUMM (4-12)
[2017-09-13 23:24] LABS: VBG Base Excess -0.3 MEQ/L (0-4); VBG HCO3 23.3 MEQ/L (24-28); VBG Oxygen Saturation 94.8 %; VBG PCO2 35.2 MMHG (41-51); VBG PH 7.438; VBG PO2 70.3 MMHG (17-40)
[2017-09-13 23:29] LABS: Apearance,Urine CLEAR (Clear); Bilirubin,Urine Negative (Negative); Blood, Urine Negative (Negative); Glucose,Urine (UA) >=500 mg/dL (Negative); Ketones,Urine Negative (Negative); Nitrite,Urine Negative (Negative); Protein,Urine 30 MG/DL; RBC,Urine 4 /HPF (0-4); Urine Color Yellow (Yellow); Urine Specific Gravity 1.007 (1.001-1.035); Urine Urobilinogen < 2.0 EU/DL (0.2-1.0)
[2017-09-13 23:43] LABS: Alanine Aminotransferase 11 U/L (16-61); Albumin 2.7 G/DL (3.4-5.0); Alkaline Phosphatase 74 U/L (45-117); Aspartate Amino Transferase 14 U/L (0-37); Bilirubin,Total < 0.39 MG/DL (0.2-1.0); Blood Urea Nitrogen 39 MG/DL (7-18); Calcium 8.6 MG/DL (8.5-10.1); Glucose 203 MG/DL (74-106); Osmolality,Calculated 284.1 MOS/KG (273-304); Potassium 4.6 MMOL/L (3.5-5.1); Sodium 135 MMOL/L (136-145); Total Protein 7.5 G/DL (6.4-8.3); Troponin I Only 0.044 NG/ML (0.00-0.045)
[2017-09-14] MEDS ORDERED: LORazepam 1 MG TABLET PO STA (00:04)
[2017-09-14] MEDS ORDERED: FUROSEMIDE 40 MG/4 ML VIAL IV STA (00:52)
[2017-09-14] MEDS ORDERED: ACETAMINOPHEN 325 MG TABLET PO PRN (00:53)
[2017-09-14] MEDS ORDERED: MAGNESIUM CITRATE 300 ML BOTTLE PO STA (00:53)
[2017-09-14] MEDS ORDERED: ONDANSETRON 4 MG/2 ML VIAL IV PRN (00:53)
[2017-09-14] MEDS ORDERED: SODIUM PHOSPHATE ENEMA 133 ML BOTTLE RECTAL PRN (00:55)
[2017-09-14] MEDS ORDERED: SODIUM PHOSPHATE ENEMA 133 ML BOTTLE RECTAL STA (00:55)
[2017-09-14] MEDS ORDERED: LORazepam 1 MG TABLET ONE (02:03)
[2017-09-14] MEDS ORDERED: ACETAMINOPHN PO PRN (08:57)
[2017-09-14] MEDS ORDERED: ZINC OXIDE PASTE 113 GM TUBE TOP PRN (08:57)
[2017-09-14] MEDS ORDERED: DICLOFENAC 1% GEL 100 GM TUBE TOP PRN (08:57)
[2017-09-14] MEDS ORDERED: PHENYLEPH PO PRN (08:57)
[2017-09-14] MEDS ORDERED: GUAIFEN PO PRN (08:57)
[2017-09-14 10:23] LABS: Troponin I Only 0.042 NG/ML (0.00-0.045)
[2017-09-14] MEDS: LEVOTHYROXINE 100 MCG TABLET PO SCH (10:40)
[2017-09-14] MEDS: PANTOPRAZOLE 40 MG TABLET PO SCH (10:40)
[2017-09-14] MEDS: TAMSULOSIN 0.4 MG CAPSULE PO SCH ×2 (10:40→20:40)
[2017-09-14] MEDS: LYSINE 500 MG TABLET PO SCH (10:40)
[2017-09-14] MEDS: MULTIVITAMIN (CENTRUM) TABLET PO SCH (10:40)
[2017-09-14] MEDS: FLUTICASONE 50 MCG NASAL SPRAY 16 GM BOTTLE BOTH NARES SCH (10:42)
[2017-09-14] MEDS: CHOLECALCIFEROL 5,000 UNIT TABLET PO SCH (10:43)
[2017-09-14] MEDS: CYANOCOBALAMIN 500 MCG TABLET PO SCH (10:43)
[2017-09-14] MEDS: POLYETHYLENE GLYCOL POWDER 17 GM PACK PO SCH (10:43)
[2017-09-14] MEDS: APIXABAN 2.5 MG TABLET PO SCH ×2 (10:43→20:40)
[2017-09-14] MEDS: CARVEDILOL 3.125 MG TABLET PO SCH ×2 (10:43→20:40)
[2017-09-14] MEDS: LACOSAMIDE 50 MG TABLET PO SCH ×2 (10:43→20:40)
[2017-09-14 12:57] LABS: Troponin I Only 0.048 NG/ML (0.00-0.045)
[2017-09-14] MEDS: FUROSEMIDE 40 MG/4 ML VIAL IV SCH (16:36)
[2017-09-14] MEDS: INSULIN NPH 100 UNIT/ML SUBCUT SCH (16:37)
[2017-09-14] MEDS: INSULIN LISPRO 100 UNIT/ML SUBCUT SCH (16:37)
[2017-09-14] MEDS ORDERED: MAG OX PO SCH (19:00)
[2017-09-14] MEDS ORDERED: ZINC SULF PO SCH (19:00)
[2017-09-14] MEDS ORDERED: CALCIUM CARB PO SCH (19:00)
[2017-09-14 19:48] LABS: Troponin I Only 0.034 NG/ML (0.00-0.045)
[2017-09-14] MEDS: ASPIRIN EC 81 MG TABLET PO SCH (20:40)
[2017-09-15 06:54] LABS: Calcium 8.5 MG/DL (8.5-10.1); Osmolality,Calculated 286.4 MOS/KG (273-304); Potassium 3.9 MMOL/L (3.5-5.1)
[2017-09-15] MEDS: INSULIN LISPRO 100 UNIT/ML SUBCUT SCH ×2 (09:17→17:31)
[2017-09-15] MEDS: CHOLECALCIFEROL 5,000 UNIT TABLET PO SCH (09:41)
[2017-09-15] MEDS: LEVOTHYROXINE 100 MCG TABLET PO SCH (09:41)
[2017-09-15] MEDS: TAMSULOSIN 0.4 MG CAPSULE PO SCH ×2 (09:42→21:18)
[2017-09-15] MEDS: CARVEDILOL 3.125 MG TABLET PO SCH ×2 (09:42→21:18)
[2017-09-15] MEDS: CYANOCOBALAMIN 500 MCG TABLET PO SCH (09:42)
[2017-09-15] MEDS: MULTIVITAMIN (CENTRUM) TABLET PO SCH (09:42)
[2017-09-15] MEDS: LACOSAMIDE 50 MG TABLET PO SCH ×2 (09:42→21:18)
[2017-09-15] MEDS: APIXABAN 2.5 MG TABLET PO SCH ×2 (09:42→21:19)
[2017-09-15] MEDS: PANTOPRAZOLE 40 MG TABLET PO SCH (09:42)
[2017-09-15] MEDS: POLYETHYLENE GLYCOL POWDER 17 GM PACK PO SCH (09:42)
[2017-09-15] MEDS: FLUTICASONE 50 MCG NASAL SPRAY 16 GM BOTTLE BOTH NARES SCH (09:43)
[2017-09-15] MEDS: LYSINE 500 MG TABLET PO SCH (09:56)
[2017-09-15] MEDS: FUROSEMIDE 80 MG TABLET PO SCH (09:57)
[2017-09-15] MEDS: INSULIN NPH 100 UNIT/ML SUBCUT SCH ×2 (09:57→17:32)
[2017-09-15] MEDS: FUROSEMIDE 40 MG/4 ML VIAL IV SCH (10:47)
[2017-09-15] MEDS: CLINDAMYCIN INJ 600 MG in PREMIX 1 EACH IV SCH ×2 (15:17→22:43)
[2017-09-15] MEDS ORDERED: FUROSEMIDE 40 MG TABLET PO SCH (16:00)
[2017-09-15] MEDS: ASPIRIN EC 81 MG TABLET PO SCH (21:19)
[2017-09-16] MEDS: CLINDAMYCIN INJ 600 MG in PREMIX 1 EACH IV SCH ×3 (06:17→22:37)
[2017-09-16 07:15] LABS: Calcium 8.1 MG/DL (8.5-10.1); Osmolality,Calculated 287.5 MOS/KG (273-304); Potassium 3.8 MMOL/L (3.5-5.1)
[2017-09-16] MEDS: INSULIN LISPRO 100 UNIT/ML SUBCUT SCH ×2 (09:33→17:03)
[2017-09-16] MEDS: INSULIN NPH 100 UNIT/ML SUBCUT SCH ×2 (09:33→17:04)
[2017-09-16] MEDS: CYANOCOBALAMIN 500 MCG TABLET PO SCH (09:34)
[2017-09-16] MEDS: LYSINE 500 MG TABLET PO SCH (09:34)
[2017-09-16] MEDS: LACOSAMIDE 50 MG TABLET PO SCH ×2 (09:35→20:28)
[2017-09-16] MEDS: FUROSEMIDE 80 MG TABLET PO SCH (09:35)
[2017-09-16] MEDS: TAMSULOSIN 0.4 MG CAPSULE PO SCH ×2 (09:35→20:27)
[2017-09-16] MEDS: APIXABAN 2.5 MG TABLET PO SCH ×2 (09:35→20:27)
[2017-09-16] MEDS: LEVOTHYROXINE 100 MCG TABLET PO SCH (09:35)
[2017-09-16] MEDS: MULTIVITAMIN (CENTRUM) TABLET PO SCH (09:35)
[2017-09-16] MEDS: CHOLECALCIFEROL 5,000 UNIT TABLET PO SCH (09:35)
[2017-09-16] MEDS: PANTOPRAZOLE 40 MG TABLET PO SCH (09:35)
[2017-09-16] MEDS: POLYETHYLENE GLYCOL POWDER 17 GM PACK PO SCH (09:36)
[2017-09-16] MEDS: FLUTICASONE 50 MCG NASAL SPRAY 16 GM BOTTLE BOTH NARES SCH (09:36)
[2017-09-16] MEDS: CARVEDILOL 3.125 MG TABLET PO SCH ×2 (09:42→20:28)
[2017-09-16] MEDS: ASPIRIN EC 81 MG TABLET PO SCH (20:27)
[2017-09-17] MEDS: CLINDAMYCIN INJ 600 MG in PREMIX 1 EACH IV SCH ×3 (06:04→22:28)
[2017-09-17] MEDS: INSULIN NPH 100 UNIT/ML SUBCUT SCH ×2 (07:51→16:34)
[2017-09-17] MEDS: INSULIN LISPRO 100 UNIT/ML SUBCUT SCH ×2 (07:51→16:34)
[2017-09-17] MEDS: LEVOTHYROXINE 100 MCG TABLET PO SCH (09:13)
[2017-09-17] MEDS: CYANOCOBALAMIN 500 MCG TABLET PO SCH (09:13)
[2017-09-17] MEDS: MULTIVITAMIN (CENTRUM) TABLET PO SCH (09:13)
[2017-09-17] MEDS: FUROSEMIDE 80 MG TABLET PO SCH (09:13)
[2017-09-17] MEDS: CHOLECALCIFEROL 5,000 UNIT TABLET PO SCH (09:13)
[2017-09-17] MEDS: POLYETHYLENE GLYCOL POWDER 17 GM PACK PO SCH (09:13)
[2017-09-17] MEDS: LACOSAMIDE 50 MG TABLET PO SCH ×2 (09:13→20:35)
[2017-09-17] MEDS: PANTOPRAZOLE 40 MG TABLET PO SCH (09:13)
[2017-09-17] MEDS: APIXABAN 2.5 MG TABLET PO SCH ×2 (09:13→20:35)
[2017-09-17] MEDS: TAMSULOSIN 0.4 MG CAPSULE PO SCH ×2 (09:13→20:35)
[2017-09-17] MEDS: CARVEDILOL 3.125 MG TABLET PO SCH ×2 (09:14→20:35)
[2017-09-17] MEDS: FLUTICASONE 50 MCG NASAL SPRAY 16 GM BOTTLE BOTH NARES SCH (09:14)
[2017-09-17] MEDS: LYSINE 500 MG TABLET PO SCH (09:17)
[2017-09-17] MEDS: ASPIRIN EC 81 MG TABLET PO SCH (20:35)
[2017-09-18 03:57] LABS: Basophils # 0.1 10*3/uL (0.0-0.2); Basophils % 1.1 % (0.0-0.8); Eosinophils # 0.6 10*3/uL (0.0-0.87); Eosinophils % 7.4 % (0.00-10.9); Hematocrit 30.4 VOL% (42.0-52.0); Hemoglobin 9.6 GM/DL (14.0-18.0); Immature Granulocytes % 0.5 %; Immature Granulocytes Absolute 0.04 #; Lymphocytes # 1.6 10*3/uL (1.4-4.0); Lymphocytes % 19.2 % (21.2-54.2); Mean Corpuscular HGB Conc 31.6 GM/DL (32-36); Mean Corpuscular Hemoglobin 28 PG (27-34); Mean Corpuscular Volume 88.4 FL (87-102); Monocytes # 1.1 10*3/uL (0.11-0.8); Monocytes % 13.3 % (1.7-12.7); Neutrophils # 4.9 10*3/uL (1.4-7.4); Neutrophils % 58.5 % (38.7-73.9); Platelet Count 204 T/CUMM (130-400); Red Blood Count 3.44 MC/CUMM (3.8-5.5); Red Cell Distribution Width 15.9 % (9.3-17.3); White Blood Count 8.4 T/CUMM (4-12)
[2017-09-18 04:03] LABS: Calcium 8.4 MG/DL (8.5-10.1); Osmolality,Calculated 292.5 MOS/KG (273-304); Potassium 3.8 MMOL/L (3.5-5.1)
[2017-09-18] MEDS: CLINDAMYCIN INJ 600 MG in PREMIX 1 EACH IV SCH ×3 (05:57→22:57)
[2017-09-18] MEDS: INSULIN NPH 100 UNIT/ML SUBCUT SCH ×2 (09:46→17:25)
[2017-09-18] MEDS: INSULIN LISPRO 100 UNIT/ML SUBCUT SCH ×2 (09:46→17:25)
[2017-09-18] MEDS: POLYETHYLENE GLYCOL POWDER 17 GM PACK PO SCH (09:47)
[2017-09-18] MEDS: LYSINE 500 MG TABLET PO SCH (09:48)
[2017-09-18] MEDS: MULTIVITAMIN (CENTRUM) TABLET PO SCH (09:48)
[2017-09-18] MEDS: PANTOPRAZOLE 40 MG TABLET PO SCH (09:48)
[2017-09-18] MEDS: APIXABAN 2.5 MG TABLET PO SCH ×2 (09:48→20:15)
[2017-09-18] MEDS: CYANOCOBALAMIN 500 MCG TABLET PO SCH (09:48)
[2017-09-18] MEDS: TAMSULOSIN 0.4 MG CAPSULE PO SCH ×2 (09:48→20:21)
[2017-09-18] MEDS: CARVEDILOL 3.125 MG TABLET PO SCH ×2 (09:48→20:15)
[2017-09-18] MEDS: CHOLECALCIFEROL 5,000 UNIT TABLET PO SCH (09:48)
[2017-09-18] MEDS: LACOSAMIDE 50 MG TABLET PO SCH ×2 (09:48→20:15)
[2017-09-18] MEDS: LEVOTHYROXINE 100 MCG TABLET PO SCH (09:48)
[2017-09-18] MEDS: FUROSEMIDE 80 MG TABLET PO SCH (09:48)
[2017-09-18] MEDS: FLUTICASONE 50 MCG NASAL SPRAY 16 GM BOTTLE BOTH NARES SCH (10:12)
[2017-09-18] MEDS: ASPIRIN EC 81 MG TABLET PO SCH (20:15)
[2017-09-19] MEDS: CLINDAMYCIN INJ 600 MG in PREMIX 1 EACH IV SCH (06:09)
[2017-09-19] MEDS: PANTOPRAZOLE 40 MG TABLET PO SCH (08:27)
[2017-09-19] MEDS: LEVOTHYROXINE 100 MCG TABLET PO SCH (08:27)
[2017-09-19] MEDS: FUROSEMIDE 80 MG TABLET PO SCH (08:27)
[2017-09-19] MEDS: CHOLECALCIFEROL 5,000 UNIT TABLET PO SCH (08:27)
[2017-09-19] MEDS: LACOSAMIDE 50 MG TABLET PO SCH (08:27)
[2017-09-19] MEDS: APIXABAN 2.5 MG TABLET PO SCH (08:27)
[2017-09-19] MEDS: CARVEDILOL 3.125 MG TABLET PO SCH (08:27)
[2017-09-19] MEDS: CYANOCOBALAMIN 500 MCG TABLET PO SCH (08:27)
[2017-09-19] MEDS: MULTIVITAMIN (CENTRUM) TABLET PO SCH (08:27)
[2017-09-19] MEDS: POLYETHYLENE GLYCOL POWDER 17 GM PACK PO SCH (08:28)
[2017-09-19] MEDS: TAMSULOSIN 0.4 MG CAPSULE PO SCH (08:28)
[2017-09-19] MEDS: INSULIN NPH 100 UNIT/ML SUBCUT SCH (08:28)
[2017-09-19] MEDS: LYSINE 500 MG TABLET PO SCH (09:04)
[2017-09-19] MEDS: FLUTICASONE 50 MCG NASAL SPRAY 16 GM BOTTLE BOTH NARES SCH (09:05)
[2017-09-19] MEDS: INSULIN LISPRO 100 UNIT/ML SUBCUT SCH (09:33)
[2017-09-19 12:18] VITALS: BP 136/61
== END 2017-09-19 12:14 | disposition swing bed (61) | DRG 291 ==
LOC: EDUNIT# → EDBD → N.ED 21:47 → N.EDINP 09-14 00:53 → N.5E 09-14 01:55
PROVIDERS: ADMIT Family Medicine; ATTEND Family Medicine

== ENCOUNTER 2017-11-06 18:26 | Observation (INO) ==
[2017-11-06] MEDS ORDERED: FUROSEMIDE 100 MG/10 ML VIAL IV STA (19:47)
[2017-11-06 20:22] LABS: Basophils # 0.1 10*3/uL (0.0-0.2); Basophils % 0.7 % (0.0-0.8); Eosinophils # 0.4 10*3/uL (0.0-0.87); Hematocrit 31.5 VOL% (42.0-52.0); Hemoglobin 10.5 GM/DL (14.0-18.0); Lymphocytes # 1.8 10*3/uL (1.4-4.0); Mean Corpuscular HGB Conc 33.3 GM/DL (32-36); Mean Corpuscular Hemoglobin 29 PG (27-34); Mean Corpuscular Volume 85.4 FL (87-102); Mean Platelet Volume 11.3 FL (9.6-12.0); Monocytes # 1.1 10*3/uL (0.11-0.8); Neutrophils # 6.1 10*3/uL (1.4-7.4); Neutrophils % 64.3 % (38.7-73.9); Platelet Count 255 T/CUMM (130-400); Red Blood Count 3.69 MC/CUMM (3.8-5.5); Red Cell Distribution Width 14.7 % (9.3-17.3); White Blood Count 9.5 T/CUMM (4-12)
[2017-11-06 20:43] LABS: Albumin 3.3 G/DL (3.4-5.0); Bilirubin,Total 0.8 MG/DL (0.2-1.0); Calcium 9.1 MG/DL (8.5-10.1); Potassium 4.8 MMOL/L (3.5-5.1); Total Protein 8.3 G/DL (6.4-8.3)
[2017-11-06] MEDS ORDERED: ACETAMINOPHEN 325 MG TABLET PO PRN (23:29)
[2017-11-06] MEDS ORDERED: ONDANSETRON 4 MG/2 ML VIAL IV PRN (23:29)
[2017-11-07 02:37] LABS: Basophils # 0.1 10*3/uL (0.0-0.2); Basophils % 0.9 % (0.0-0.8); Eosinophils # 0.4 10*3/uL (0.0-0.87); Eosinophils % 3.9 % (0.00-10.9); Hematocrit 31.5 VOL% (42.0-52.0); Hemoglobin 10.3 GM/DL (14.0-18.0); Immature Granulocytes % 0.8 %; Immature Granulocytes Absolute 0.07 #; Lymphocytes # 1.6 10*3/uL (1.4-4.0); Lymphocytes % 17.9 % (21.2-54.2); Mean Corpuscular HGB Conc 32.7 GM/DL (32-36); Mean Corpuscular Hemoglobin 28 PG (27-34); Mean Corpuscular Volume 86.8 FL (87-102); Mean Platelet Volume 11.3 FL (9.6-12.0); Monocytes % 10.4 % (1.7-12.7); Neutrophils # 6.1 10*3/uL (1.4-7.4); Neutrophils % 66.1 % (38.7-73.9); Platelet Count 226 T/CUMM (130-400); Red Blood Count 3.63 MC/CUMM (3.8-5.5); Red Cell Distribution Width 14.4 % (9.3-17.3); White Blood Count 9.2 T/CUMM (4-12)
[2017-11-07 02:48] LABS: Troponin I 0.063 NG/ML (0.00-0.045)
[2017-11-07 02:50] LABS: Alanine Aminotransferase 16 U/L (16-61); Alkaline Phosphatase 85 U/L (45-117); Aspartate Amino Transferase 12 U/L (0-37); Bilirubin,Total < 0.39 MG/DL (0.2-1.0); Blood Urea Nitrogen 61 MG/DL (7-18); Glucose 248 MG/DL (74-106); Sodium 136 MMOL/L (136-145); Total Protein 7.3 G/DL (6.4-8.3)
[2017-11-07] MEDS ORDERED: DEXTROSE 50% 25 GM/50 ML VIAL IV PRN (06:00)
[2017-11-07] MEDS ORDERED: GLUCAGON 1 MG VIAL IM PRN (06:00)
[2017-11-07] MEDS: INSULIN LISPRO 100 UNIT/ML SUBCUT SCH ×3 (08:59→17:13)
[2017-11-07] MEDS ORDERED: PANTOPRAZOLE 40 MG TABLET PO SCH (09:00)
[2017-11-07] MEDS ORDERED: SODIUM CHLORIDE 0.9% 1,000 ML IV SCH (11:00)
[2017-11-07] MEDS ORDERED: FUROSEMIDE 80 MG TABLET PO SCH (17:00)
[2017-11-07 17:36] VITALS: BP 162/70
[2017-11-07] MEDS ORDERED: CARVEDILOL 3.125 MG TABLET PO SCH (21:00)
[2017-11-07] MEDS ORDERED: APIXABAN 2.5 MG TABLET PO SCH (21:00)
[2017-11-07] MEDS ORDERED: ASPIRIN EC 81 MG TABLET PO SCH (21:00)
== END 2017-11-07 20:08 | disposition home health service (06) ==
LOC: N.EDINP 18:26 → N.ED 18:26 → N.TELEN 22:39
PROVIDERS: ADMIT Family Medicine; ATTEND Family Medicine

== ENCOUNTER 2017-11-17 16:12 | Observation (INO) ==
[2017-11-17] MEDS ORDERED: ONDANSETRON 4 MG/2 ML VIAL IV STA (16:35)
[2017-11-17] MEDS ORDERED: levETIRAcetam 500 MG/5 ML VIAL IV ONE (16:44)
[2017-11-17 17:37] LABS: Basophils # 0.1 10*3/uL (0.0-0.2); Basophils % 0.7 % (0.0-0.8); Eosinophils # 0.5 10*3/uL (0.0-0.87); Eosinophils % 4.3 % (0.00-10.9); Hematocrit 32.9 VOL% (42.0-52.0); Hemoglobin 10.6 GM/DL (14.0-18.0); Immature Granulocytes % 0.8 %; Immature Granulocytes Absolute 0.09 #; Lymphocytes # 1.5 10*3/uL (1.4-4.0); Lymphocytes % 13.5 % (21.2-54.2); Mean Corpuscular HGB Conc 32.2 GM/DL (32-36); Mean Corpuscular Hemoglobin 28 PG (27-34); Mean Corpuscular Volume 87.5 FL (87-102); Mean Platelet Volume 11.4 FL (9.6-12.0); Monocytes # 0.9 10*3/uL (0.11-0.8); Monocytes % 7.8 % (1.7-12.7); Neutrophils # 8.1 10*3/uL (1.4-7.4); Neutrophils % 72.9 % (38.7-73.9); Platelet Count 239 T/CUMM (130-400); Red Blood Count 3.76 MC/CUMM (3.8-5.5); Red Cell Distribution Width 14.1 % (9.3-17.3); White Blood Count 11.2 T/CUMM (4-12)
[2017-11-17 17:48] LABS: PT Patient Result 10.6 SECS
[2017-11-17 17:52] LABS: Alanine Aminotransferase 18 U/L (16-61); Albumin 3.2 G/DL (3.4-5.0); Alkaline Phosphatase 93 U/L (45-117); Aspartate Amino Transferase 14 U/L (0-37); Blood Urea Nitrogen 54 MG/DL (7-18); Calcium 9.9 MG/DL (8.5-10.1); Glucose 241 MG/DL (74-106); Potassium 4.3 MMOL/L (3.5-5.1); Sodium 136 MMOL/L (136-145); Total Protein 8.2 G/DL (6.4-8.3)
[2017-11-17 17:56] LABS: Troponin I 0.051 NG/ML (0.00-0.045)
[2017-11-17 18:40] LABS: Apearance,Urine Slightly Hazy (Clear); Bacteria,Urine Occasional /HPF (Few); Bilirubin,Urine Negative (Negative); Blood, Urine Moderate mg/dL (Negative); Glucose,Urine (UA) 50 mg/dL (Negative); Hyaline Casts,Urine 1 /LPF (0-3); Ketones,Urine Negative (Negative); Nitrite,Urine Negative (Negative); Protein,Urine 100 MG/DL; RBC,Urine 32 /HPF (0-4); Urine Color Yellow (Yellow); Urine Specific Gravity 1.012 (1.001-1.035); Urine Urobilinogen < 2.0 EU/DL (0.2-1.0); WBC,Urine 1 /HPF (0-6)
[2017-11-17] MEDS ORDERED: ACETAMINOPHEN 500 MG TABLET PO PRN (18:56)
[2017-11-17] MEDS ORDERED: ONDANSETRON 4 MG/2 ML VIAL IV PRN (18:56)
[2017-11-17] MEDS: TAMSULOSIN 0.4 MG CAPSULE PO SCH (20:37)
[2017-11-17] MEDS: levETIRAcetam 500 MG TABLET PO SCH (20:38)
[2017-11-17] MEDS: APIXABAN 2.5 MG TABLET PO SCH (20:38)
[2017-11-17] MEDS: LACOSAMIDE 50 MG TABLET PO SCH (20:41)
[2017-11-18] MEDS ORDERED: GLUCAGON 1 MG VIAL IM PRN (00:40)
[2017-11-18] MEDS ORDERED: DEXTROSE 50% 25 GM/50 ML VIAL IV PRN (00:40)
[2017-11-18] MEDS ORDERED: LEVOTHYROXINE 100 MCG TABLET PO SCH (06:30)
[2017-11-18] MEDS ORDERED: ASPIRIN EC 81 MG TABLET PO SCH (09:00)
[2017-11-18] MEDS ORDERED: PANTOPRAZOLE 40 MG TABLET PO SCH (09:00)
[2017-11-18] MEDS: levETIRAcetam 500 MG TABLET PO SCH (09:21)
[2017-11-18] MEDS: APIXABAN 2.5 MG TABLET PO SCH (09:21)
[2017-11-18] MEDS: TAMSULOSIN 0.4 MG CAPSULE PO SCH (09:21)
[2017-11-18] MEDS: LACOSAMIDE 50 MG TABLET PO SCH (09:22)
[2017-11-18 10:17] LABS: Blood Urea Nitrogen 51 MG/DL (7-18); Calcium 9.2 MG/DL (8.5-10.1); Glucose 221 MG/DL (74-106); Osmolality,Calculated 290.1 MOS/KG (273-304); Potassium 4.7 MMOL/L (3.5-5.1); Sodium 135 MMOL/L (136-145)
[2017-11-18 10:18] LABS: Troponin I 0.057 NG/ML (0.00-0.045)
[2017-11-18 11:43] VITALS: BP 137/63
== END 2017-11-18 13:50 | disposition home or self-care (01) ==
LOC: EDBD → EDUNIT# → N.ED 16:12 → N.EDINP 18:55 → INTOOBSV 18:55 → N.TELEN 19:54
PROVIDERS: ADMIT Family Medicine; ATTEND Family Medicine

== ENCOUNTER 2017-11-25 15:42 | Inpatient (IN) ==
[2017-11-25 17:02] LABS: Basophils # 0.1 10*3/uL (0.0-0.2); Basophils % 0.7 % (0.0-0.8); Eosinophils # 0.4 10*3/uL (0.0-0.87); Eosinophils % 4.9 % (0.00-10.9); Hematocrit 33.1 VOL% (42.0-52.0); Hemoglobin 10.7 GM/DL (14.0-18.0); Immature Granulocytes % 0.7 %; Immature Granulocytes Absolute 0.06 #; Lymphocytes # 1.6 10*3/uL (1.4-4.0); Lymphocytes % 18.5 % (21.2-54.2); Mean Corpuscular HGB Conc 32.3 GM/DL (32-36); Mean Corpuscular Hemoglobin 28 PG (27-34); Mean Corpuscular Volume 86.9 FL (87-102); Mean Platelet Volume 11.1 FL (9.6-12.0); Monocytes # 0.8 10*3/uL (0.11-0.8); Monocytes % 9.1 % (1.7-12.7); Neutrophils # 5.9 10*3/uL (1.4-7.4); Neutrophils % 66.1 % (38.7-73.9); Platelet Count 216 T/CUMM (130-400); Red Blood Count 3.81 MC/CUMM (3.8-5.5); Red Cell Distribution Width 13.8 % (9.3-17.3); White Blood Count 8.9 T/CUMM (4-12)
[2017-11-25 17:33] LABS: Calcium 9.7 MG/DL (8.5-10.1); Potassium 4.4 MMOL/L (3.5-5.1)
[2017-11-25 17:44] LABS: Apearance,Urine CLEAR (Clear); Bilirubin,Urine Negative (Negative); Blood, Urine Small mg/dL (Negative); Glucose,Urine (UA) 50 mg/dL (Negative); Hyaline Casts,Urine 5 /LPF (0-3); Ketones,Urine Negative (Negative); Mucus,Urine Occasional /LPF (Occasional); Nitrite,Urine Negative (Negative); Protein,Urine 30 MG/DL; RBC,Urine 28 /HPF (0-4); Squamous Epithelial Cell,Urine Occasional /HPF (0-10); Urine Color Yellow (Yellow); Urine Specific Gravity 1.011 (1.001-1.035); Urine Urobilinogen < 2.0 EU/DL (0.2-1.0); WBC,Urine <1 /HPF (0-6)
[2017-11-25] MEDS ORDERED: DEXTROSE 50% 25 GM/50 ML VIAL IV PRN (18:24)
[2017-11-25] MEDS ORDERED: GLUCAGON 1 MG VIAL IM PRN (18:24)
[2017-11-25] MEDS ORDERED: ZINC OXIDE PASTE 113 GM TUBE TOP PRN (20:26)
[2017-11-25] MEDS ORDERED: ACETAMINOPHEN 325 MG TABLET PO PRN (20:39)
[2017-11-25] MEDS ORDERED: DICLOFENAC 1% GEL 100 GM TUBE TOP PRN (20:49)
[2017-11-25] MEDS: FLUTICASONE 50 MCG NASAL SPRAY 16 GM BOTTLE BOTH NARES SCH (22:36)
[2017-11-25] MEDS: LACOSAMIDE 50 MG TABLET PO SCH (22:36)
[2017-11-25] MEDS: APIXABAN 2.5 MG TABLET PO SCH (22:37)
[2017-11-25] MEDS: ASPIRIN EC 81 MG TABLET PO SCH (22:37)
[2017-11-25] MEDS: CARVEDILOL 3.125 MG TABLET PO SCH (22:38)
[2017-11-26] MEDS: MELATONIN 3 MG TABLET PO SCH ×2 (00:05→20:44)
[2017-11-26] MEDS: LEVOTHYROXINE 112 MCG TABLET PO SCH (06:33)
[2017-11-26] MEDS ORDERED: ACETAMINOPHN PO PRN (08:44)
[2017-11-26] MEDS ORDERED: DICLOFENAC 1% GEL 100 GM TUBE TOP PRN (08:44)
[2017-11-26] MEDS ORDERED: PHENYLEPH PO PRN (08:44)
[2017-11-26] MEDS ORDERED: [UNRECOGNIZED DRUG - OTHER] PO PRN (08:44)
[2017-11-26] MEDS ORDERED: GUAIFEN PO PRN (08:44)
[2017-11-26] MEDS ORDERED: [UNRECOGNIZED DRUG - OTHER] PO SCH (09:00)
[2017-11-26] MEDS ORDERED: LYSINE 1000 MG PO SCH (09:00)
[2017-11-26] MEDS ORDERED: NON-FORMULARY MEDICATION (Lacosamide [Vimpat] 100 MG) PO SCH (09:00)
[2017-11-26] MEDS ORDERED: APIXABAN 2.5 MG TABLET PO SCH (09:00)
[2017-11-26] MEDS: CYANOCOBALAMIN 500 MCG TABLET PO SCH (09:43)
[2017-11-26] MEDS: LACOSAMIDE 50 MG TABLET PO SCH ×2 (09:43→20:44)
[2017-11-26] MEDS: MULTIVITAMIN (CENTRUM) TABLET PO SCH (09:43)
[2017-11-26] MEDS: FUROSEMIDE 40 MG TABLET PO SCH (09:43)
[2017-11-26] MEDS: POLYETHYLENE GLYCOL POWDER 17 GM PACK PO SCH (09:43)
[2017-11-26] MEDS: INSULIN LISPRO 100 UNIT/ML SUBCUT SCH ×7 (09:44→20:45)
[2017-11-26] MEDS: INSULIN NPH 100 UNIT/ML SUBCUT SCH ×2 (09:44→17:39)
[2017-11-26] MEDS: TAMSULOSIN 0.4 MG CAPSULE PO SCH (09:44)
[2017-11-26] MEDS: CHOLECALCIFEROL 5,000 UNIT TABLET PO SCH (09:44)
[2017-11-26] MEDS: APIXABAN 2.5 MG TABLET PO SCH ×2 (09:44→20:44)
[2017-11-26] MEDS: FLUTICASONE 50 MCG NASAL SPRAY 16 GM BOTTLE BOTH NARES SCH ×2 (09:45→20:48)
[2017-11-26] MEDS: LYSINE 500 MG TABLET PO SCH (09:45)
[2017-11-26] MEDS: PANTOPRAZOLE 40 MG TABLET PO SCH (17:39)
[2017-11-26] MEDS: ASPIRIN EC 81 MG TABLET PO SCH (20:44)
[2017-11-26] MEDS: CARVEDILOL 3.125 MG TABLET PO SCH (20:49)
[2017-11-26] MEDS ORDERED: ZINC PO SCH (21:00)
[2017-11-26] MEDS ORDERED: NON-FORMULARY MEDICATION (Melatonin [Melatonin] 10 MG) PO SCH (21:00)
[2017-11-26] MEDS ORDERED: MAGNESIUM OXIDE PO SCH (21:00)
[2017-11-26] MEDS ORDERED: ASPIRIN EC 81 MG TABLET PO SCH (21:00)
[2017-11-26] MEDS ORDERED: CALCIUM CARBONATE PO SCH (21:00)
[2017-11-27 06:02] LABS: Basophils # 0.1 10*3/uL (0.0-0.2); Basophils % 0.7 % (0.0-0.8); Eosinophils # 0.6 10*3/uL (0.0-0.87); Eosinophils % 6.9 % (0.00-10.9); Hematocrit 27.5 VOL% (42.0-52.0); Hemoglobin 8.9 GM/DL (14.0-18.0); Immature Granulocytes % 0.5 %; Immature Granulocytes Absolute 0.04 #; Lymphocytes # 2.1 10*3/uL (1.4-4.0); Lymphocytes % 25.8 % (21.2-54.2); Mean Corpuscular HGB Conc 32.4 GM/DL (32-36); Mean Corpuscular Hemoglobin 28 PG (27-34); Mean Corpuscular Volume 86.2 FL (87-102); Monocytes # 0.8 10*3/uL (0.11-0.8); Monocytes % 9.6 % (1.7-12.7); Neutrophils # 4.6 10*3/uL (1.4-7.4); Neutrophils % 56.5 % (38.7-73.9); Platelet Count 197 T/CUMM (130-400); Red Blood Count 3.19 MC/CUMM (3.8-5.5); Red Cell Distribution Width 13.5 % (9.3-17.3); White Blood Count 8.1 T/CUMM (4-12)
[2017-11-27 06:40] LABS: Calcium 8.8 MG/DL (8.5-10.1); Free T4 (Free Thyroxine) 1.13 NG/DL (0.76-1.46); Osmolality,Calculated 288.5 MOS/KG (273-304); Potassium 3.9 MMOL/L (3.5-5.1); Thyroid Stimulating Hormone 0.975 uIU/ml (0.358-3.74)
[2017-11-27] MEDS: LEVOTHYROXINE 112 MCG TABLET PO SCH (07:03)
[2017-11-27] MEDS: POLYETHYLENE GLYCOL POWDER 17 GM PACK PO SCH (08:50)
[2017-11-27] MEDS: INSULIN NPH 100 UNIT/ML SUBCUT SCH ×2 (08:51→17:13)
[2017-11-27] MEDS: INSULIN LISPRO 100 UNIT/ML SUBCUT SCH ×5 (08:52→21:02)
[2017-11-27] MEDS: FLUTICASONE 50 MCG NASAL SPRAY 16 GM BOTTLE BOTH NARES SCH ×2 (08:53→21:04)
[2017-11-27] MEDS: LYSINE 500 MG TABLET PO SCH (08:54)
[2017-11-27] MEDS: TAMSULOSIN 0.4 MG CAPSULE PO SCH ×3 (08:55→21:04)
[2017-11-27] MEDS: MULTIVITAMIN (CENTRUM) TABLET PO SCH (08:55)
[2017-11-27] MEDS: CYANOCOBALAMIN 500 MCG TABLET PO SCH (08:56)
[2017-11-27] MEDS: CHOLECALCIFEROL 5,000 UNIT TABLET PO SCH (08:56)
[2017-11-27] MEDS: APIXABAN 2.5 MG TABLET PO SCH ×2 (08:56→21:04)
[2017-11-27] MEDS: FUROSEMIDE 40 MG TABLET PO SCH (08:56)
[2017-11-27] MEDS: LACOSAMIDE 50 MG TABLET PO SCH ×2 (08:56→21:04)
[2017-11-27] MEDS: PANTOPRAZOLE 40 MG TABLET PO SCH (16:54)
[2017-11-27] MEDS: MELATONIN 3 MG TABLET PO SCH (21:03)
[2017-11-27] MEDS: ASPIRIN EC 81 MG TABLET PO SCH (21:04)
[2017-11-27] MEDS: CARVEDILOL 3.125 MG TABLET PO SCH (21:04)
[2017-11-28 05:29] LABS: Basophils # 0.1 10*3/uL (0.0-0.2); Eosinophils # 0.5 10*3/uL (0.0-0.87); Eosinophils % 7.2 % (0.00-10.9); Hematocrit 28.8 VOL% (42.0-52.0); Hemoglobin 9.3 GM/DL (14.0-18.0); Immature Granulocytes % 0.8 %; Immature Granulocytes Absolute 0.06 #; Lymphocytes # 1.9 10*3/uL (1.4-4.0); Lymphocytes % 26.2 % (21.2-54.2); Mean Corpuscular HGB Conc 32.3 GM/DL (32-36); Mean Corpuscular Hemoglobin 28 PG (27-34); Mean Corpuscular Volume 86.2 FL (87-102); Mean Platelet Volume 11.2 FL (9.6-12.0); Monocytes # 0.7 10*3/uL (0.11-0.8); Monocytes % 10.2 % (1.7-12.7); Neutrophils # 3.9 10*3/uL (1.4-7.4); Neutrophils % 54.6 % (38.7-73.9); Platelet Count 220 T/CUMM (130-400); Red Blood Count 3.34 MC/CUMM (3.8-5.5); Red Cell Distribution Width 13.5 % (9.3-17.3); White Blood Count 7.1 T/CUMM (4-12)
[2017-11-28 05:39] LABS: Calcium 8.7 MG/DL (8.5-10.1); Osmolality,Calculated 289.4 MOS/KG (273-304); Potassium 3.8 MMOL/L (3.5-5.1)
[2017-11-28] MEDS: LEVOTHYROXINE 112 MCG TABLET PO SCH (06:07)
[2017-11-28] MEDS: INSULIN NPH 100 UNIT/ML SUBCUT SCH ×2 (07:57→16:16)
[2017-11-28] MEDS: POLYETHYLENE GLYCOL POWDER 17 GM PACK PO SCH ×2 (07:58→08:33)
[2017-11-28] MEDS: FLUTICASONE 50 MCG NASAL SPRAY 16 GM BOTTLE BOTH NARES SCH ×2 (07:59→20:45)
[2017-11-28] MEDS: APIXABAN 2.5 MG TABLET PO SCH ×2 (07:59→20:44)
[2017-11-28] MEDS: CHOLECALCIFEROL 5,000 UNIT TABLET PO SCH (07:59)
[2017-11-28] MEDS: LACOSAMIDE 50 MG TABLET PO SCH ×2 (07:59→20:45)
[2017-11-28] MEDS: CYANOCOBALAMIN 500 MCG TABLET PO SCH (07:59)
[2017-11-28] MEDS: MULTIVITAMIN (CENTRUM) TABLET PO SCH (07:59)
[2017-11-28] MEDS: FUROSEMIDE 40 MG TABLET PO SCH (07:59)
[2017-11-28] MEDS: INSULIN LISPRO 100 UNIT/ML SUBCUT SCH ×6 (07:59→22:09)
[2017-11-28] MEDS: LYSINE 500 MG TABLET PO SCH (08:00)
[2017-11-28] MEDS: TAMSULOSIN 0.4 MG CAPSULE PO SCH ×2 (08:01→20:44)
[2017-11-28] MEDS ORDERED: MAGNESIUM CITRATE 300 ML BOTTLE PO ONE (13:00)
[2017-11-28] MEDS ORDERED: TUBERCULIN SKIN TEST 0.1 ML SYRINGE INTRADERM ONE (15:08)
[2017-11-28] MEDS: PANTOPRAZOLE 40 MG TABLET PO SCH (17:16)
[2017-11-28] MEDS: CARVEDILOL 3.125 MG TABLET PO SCH (20:44)
[2017-11-28] MEDS: ASPIRIN EC 81 MG TABLET PO SCH (20:44)
[2017-11-28] MEDS: MELATONIN 3 MG TABLET PO SCH (20:44)
[2017-11-29] MEDS: LEVOTHYROXINE 112 MCG TABLET PO SCH (06:12)
[2017-11-29] MEDS: INSULIN LISPRO 100 UNIT/ML SUBCUT SCH ×6 (07:51→21:23)
[2017-11-29] MEDS: LYSINE 500 MG TABLET PO SCH (09:39)
[2017-11-29] MEDS: TAMSULOSIN 0.4 MG CAPSULE PO SCH ×2 (09:39→20:53)
[2017-11-29] MEDS: APIXABAN 2.5 MG TABLET PO SCH ×2 (09:39→20:53)
[2017-11-29] MEDS: INSULIN NPH 100 UNIT/ML SUBCUT SCH ×2 (09:39→17:18)
[2017-11-29] MEDS: POLYETHYLENE GLYCOL POWDER 17 GM PACK PO SCH (09:39)
[2017-11-29] MEDS: LACOSAMIDE 50 MG TABLET PO SCH ×2 (09:40→20:53)
[2017-11-29] MEDS: MULTIVITAMIN (CENTRUM) TABLET PO SCH (09:40)
[2017-11-29] MEDS: CHOLECALCIFEROL 5,000 UNIT TABLET PO SCH (09:40)
[2017-11-29] MEDS: CYANOCOBALAMIN 500 MCG TABLET PO SCH (09:40)
[2017-11-29] MEDS: FUROSEMIDE 40 MG TABLET PO SCH (09:40)
[2017-11-29] MEDS: FLUTICASONE 50 MCG NASAL SPRAY 16 GM BOTTLE BOTH NARES SCH ×2 (09:40→20:53)
[2017-11-29] MEDS: PANTOPRAZOLE 40 MG TABLET PO SCH (17:18)
[2017-11-29] MEDS: CARVEDILOL 3.125 MG TABLET PO SCH (20:53)
[2017-11-29] MEDS: MELATONIN 3 MG TABLET PO SCH (20:53)
[2017-11-29] MEDS: ASPIRIN EC 81 MG TABLET PO SCH (20:53)
[2017-11-30] MEDS: LEVOTHYROXINE 112 MCG TABLET PO SCH (06:15)
[2017-11-30 07:22] VITALS: BP 139/73
[2017-11-30] MEDS: INSULIN LISPRO 100 UNIT/ML SUBCUT SCH ×2 (09:27→10:28)
[2017-11-30] MEDS: CHOLECALCIFEROL 5,000 UNIT TABLET PO SCH (10:27)
[2017-11-30] MEDS: FUROSEMIDE 40 MG TABLET PO SCH (10:27)
[2017-11-30] MEDS: CYANOCOBALAMIN 500 MCG TABLET PO SCH (10:27)
[2017-11-30] MEDS: LYSINE 500 MG TABLET PO SCH (10:27)
[2017-11-30] MEDS: MULTIVITAMIN (CENTRUM) TABLET PO SCH (10:27)
[2017-11-30] MEDS: LACOSAMIDE 50 MG TABLET PO SCH (10:27)
[2017-11-30] MEDS: APIXABAN 2.5 MG TABLET PO SCH (10:27)
[2017-11-30] MEDS: FLUTICASONE 50 MCG NASAL SPRAY 16 GM BOTTLE BOTH NARES SCH (10:28)
[2017-11-30] MEDS: POLYETHYLENE GLYCOL POWDER 17 GM PACK PO SCH (10:28)
[2017-11-30] MEDS: INSULIN NPH 100 UNIT/ML SUBCUT SCH (10:59)
[2017-11-30] MEDS: TAMSULOSIN 0.4 MG CAPSULE PO SCH (10:59)
== END 2017-11-30 11:16 | DRG 389 ==
LOC: EDUNIT# → EDBD → N.ED 15:42 → N.EDINP 18:23 → N.2E 19:46
PROVIDERS: ADMIT Family Medicine; ATTEND Family Medicine

== ENCOUNTER 2018-02-09 22:43 | Observation (INO) ==
[2018-02-09] MEDS ORDERED: ONDANSETRON 4 MG/2 ML VIAL IV STA (23:05)
[2018-02-10] LABS: Apearance,Urine CLEAR (Clear); Bilirubin,Urine Negative (Negative); Blood, Urine Small mg/dL (Negative); Glucose,Urine (UA) Negative (Negative); Ketones,Urine Negative (Negative); Nitrite,Urine Negative (Negative); Protein,Urine Negative; RBC,Urine 5 /HPF (0-4); Urine Color Yellow (Yellow); Urine Urobilinogen < 2.0 EU/DL (0.2-1.0); WBC,Urine <1 /HPF (0-6)
[2018-02-10 00:04] LABS: Basophils # 0.1 10*3/uL (0.0-0.2); Basophils % 0.8 % (0.0-0.8); Eosinophils # 0.4 10*3/uL (0.0-0.87); Eosinophils % 4.1 % (0.00-10.9); Hematocrit 27.6 VOL% (42.0-52.0); Hemoglobin 8.7 GM/DL (14.0-18.0); Immature Granulocytes % 0.7 %; Immature Granulocytes Absolute 0.07 #; Lymphocytes # 1.3 10*3/uL (1.4-4.0); Lymphocytes % 12.5 % (21.2-54.2); Mean Corpuscular HGB Conc 31.5 GM/DL (32-36); Mean Corpuscular Hemoglobin 27 PG (27-34); Mean Corpuscular Volume 84.4 FL (87-102); Monocytes % 9.5 % (1.7-12.7); Neutrophils # 7.5 10*3/uL (1.4-7.4); Neutrophils % 72.4 % (38.7-73.9); Platelet Count 305 T/CUMM (130-400); Red Blood Count 3.27 MC/CUMM (3.8-5.5); Red Cell Distribution Width 14.9 % (9.3-17.3); White Blood Count 10.4 T/CUMM (4-12)
[2018-02-10 00:26] LABS: Alanine Aminotransferase 15 U/L (16-61); Albumin 3.4 G/DL (3.4-5.0); Alkaline Phosphatase 103 U/L (45-117); Amylase 66 U/L (25-115); Aspartate Amino Transferase 12 U/L (0-37); Bilirubin,Total < 0.39 MG/DL (0.2-1.0); Blood Urea Nitrogen 75 MG/DL (7-18); Calcium 10.5 MG/DL (8.5-10.1); Glucose 149 MG/DL (74-106); Potassium 4.1 MMOL/L (3.5-5.1); Sodium 136 MMOL/L (136-145)
[2018-02-10] MEDS ORDERED: ONDANSETRON 4 MG/2 ML VIAL IV PRN (01:39)
[2018-02-10] MEDS ORDERED: ACETAMINOPHEN 325 MG TABLET PO PRN ×2 (01:39)
[2018-02-10] MEDS ORDERED: GLUCAGON 1 MG VIAL IM PRN (01:39)
[2018-02-10] MEDS ORDERED: ZINC OXIDE PASTE 113 GM TUBE TOP PRN (01:39)
[2018-02-10] MEDS ORDERED: DICLOFENAC 1% GEL 100 GM TUBE TOP PRN (01:39)
[2018-02-10] MEDS ORDERED: DEXTROSE 50% 25 GM/50 ML VIAL IV PRN (01:39)
[2018-02-10] MEDS ORDERED: SODIUM PHOSPHATE ENEMA 133 ML BOTTLE RECTAL PRN (01:39)
[2018-02-10] MEDS: LEVOTHYROXINE 112 MCG TABLET PO SCH (05:49)
[2018-02-10] MEDS: SODIUM CHLORIDE 0.9% 1,000 ML IV SCH ×2 (05:49→16:43)
[2018-02-10 06:02] LABS: Basophils # 0.1 10*3/uL (0.0-0.2); Basophils % 0.8 % (0.0-0.8); Eosinophils # 0.4 10*3/uL (0.0-0.87); Eosinophils % 4.1 % (0.00-10.9); Hematocrit 27.4 VOL% (42.0-52.0); Hemoglobin 8.5 GM/DL (14.0-18.0); Immature Granulocytes % 0.6 %; Immature Granulocytes Absolute 0.06 #; Lymphocytes # 1.5 10*3/uL (1.4-4.0); Lymphocytes % 16.1 % (21.2-54.2); Mean Corpuscular Hemoglobin 26 PG (27-34); Mean Corpuscular Volume 84.6 FL (87-102); Mean Platelet Volume 11.4 FL (9.6-12.0); Monocytes # 1.1 10*3/uL (0.11-0.8); Monocytes % 12.1 % (1.7-12.7); Neutrophils # 6.2 10*3/uL (1.4-7.4); Neutrophils % 66.3 % (38.7-73.9); Platelet Count 251 T/CUMM (130-400); Red Blood Count 3.24 MC/CUMM (3.8-5.5); Red Cell Distribution Width 14.8 % (9.3-17.3); White Blood Count 9.4 T/CUMM (4-12)
[2018-02-10 06:25] LABS: Albumin 2.9 G/DL (3.4-5.0); Bilirubin,Total 0.8 MG/DL (0.2-1.0); Calcium 10.2 MG/DL (8.5-10.1); Osmolality,Calculated 301.3 MOS/KG (273-304); Total Protein 7.7 G/DL (6.4-8.3)
[2018-02-10] MEDS ORDERED: INSULIN REGULAR 100 UNIT/ML SUBCUT SCH (07:30)
[2018-02-10] MEDS ORDERED: LACTULOSE 20 GM/30 ML UDCUP PO ONE (07:35)
[2018-02-10] MEDS ORDERED: MAGNESIUM HYDROXIDE SUSP 30 ML UDCUP PO ONE ×2 (07:35→12:00)
[2018-02-10] MEDS: INSULIN LISPRO 100 UNIT/ML SUBCUT SCH ×6 (08:53→22:44)
[2018-02-10] MEDS: INSULIN NPH 100 UNIT/ML SUBCUT SCH ×2 (08:54→16:42)
[2018-02-10] MEDS ORDERED: PANTOPRAZOLE 40 MG TABLET PO SCH ×2 (09:00→16:30)
[2018-02-10] MEDS: CHOLECALCIFEROL 5,000 UNIT TABLET PO SCH (10:43)
[2018-02-10] MEDS: LYSINE 500 MG TABLET PO SCH (10:43)
[2018-02-10] MEDS: FUROSEMIDE 40 MG TABLET PO SCH (10:43)
[2018-02-10] MEDS: metOLazone 2.5 MG TABLET PO SCH (10:44)
[2018-02-10] MEDS: LACOSAMIDE 50 MG TABLET PO SCH ×2 (10:44→22:43)
[2018-02-10] MEDS: DOCUSATE SODIUM 100 MG CAPSULE PO SCH ×2 (10:44→22:43)
[2018-02-10] MEDS: CYANOCOBALAMIN 500 MCG TABLET PO SCH (10:44)
[2018-02-10] MEDS: TAMSULOSIN 0.4 MG CAPSULE PO SCH (10:44)
[2018-02-10] MEDS: FLUTICASONE 50 MCG NASAL SPRAY 16 GM BOTTLE BOTH NARES SCH ×2 (10:44→22:42)
[2018-02-10] MEDS: MULTIVITAMIN (CENTRUM) TABLET PO SCH (10:44)
[2018-02-10] MEDS: POLYETHYLENE GLYCOL POWDER 17 GM PACK PO SCH (10:44)
[2018-02-10] MEDS: APIXABAN 2.5 MG TABLET PO SCH ×2 (10:44→22:44)
[2018-02-10] MEDS: LINACLOTIDE 145 MCG CAPSULE PO SCH (18:55)
[2018-02-10] MEDS ORDERED: CARVEDILOL 3.125 MG TABLET PO SCH (21:00)
[2018-02-10] MEDS ORDERED: MELATONIN 3 MG TABLET PO SCH (21:00)
[2018-02-10] MEDS ORDERED: ASPIRIN EC 81 MG TABLET PO SCH (21:00)
[2018-02-10] MEDS: LACTULOSE 20 GM/30 ML UDCUP PO SCH (22:43)
[2018-02-11] MEDS: SODIUM CHLORIDE 0.9% 1,000 ML IV SCH (05:09)
[2018-02-11] MEDS: LINACLOTIDE 145 MCG CAPSULE PO SCH (07:07)
[2018-02-11] MEDS: LEVOTHYROXINE 112 MCG TABLET PO SCH (07:08)
[2018-02-11] MEDS: INSULIN LISPRO 100 UNIT/ML SUBCUT SCH ×3 (07:52→11:34)
[2018-02-11 09:01] LABS: Basophils % 0.6 % (0.0-0.8); Eosinophils # 0.4 10*3/uL (0.0-0.87); Eosinophils % 5.5 % (0.00-10.9); Hematocrit 25.6 VOL% (42.0-52.0); Hemoglobin 7.7 GM/DL (14.0-18.0); Immature Granulocytes % 0.6 %; Immature Granulocytes Absolute 0.04 #; Lymphocytes # 1.5 10*3/uL (1.4-4.0); Lymphocytes % 21.2 % (21.2-54.2); Mean Corpuscular HGB Conc 30.1 GM/DL (32-36); Mean Corpuscular Hemoglobin 26 PG (27-34); Mean Corpuscular Volume 86.8 FL (87-102); Monocytes # 0.9 10*3/uL (0.11-0.8); Monocytes % 12.1 % (1.7-12.7); Neutrophils # 4.2 10*3/uL (1.4-7.4); Platelet Count 224 T/CUMM (130-400); Red Blood Count 2.95 MC/CUMM (3.8-5.5)
[2018-02-11] MEDS: INSULIN NPH 100 UNIT/ML SUBCUT SCH (09:11)
[2018-02-11] MEDS: TAMSULOSIN 0.4 MG CAPSULE PO SCH (09:12)
[2018-02-11] MEDS: FLUTICASONE 50 MCG NASAL SPRAY 16 GM BOTTLE BOTH NARES SCH (09:12)
[2018-02-11] MEDS: CHOLECALCIFEROL 5,000 UNIT TABLET PO SCH (09:12)
[2018-02-11] MEDS: CYANOCOBALAMIN 500 MCG TABLET PO SCH (09:12)
[2018-02-11] MEDS: LYSINE 500 MG TABLET PO SCH (09:12)
[2018-02-11] MEDS: MULTIVITAMIN (CENTRUM) TABLET PO SCH (09:12)
[2018-02-11] MEDS: POLYETHYLENE GLYCOL POWDER 17 GM PACK PO SCH (09:12)
[2018-02-11] MEDS: DOCUSATE SODIUM 100 MG CAPSULE PO SCH (09:12)
[2018-02-11] MEDS: APIXABAN 2.5 MG TABLET PO SCH (09:13)
[2018-02-11] MEDS: FUROSEMIDE 40 MG TABLET PO SCH (09:13)
[2018-02-11] MEDS: LACOSAMIDE 50 MG TABLET PO SCH (09:13)
[2018-02-11] MEDS: LACTULOSE 20 GM/30 ML UDCUP PO SCH (09:13)
[2018-02-11] MEDS: metOLazone 2.5 MG TABLET PO SCH (09:13)
[2018-02-11 09:20] LABS: Calcium 8.8 MG/DL (8.5-10.1); Osmolality,Calculated 292.7 MOS/KG (273-304)
[2018-02-11 11:23] VITALS: BP 109/48
[2018-02-11] MEDS ORDERED: FUROSEMIDE 40 MG/4 ML VIAL IV PRN (12:07)
[2018-02-11] MEDS ORDERED: SODIUM CHLORIDE 0.9% 1,000 ML IV PRN (12:07)
== END 2018-02-11 15:43 | disposition left against medical advice (07) ==
LOC: EDUNIT# → EDBD → N.ED 22:43 → N.EDINP 02-10 00:50 → INTOOBSV 02-10 00:50 → N.2E 02-10 01:22
PROVIDERS: ADMIT Family Medicine; ATTEND Family Medicine

== ENCOUNTER 2018-02-16 12:34 | Observation (INO) ==
[2018-02-16] MEDS ORDERED: ONDANSETRON 4 MG/2 ML VIAL IV STA (13:05)
[2018-02-16] MEDS ORDERED: SODIUM CHLORIDE 0.9% 500 ML IV STA (13:05)
[2018-02-16 13:14] LABS: Basophils # 0.1 10*3/uL (0.0-0.2); Basophils % 1.1 % (0.0-0.8); Eosinophils # 0.5 10*3/uL (0.0-0.87); Eosinophils % 6.2 % (0.00-10.9); Hematocrit 31.5 VOL% (42.0-52.0); Hemoglobin 9.9 GM/DL (14.0-18.0); Immature Granulocytes % 0.6 %; Immature Granulocytes Absolute 0.05 #; Lymphocytes # 1.6 10*3/uL (1.4-4.0); Lymphocytes % 17.9 % (21.2-54.2); Mean Corpuscular HGB Conc 31.4 GM/DL (32-36); Mean Corpuscular Hemoglobin 27 PG (27-34); Mean Corpuscular Volume 84.2 FL (87-102); Mean Platelet Volume 10.8 FL (9.6-12.0); Monocytes # 0.9 10*3/uL (0.11-0.8); Monocytes % 9.8 % (1.7-12.7); Neutrophils # 5.6 10*3/uL (1.4-7.4); Neutrophils % 64.4 % (38.7-73.9); Platelet Count 274 T/CUMM (130-400); Red Blood Count 3.74 MC/CUMM (3.8-5.5); Red Cell Distribution Width 14.9 % (9.3-17.3); White Blood Count 8.8 T/CUMM (4-12)
[2018-02-16 13:32] LABS: Lactic Acid 1.9 MMOL/L (0.4-2.0)
[2018-02-16 13:40] LABS: Albumin 3.4 G/DL (3.4-5.0); Bilirubin,Total 0.4 MG/DL (0.2-1.0); Calcium 9.6 MG/DL (8.5-10.1); Osmolality,Calculated 291.8 MOS/KG (273-304); Potassium 4.3 MMOL/L (3.5-5.1); Total Protein 8.6 G/DL (6.4-8.3)
[2018-02-16 15:43] LABS: Apearance,Urine CLEAR (Clear); Bacteria,Urine Occasional /HPF (Few); Bilirubin,Urine Negative (Negative); Blood, Urine Negative (Negative); Glucose,Urine (UA) Negative (Negative); Hyaline Casts,Urine 1 /LPF (0-3); Ketones,Urine Negative (Negative); Mucus,Urine Occasional /LPF (Occasional); Nitrite,Urine Negative (Negative); Protein,Urine 30 MG/DL; RBC,Urine 7 /HPF (0-4); Squamous Epithelial Cell,Urine Occasional /HPF (0-10); Urine Color Yellow (Yellow); Urine Specific Gravity 1.014 (1.001-1.035); Urine Urobilinogen < 2.0 EU/DL (0.2-1.0); WBC,Urine 1 /HPF (0-6)
[2018-02-16] MEDS ORDERED: DEXTROSE 50% 25 GM/50 ML SYRINGE IV PRN (16:18)
[2018-02-16] MEDS ORDERED: ACETAMINOPHEN 325 MG TABLET PO PRN ×2 (16:18)
[2018-02-16] MEDS ORDERED: LACTULOSE 20 GM/30 ML UDCUP PO PRN (16:18)
[2018-02-16] MEDS ORDERED: DICLOFENAC 1% GEL 100 GM TUBE TOP PRN (16:18)
[2018-02-16] MEDS ORDERED: MORPHINE 4 MG/1 ML VIAL IV PRN (16:18)
[2018-02-16] MEDS ORDERED: MAG OX PO SCH (16:18)
[2018-02-16] MEDS: SODIUM CHLORIDE 0.9% 1,000 ML IV SCH (16:18)
[2018-02-16] MEDS ORDERED: CALCIUM CARB PO SCH (16:18)
[2018-02-16] MEDS ORDERED: ZINC SULF PO SCH (16:18)
[2018-02-16] MEDS ORDERED: ZINC OXIDE PASTE 113 GM TUBE TOP PRN (16:18)
[2018-02-16] MEDS ORDERED: ONDANSETRON 4 MG/2 ML VIAL IV PRN (16:18)
[2018-02-16] MEDS ORDERED: GLUCAGON 1 MG VIAL IM PRN (16:18)
[2018-02-16] MEDS ORDERED: PANTOPRAZOLE 40 MG TABLET PO SCH (16:30)
[2018-02-16] MEDS ORDERED: INFLUENZA VIRUS VACCINE 0.5 ML SYRINGE IM ONE (16:35)
[2018-02-16] MEDS: INSULIN REGULAR 100 UNIT/ML SUBCUT SCH (17:53)
[2018-02-16] MEDS: INSULIN NPH 100 UNIT/ML SUBCUT SCH (19:54)
[2018-02-16] MEDS: INSULIN LISPRO 100 UNIT/ML SUBCUT SCH (19:54)
[2018-02-16 20:26] LABS: Troponin I 0.107 NG/ML (0.00-0.045)
[2018-02-16] MEDS ORDERED: ASPIRIN EC 81 MG TABLET PO SCH (21:00)
[2018-02-16] MEDS ORDERED: MELATONIN 3 MG TABLET PO SCH (21:00)
[2018-02-16] MEDS ORDERED: CARVEDILOL 3.125 MG TABLET PO SCH (21:00)
[2018-02-16] MEDS: DOCUSATE SODIUM 100 MG CAPSULE PO SCH (21:57)
[2018-02-16] MEDS: APIXABAN 2.5 MG TABLET PO SCH (21:57)
[2018-02-16] MEDS: LACOSAMIDE 50 MG TABLET PO SCH (21:57)
[2018-02-16] MEDS: FLUTICASONE 50 MCG NASAL SPRAY 16 GM BOTTLE BOTH NARES SCH (22:01)
[2018-02-17] MEDS: INSULIN REGULAR 100 UNIT/ML SUBCUT SCH ×3 (01:19→12:37)
[2018-02-17 05:17] LABS: Albumin 2.5 G/DL (3.4-5.0); Bilirubin,Total 0.4 MG/DL (0.2-1.0); Calcium 8.3 MG/DL (8.5-10.1); Osmolality,Calculated 298.3 MOS/KG (273-304); Total Protein 6.9 G/DL (6.4-8.3)
[2018-02-17] MEDS: SODIUM CHLORIDE 0.9% 1,000 ML IV SCH (06:07)
[2018-02-17] MEDS ORDERED: LEVOTHYROXINE 112 MCG TABLET PO SCH (07:00)
[2018-02-17 07:23] LABS: Basophils # 0.1 10*3/uL (0.0-0.2); Basophils % 1.5 % (0.0-0.8); Eosinophils # 0.6 10*3/uL (0.0-0.87); Eosinophils % 9.2 % (0.00-10.9); Hematocrit 27.3 VOL% (42.0-52.0); Hemoglobin 8.6 GM/DL (14.0-18.0); Immature Granulocytes % 0.7 %; Immature Granulocytes Absolute 0.04 #; Lymphocytes # 1.6 10*3/uL (1.4-4.0); Lymphocytes % 26.2 % (21.2-54.2); Mean Corpuscular HGB Conc 31.5 GM/DL (32-36); Mean Corpuscular Hemoglobin 27 PG (27-34); Mean Corpuscular Volume 85.6 FL (87-102); Mean Platelet Volume 10.8 FL (9.6-12.0); Monocytes # 0.7 10*3/uL (0.11-0.8); Neutrophils # 3.1 10*3/uL (1.4-7.4); Neutrophils % 50.4 % (38.7-73.9); Platelet Count 224 T/CUMM (130-400); Red Blood Count 3.19 MC/CUMM (3.8-5.5); Red Cell Distribution Width 14.8 % (9.3-17.3); White Blood Count 6.1 T/CUMM (4-12)
[2018-02-17] MEDS: INSULIN LISPRO 100 UNIT/ML SUBCUT SCH (08:37)
[2018-02-17] MEDS: INSULIN NPH 100 UNIT/ML SUBCUT SCH (08:38)
[2018-02-17] MEDS: LACOSAMIDE 50 MG TABLET PO SCH (08:39)
[2018-02-17] MEDS: APIXABAN 2.5 MG TABLET PO SCH (08:39)
[2018-02-17] MEDS: DOCUSATE SODIUM 100 MG CAPSULE PO SCH (08:39)
[2018-02-17] MEDS: FLUTICASONE 50 MCG NASAL SPRAY 16 GM BOTTLE BOTH NARES SCH (08:43)
[2018-02-17] MEDS ORDERED: LYSINE 1000 MG PO SCH (09:00)
[2018-02-17] MEDS ORDERED: FUROSEMIDE 40 MG TABLET PO SCH (09:00)
[2018-02-17] MEDS ORDERED: TAMSULOSIN 0.4 MG CAPSULE PO SCH (09:00)
[2018-02-17] MEDS ORDERED: PANTOPRAZOLE 40 MG TABLET PO SCH (09:00)
[2018-02-17] MEDS ORDERED: CHOLECALCIFEROL 5,000 UNIT TABLET PO SCH (09:00)
[2018-02-17] MEDS ORDERED: MULTIVITAMIN (CENTRUM) TABLET PO SCH (09:00)
[2018-02-17] MEDS ORDERED: metOLazone 2.5 MG TABLET PO SCH (09:00)
[2018-02-17] MEDS ORDERED: CYANOCOBALAMIN 500 MCG TABLET PO SCH (09:00)
[2018-02-17] MEDS ORDERED: POLYETHYLENE GLYCOL POWDER 17 GM PACK PO SCH (09:00)
[2018-02-17 13:09] VITALS: BP 100/47
== END 2018-02-17 15:40 | disposition home health service (06) ==
LOC: EDUNIT# → EDBD → N.ED 12:34 → N.EDINP 12:34 → N.2W 15:15 → N.TELES 17:21
PROVIDERS: ADMIT Family Medicine; ATTEND Family Medicine

== ENCOUNTER 2018-02-27 11:54 | Inpatient (IN) ==
[2018-02-27] MEDS ORDERED: SODIUM CHLORIDE 0.9% 500 ML IV STA (12:23)
[2018-02-27] MEDS ORDERED: levETIRAcetam 500 MG/5 ML VIAL IV ONE (12:47)
[2018-02-27 13:01] LABS: Basophils # 0.1 10*3/uL (0.0-0.2); Basophils % 0.8 % (0.0-0.8); Eosinophils # 0.5 10*3/uL (0.0-0.87); Eosinophils % 4.2 % (0.00-10.9); Hematocrit 32.9 VOL% (42.0-52.0); Hemoglobin 10.2 GM/DL (14.0-18.0); Immature Granulocytes % 0.5 %; Immature Granulocytes Absolute 0.05 #; Lymphocytes # 1.2 10*3/uL (1.4-4.0); Lymphocytes % 11.5 % (21.2-54.2); Mean Corpuscular Hemoglobin 26 PG (27-34); Mean Corpuscular Volume 83.1 FL (87-102); Mean Platelet Volume 10.9 FL (9.6-12.0); Monocytes # 0.8 10*3/uL (0.11-0.8); Monocytes % 7.8 % (1.7-12.7); Neutrophils # 8.1 10*3/uL (1.4-7.4); Neutrophils % 75.2 % (38.7-73.9); Platelet Count 288 T/CUMM (130-400); Red Blood Count 3.96 MC/CUMM (3.8-5.5); Red Cell Distribution Width 14.5 % (9.3-17.3); White Blood Count 10.8 T/CUMM (4-12)
[2018-02-27 13:22] LABS: Alanine Aminotransferase 17 U/L (16-61); Albumin 3.4 G/DL (3.4-5.0); Alkaline Phosphatase 102 U/L (45-117); Aspartate Amino Transferase 20 U/L (0-37); Blood Urea Nitrogen 78 MG/DL (7-18); Calcium 11.5 MG/DL (8.5-10.1); Total Protein 8.8 G/DL (6.4-8.3)
[2018-02-27 13:23] LABS: Glucose 242 MG/DL (74-106); Osmolality,Calculated 296.4 MOS/KG (273-304); Potassium 4.1 MMOL/L (3.5-5.1); Sodium 133 MMOL/L (136-145)
[2018-02-27 14:17] LABS: Troponin I 0.091 NG/ML (0.00-0.045)
[2018-02-27] MEDS ORDERED: ONDANSETRON 4 MG/2 ML VIAL IV PRN (14:41)
[2018-02-27] MEDS ORDERED: PROMETHAZINE 25 MG/1 ML VIAL IM PRN (14:41)
[2018-02-27] MEDS ORDERED: DICLOFENAC 1% GEL 100 GM TUBE TOP PRN (14:46)
[2018-02-27] MEDS ORDERED: ALBUTEROL 2.5 MG/3 ML NEB RESP TX PRN (14:46)
[2018-02-27] MEDS ORDERED: ZINC OXIDE PASTE 113 GM TUBE TOP PRN (14:46)
[2018-02-27] MEDS ORDERED: ACETAMINOPHEN 325 MG TABLET PO PRN (14:46)
[2018-02-27] MEDS ORDERED: DEXTROSE 50% 25 GM/50 ML VIAL IV PRN (15:33)
[2018-02-27] MEDS ORDERED: GLUCAGON 1 MG VIAL IM PRN (15:33)
[2018-02-27] MEDS: PANTOPRAZOLE 40 MG TABLET PO SCH (17:51)
[2018-02-27] MEDS: INSULIN LISPRO 100 UNIT/ML SUBCUT SCH ×3 (18:13→21:28)
[2018-02-27] MEDS: SODIUM CHLORIDE 0.9% 1,000 ML IV SCH (18:13)
[2018-02-27] MEDS: INSULIN NPH 100 UNIT/ML SUBCUT SCH (18:28)
[2018-02-27 19:28] LABS: Barbiturates Screen,Urine Negative (Negative); Benzodiazepines Screen,Urine Positive (Negative); Cannabinoid Screen,Urine Negative (Negative); Opiate Screen,Urine Negative (Negative); Phencyclidine Screen,Urine Negative (Negative)
[2018-02-27 19:38] LABS: Apearance,Urine Slightly Hazy (Clear); Bilirubin,Urine Negative (Negative); Blood, Urine Negative (Negative); Glucose,Urine (UA) Negative (Negative); Hyaline Casts,Urine 4 /LPF (0-3); Ketones,Urine Negative (Negative); Mucus,Urine Occasional /LPF (Occasional); Nitrite,Urine Negative (Negative); Protein,Urine 30 MG/DL; RBC,Urine 1 /HPF (0-4); Squamous Epithelial Cell,Urine Occasional /HPF (0-10); Urine Color Yellow (Yellow); Urine Specific Gravity 1.014 (1.001-1.035); Urine Urobilinogen < 2.0 EU/DL (0.2-1.0); WBC,Urine 4 /HPF (0-6)
[2018-02-27] MEDS: FLUTICASONE 50 MCG NASAL SPRAY 16 GM BOTTLE BOTH NARES SCH (21:29)
[2018-02-27] MEDS: DEXTROMETHORPHAN ER 6 MG/ML 90 ML/BOTTLE PO SCH (21:32)
[2018-02-27] MEDS: APIXABAN 2.5 MG TABLET PO SCH (21:32)
[2018-02-27] MEDS: LACOSAMIDE 50 MG TABLET PO SCH (21:33)
[2018-02-27] MEDS: MELATONIN 3 MG TABLET PO SCH (21:33)
[2018-02-27] MEDS: ASPIRIN EC 81 MG TABLET PO SCH (21:45)
[2018-02-27] MEDS: CARVEDILOL 3.125 MG TABLET PO SCH (21:45)
[2018-02-28] MEDS: SODIUM CHLORIDE 0.9% 1,000 ML IV SCH ×3 (01:33→20:59)
[2018-02-28 05:32] LABS: Albumin 3.1 G/DL (3.4-5.0); Bilirubin,Total 0.6 MG/DL (0.2-1.0); Calcium 10.3 MG/DL (8.5-10.1); Osmolality,Calculated 294.5 MOS/KG (273-304); Potassium 3.7 MMOL/L (3.5-5.1); Risk Ratio 6.46; Total Protein 8.3 G/DL (6.4-8.3); VLDL CHOLESTEROL 39.6 MG/DL
[2018-02-28 05:37] LABS: Basophils # 0.1 10*3/uL (0.0-0.2); Basophils % 0.9 % (0.0-0.8); Eosinophils # 0.6 10*3/uL (0.0-0.87); Eosinophils % 9.3 % (0.00-10.9); Hematocrit 32.4 VOL% (42.0-52.0); Hemoglobin 9.9 GM/DL (14.0-18.0); Immature Granulocytes % 0.3 %; Immature Granulocytes Absolute 0.02 #; Lymphocytes # 1.3 10*3/uL (1.4-4.0); Lymphocytes % 20.3 % (21.2-54.2); Mean Corpuscular HGB Conc 30.6 GM/DL (32-36); Mean Corpuscular Hemoglobin 25 PG (27-34); Mean Corpuscular Volume 83.3 FL (87-102); Mean Platelet Volume 11.2 FL (9.6-12.0); Monocytes # 0.6 10*3/uL (0.11-0.8); Monocytes % 9.4 % (1.7-12.7); Neutrophils # 3.9 10*3/uL (1.4-7.4); Neutrophils % 59.8 % (38.7-73.9); Platelet Count 280 T/CUMM (130-400); Red Blood Count 3.89 MC/CUMM (3.8-5.5); Red Cell Distribution Width 14.5 % (9.3-17.3); White Blood Count 6.6 T/CUMM (4-12)
[2018-02-28] MEDS: LEVOTHYROXINE 112 MCG TABLET PO SCH ×2 (06:00→10:32)
[2018-02-28 06:29] LABS: Hypochromasia Slight; Platelet Estimate Normal; Polychromasia Few
[2018-02-28] MEDS ORDERED: PANTOPRAZOLE 40 MG TABLET PO SCH (09:00)
[2018-02-28] MEDS ORDERED: FUROSEMIDE 40 MG TABLET PO SCH (09:00)
[2018-02-28] MEDS ORDERED: metOLazone 2.5 MG TABLET PO SCH (09:00)
[2018-02-28] MEDS: DEXTROMETHORPHAN ER 6 MG/ML 90 ML/BOTTLE PO SCH ×2 (10:30→21:00)
[2018-02-28] MEDS: FLUTICASONE 50 MCG NASAL SPRAY 16 GM BOTTLE BOTH NARES SCH ×2 (10:30→20:45)
[2018-02-28] MEDS: LACOSAMIDE 50 MG TABLET PO SCH ×2 (10:31→20:45)
[2018-02-28] MEDS: CYANOCOBALAMIN 500 MCG TABLET PO SCH (10:31)
[2018-02-28] MEDS: CHOLECALCIFEROL 5,000 UNIT TABLET PO SCH (10:32)
[2018-02-28] MEDS: MULTIVITAMIN (CENTRUM) TABLET PO SCH (10:32)
[2018-02-28] MEDS: LYSINE 500 MG TABLET PO SCH (10:32)
[2018-02-28] MEDS: TAMSULOSIN 0.4 MG CAPSULE PO SCH (10:33)
[2018-02-28] MEDS: DOCUSATE SODIUM 100 MG CAPSULE PO SCH (10:33)
[2018-02-28] MEDS: POLYETHYLENE GLYCOL POWDER 17 GM PACK PO SCH (10:34)
[2018-02-28] MEDS: INSULIN NPH 100 UNIT/ML SUBCUT SCH ×2 (10:35→18:08)
[2018-02-28] MEDS: INSULIN LISPRO 100 UNIT/ML SUBCUT SCH ×6 (10:38→20:46)
[2018-02-28] MEDS: LOVASTATIN 20 MG TABLET PO SCH ×3 (10:42→18:10)
[2018-02-28] MEDS: APIXABAN 2.5 MG TABLET PO SCH ×2 (10:42→20:45)
[2018-02-28] MEDS ORDERED: GLUCAGON 1 MG VIAL IM PRN (17:12)
[2018-02-28] MEDS ORDERED: DEXTROSE 50% 25 GM/50 ML VIAL IV PRN (17:12)
[2018-02-28] MEDS ORDERED: DEXTROSE 50% 25 GM/50 ML SYRINGE IV PRN (17:30)
[2018-02-28] MEDS: PANTOPRAZOLE 40 MG TABLET PO SCH (18:09)
[2018-02-28] MEDS: levETIRAcetam 500 MG TABLET PO SCH (20:45)
[2018-02-28] MEDS: CARVEDILOL 3.125 MG TABLET PO SCH (20:45)
[2018-02-28] MEDS: MELATONIN 3 MG TABLET PO SCH (20:45)
[2018-02-28] MEDS: ASPIRIN EC 81 MG TABLET PO SCH (20:46)
[2018-03-01] MEDS: LEVOTHYROXINE 112 MCG TABLET PO SCH (05:30)
[2018-03-01] MEDS: INSULIN LISPRO 100 UNIT/ML SUBCUT SCH ×6 (09:19→21:07)
[2018-03-01] MEDS: INSULIN NPH 100 UNIT/ML SUBCUT SCH ×2 (09:19→16:03)
[2018-03-01] MEDS: LOVASTATIN 20 MG TABLET PO SCH ×2 (09:21→17:31)
[2018-03-01] MEDS: MULTIVITAMIN (CENTRUM) TABLET PO SCH (09:22)
[2018-03-01] MEDS: DEXTROMETHORPHAN ER 6 MG/ML 90 ML/BOTTLE PO SCH ×2 (09:22→21:08)
[2018-03-01] MEDS: APIXABAN 2.5 MG TABLET PO SCH ×2 (09:22→21:06)
[2018-03-01] MEDS: DOCUSATE SODIUM 100 MG CAPSULE PO SCH (09:22)
[2018-03-01] MEDS: TAMSULOSIN 0.4 MG CAPSULE PO SCH (09:23)
[2018-03-01] MEDS: levETIRAcetam 500 MG TABLET PO SCH ×2 (09:23→21:06)
[2018-03-01] MEDS: LYSINE 500 MG TABLET PO SCH (09:23)
[2018-03-01] MEDS: LACOSAMIDE 50 MG TABLET PO SCH ×2 (09:24→21:06)
[2018-03-01] MEDS: CHOLECALCIFEROL 5,000 UNIT TABLET PO SCH (09:24)
[2018-03-01] MEDS: POLYETHYLENE GLYCOL POWDER 17 GM PACK PO SCH (09:24)
[2018-03-01] MEDS: CYANOCOBALAMIN 500 MCG TABLET PO SCH (09:24)
[2018-03-01] MEDS: SODIUM CHLORIDE 0.9% 1,000 ML IV SCH ×2 (09:33→21:05)
[2018-03-01] MEDS: FLUTICASONE 50 MCG NASAL SPRAY 16 GM BOTTLE BOTH NARES SCH ×2 (09:36→21:08)
[2018-03-01] MEDS: PANTOPRAZOLE 40 MG TABLET PO SCH (17:31)
[2018-03-01] MEDS: MELATONIN 3 MG TABLET PO SCH (21:05)
[2018-03-01] MEDS: ASPIRIN EC 81 MG TABLET PO SCH (21:06)
[2018-03-01] MEDS: CARVEDILOL 3.125 MG TABLET PO SCH (21:06)
[2018-03-02] MEDS: SODIUM CHLORIDE 0.9% 1,000 ML IV SCH ×2 (04:02→13:01)
[2018-03-02] MEDS: LEVOTHYROXINE 112 MCG TABLET PO SCH (06:17)
[2018-03-02] MEDS: MULTIVITAMIN (CENTRUM) TABLET PO SCH (09:33)
[2018-03-02] MEDS: DOCUSATE SODIUM 100 MG CAPSULE PO SCH (09:33)
[2018-03-02] MEDS: APIXABAN 2.5 MG TABLET PO SCH (09:33)
[2018-03-02] MEDS: TAMSULOSIN 0.4 MG CAPSULE PO SCH (09:33)
[2018-03-02] MEDS: CHOLECALCIFEROL 5,000 UNIT TABLET PO SCH (09:33)
[2018-03-02] MEDS: levETIRAcetam 500 MG TABLET PO SCH (09:33)
[2018-03-02] MEDS: CYANOCOBALAMIN 500 MCG TABLET PO SCH (09:33)
[2018-03-02] MEDS: FLUTICASONE 50 MCG NASAL SPRAY 16 GM BOTTLE BOTH NARES SCH (09:34)
[2018-03-02] MEDS: LYSINE 500 MG TABLET PO SCH (09:34)
[2018-03-02] MEDS: LOVASTATIN 20 MG TABLET PO SCH (09:34)
[2018-03-02] MEDS: DEXTROMETHORPHAN ER 6 MG/ML 90 ML/BOTTLE PO SCH (09:35)
[2018-03-02] MEDS: INSULIN LISPRO 100 UNIT/ML SUBCUT SCH ×3 (09:37→12:29)
[2018-03-02] MEDS: INSULIN NPH 100 UNIT/ML SUBCUT SCH (09:39)
[2018-03-02] MEDS: POLYETHYLENE GLYCOL POWDER 17 GM PACK PO SCH (09:41)
[2018-03-02] MEDS: LACOSAMIDE 50 MG TABLET PO SCH (09:44)
[2018-03-02 12:06] VITALS: BP 150/85
[2018-03-02] MEDS ORDERED: TUBERCULIN SKIN TEST 0.1 ML SYRINGE INTRADERM ONE (14:00)
== END 2018-03-02 16:30 | DRG 101 ==
LOC: N.ED 11:54 → SUATTDRO 14:42 → N.3E 14:42
PROVIDERS: ADMIT Internal Medicine; ATTEND Internal Medicine

== ENCOUNTER 2018-04-16 13:49 | Inpatient (IN) ==
[2018-04-16 14:22] LABS: Basophils % 0.6 % (0.0-0.8); Eosinophils # 0.2 10*3/uL (0.0-0.87); Eosinophils % 3.3 % (0.00-10.9); Hematocrit 35.1 VOL% (42.0-52.0); Hemoglobin 10.9 GM/DL (14.0-18.0); Immature Granulocytes % 0.2 %; Immature Granulocytes Absolute 0.01 #; Lymphocytes # 1.3 10*3/uL (1.4-4.0); Lymphocytes % 20.2 % (21.2-54.2); Mean Corpuscular HGB Conc 31.1 GM/DL (32-36); Mean Corpuscular Hemoglobin 25 PG (27-34); Mean Corpuscular Volume 80.9 FL (87-102); Monocytes # 0.7 10*3/uL (0.11-0.8); Monocytes % 10.4 % (1.7-12.7); Neutrophils # 4.2 10*3/uL (1.4-7.4); Neutrophils % 65.3 % (38.7-73.9); Platelet Count 250 T/CUMM (130-400); Red Blood Count 4.34 MC/CUMM (3.8-5.5); Red Cell Distribution Width 14.2 % (9.3-17.3); White Blood Count 6.5 T/CUMM (4-12)
[2018-04-16 14:48] LABS: Alanine Aminotransferase 17 U/L (16-61); Albumin 3.1 G/DL (3.4-5.0); Alkaline Phosphatase 89 U/L (45-117); Aspartate Amino Transferase 16 U/L (0-37); Bilirubin,Total < 0.39 MG/DL (0.2-1.0); Blood Urea Nitrogen 77 MG/DL (7-18); Calcium 12.1 MG/DL (8.5-10.1); Glucose 190 MG/DL (74-106); Osmolality,Calculated 293.4 MOS/KG (273-304); Potassium 3.7 MMOL/L (3.5-5.1); Sodium 133 MMOL/L (136-145); Total Protein 8.2 G/DL (6.4-8.3)
[2018-04-16] MEDS ORDERED: levETIRAcetam 500 MG/5 ML VIAL IV ONE (15:00)
[2018-04-16 15:58] LABS: Apearance,Urine CLOUDY (Clear); Bacteria,Urine Occasional /HPF (Few); Bilirubin,Urine Negative (Negative); Blood, Urine Large mg/dL (Negative); Glucose,Urine (UA) 50 mg/dL (Negative); Hyaline Casts,Urine 3 /LPF (0-3); Ketones,Urine Negative (Negative); Nitrite,Urine Positive (Negative); Protein,Urine 30 MG/DL; RBC,Urine 103 /HPF (0-4); Urine Color Yellow (Yellow); Urine Specific Gravity 1.014 (1.001-1.035); Urine Urobilinogen < 2.0 EU/DL (0.2-1.0); WBC,Urine 368 /HPF (0-6)
[2018-04-16] MEDS ORDERED: cefTRIAXone 1,000 MG in SODIUM CHLORIDE 0.9% 100 ML IV STA (16:29)
[2018-04-16] MEDS ORDERED: cefTRIAXone 1,000 MG in SYRINGE 1 EACH IV STA (16:53)
[2018-04-16] MEDS ORDERED: cefTRIAXone 1,000 MG VIAL ONE (16:53)
[2018-04-16] MEDS ORDERED: ONDANSETRON 4 MG/2 ML VIAL IV PRN (17:28)
[2018-04-16] MEDS ORDERED: DEXTROSE 5% NACL 0.9% 1,000 ML IV SCH (17:30)
[2018-04-16] MEDS ORDERED: LORazepam 2 MG/1 ML VIAL IV PRN (17:34)
[2018-04-16] MEDS: SODIUM CHLORIDE 0.9% 1,000 ML IV SCH (18:53)
[2018-04-16] MEDS: HEPARIN 5,000 UNIT/1 ML VIAL SUBCUT SCH (21:44)
[2018-04-16] MEDS: LACOSAMIDE INJ 150 MG in SODIUM CHLORIDE 0.9% 50 ML IV SCH (22:22)
[2018-04-17 06:39] LABS: % Iron Saturation 8.6 % (18-50); Ferritin 30.5 ng/ml (26-388)
[2018-04-17] MEDS: LEVOTHYROXINE 100 MCG VIAL IV SCH (07:16)
[2018-04-17 07:58] LABS: Calcium 11.3 MG/DL (8.5-10.1); Potassium 3.5 MMOL/L (3.5-5.1)
[2018-04-17 08:02] LABS: Free T4 (Free Thyroxine) 1.24 NG/DL (0.76-1.46); Thyroid Stimulating Hormone 1.28 uIU/ml (0.358-3.74)
[2018-04-17] MEDS: LACOSAMIDE INJ 150 MG in SODIUM CHLORIDE 0.9% 50 ML IV SCH ×2 (09:00→22:10)
[2018-04-17] MEDS: HEPARIN 5,000 UNIT/1 ML VIAL SUBCUT SCH ×2 (09:05→22:09)
[2018-04-17 09:22] LABS: Basophils # 0.1 10*3/uL (0.0-0.2); Basophils % 0.7 % (0.0-0.8); Eosinophils # 0.3 10*3/uL (0.0-0.87); Hematocrit 35.8 VOL% (42.0-52.0); Hemoglobin 10.8 GM/DL (14.0-18.0); Immature Granulocytes % 0.6 %; Immature Granulocytes Absolute 0.05 #; Lymphocytes # 1.4 10*3/uL (1.4-4.0); Lymphocytes % 15.7 % (21.2-54.2); Mean Corpuscular HGB Conc 30.2 GM/DL (32-36); Mean Corpuscular Hemoglobin 25 PG (27-34); Mean Corpuscular Volume 83.1 FL (87-102); Monocytes # 0.9 10*3/uL (0.11-0.8); Monocytes % 10.2 % (1.7-12.7); Neutrophils # 6.1 10*3/uL (1.4-7.4); Neutrophils % 69.8 % (38.7-73.9); Platelet Count 222 T/CUMM (130-400); Red Blood Count 4.31 MC/CUMM (3.8-5.5); Red Cell Distribution Width 14.3 % (9.3-17.3); White Blood Count 8.7 T/CUMM (4-12)
[2018-04-17 10:29] LABS: Sedimentation Rate-Westergren 97 MM/HR (0-20)
[2018-04-17] MEDS ORDERED: DEXTROSE 50% 25 GM/50 ML VIAL IV PRN (11:54)
[2018-04-17] MEDS ORDERED: GLUCAGON 1 MG VIAL IM PRN (11:54)
[2018-04-17] MEDS: SODIUM CHLORIDE 0.9% 1,000 ML IV SCH (12:42)
[2018-04-17] MEDS: FLUCONAZOLE 100 MG TABLET PO SCH (12:43)
[2018-04-17 14:14] LABS: Folate > 24.0 NG/ML (5.4-24.0); Vitamin B12 1828 PG/ML (211-911)
[2018-04-17] MEDS: INSULIN REGULAR 100 UNIT/ML SUBCUT SCH ×2 (17:14→22:10)
[2018-04-17] MEDS: cefTRIAXone 2,000 MG in SYRINGE 1 EACH IV SCH (22:08)
[2018-04-17] MEDS: TAMSULOSIN 0.4 MG CAPSULE PO SCH (22:09)
[2018-04-18] MEDS: SODIUM CHLORIDE 0.9% 1,000 ML IV SCH ×2 (03:51→22:14)
[2018-04-18 05:23] LABS: Basophils % 0.5 % (0.0-0.8); Eosinophils # 0.3 10*3/uL (0.0-0.87); Eosinophils % 3.4 % (0.00-10.9); Hematocrit 30.3 VOL% (42.0-52.0); Hemoglobin 9.3 GM/DL (14.0-18.0); Immature Granulocytes % 0.5 %; Immature Granulocytes Absolute 0.04 #; Lymphocytes # 1.5 10*3/uL (1.4-4.0); Lymphocytes % 18.5 % (21.2-54.2); Mean Corpuscular HGB Conc 30.7 GM/DL (32-36); Mean Corpuscular Hemoglobin 25 PG (27-34); Mean Corpuscular Volume 81.7 FL (87-102); Mean Platelet Volume 12.4 FL (9.6-12.0); Monocytes # 0.9 10*3/uL (0.11-0.8); Monocytes % 11.3 % (1.7-12.7); Neutrophils # 5.2 10*3/uL (1.4-7.4); Neutrophils % 65.8 % (38.7-73.9); Platelet Count 201 T/CUMM (130-400); Red Blood Count 3.71 MC/CUMM (3.8-5.5); Red Cell Distribution Width 14.3 % (9.3-17.3); White Blood Count 7.9 T/CUMM (4-12)
[2018-04-18 05:45] LABS: Calcium 9.6 MG/DL (8.5-10.1); Osmolality,Calculated 298.7 MOS/KG (273-304); Potassium 3.2 MMOL/L (3.5-5.1)
[2018-04-18] MEDS: LEVOTHYROXINE 100 MCG VIAL IV SCH (06:32)
[2018-04-18] MEDS ORDERED: POTASSIUM CHLORIDE 20 MEQ TABLET PO PRN (08:29)
[2018-04-18] MEDS: FLUCONAZOLE 100 MG TABLET PO SCH (08:42)
[2018-04-18] MEDS: INSULIN REGULAR 100 UNIT/ML SUBCUT SCH ×4 (08:42→22:36)
[2018-04-18] MEDS: APIXABAN 2.5 MG TABLET PO SCH ×2 (08:43→21:06)
[2018-04-18] MEDS: POTASSIUM CHLORIDE 20 MEQ/15 ML UDCUP PER TUBE PRN ×4 (08:43→16:41)
[2018-04-18 10:40] LABS: Hemoglobin A1 (Alkaline) 97.3 % (96.5-98.5); Hemoglobin A2 (Alkaline) 2.7 % (1.5-3.5)
[2018-04-18] MEDS: LACOSAMIDE INJ 150 MG in SODIUM CHLORIDE 0.9% 50 ML IV SCH (10:55)
[2018-04-18] MEDS: LACOSAMIDE 50 MG TABLET PO SCH (21:05)
[2018-04-18] MEDS: levETIRAcetam 500 MG TABLET PO SCH (21:05)
[2018-04-18] MEDS: TAMSULOSIN 0.4 MG CAPSULE PO SCH (21:06)
[2018-04-18] MEDS: cefTRIAXone 2,000 MG in SYRINGE 1 EACH IV SCH (22:36)
[2018-04-19 05:09] LABS: Basophils # 0.1 10*3/uL (0.0-0.2); Basophils % 0.9 % (0.0-0.8); Eosinophils # 0.4 10*3/uL (0.0-0.87); Eosinophils % 5.6 % (0.00-10.9); Hematocrit 29.6 VOL% (42.0-52.0); Immature Granulocytes % 0.5 %; Immature Granulocytes Absolute 0.04 #; Lymphocytes # 1.5 10*3/uL (1.4-4.0); Lymphocytes % 19.7 % (21.2-54.2); Mean Corpuscular HGB Conc 30.4 GM/DL (32-36); Mean Corpuscular Hemoglobin 25 PG (27-34); Mean Corpuscular Volume 81.8 FL (87-102); Mean Platelet Volume 12.1 FL (9.6-12.0); Monocytes # 0.8 10*3/uL (0.11-0.8); Monocytes % 10.8 % (1.7-12.7); Neutrophils # 4.8 10*3/uL (1.4-7.4); Neutrophils % 62.5 % (38.7-73.9); Platelet Count 195 T/CUMM (130-400); Red Blood Count 3.62 MC/CUMM (3.8-5.5); Red Cell Distribution Width 14.4 % (9.3-17.3); White Blood Count 7.7 T/CUMM (4-12)
[2018-04-19 05:19] LABS: Osmolality,Calculated 293.4 MOS/KG (273-304); Potassium 3.8 MMOL/L (3.5-5.1)
[2018-04-19] MEDS: LEVOTHYROXINE 112 MCG TABLET PO SCH (06:28)
[2018-04-19] MEDS: INSULIN REGULAR 100 UNIT/ML SUBCUT SCH ×4 (08:55→21:55)
[2018-04-19] MEDS: APIXABAN 2.5 MG TABLET PO SCH ×2 (08:55→21:55)
[2018-04-19] MEDS: LACOSAMIDE 50 MG TABLET PO SCH ×2 (08:55→21:55)
[2018-04-19] MEDS: levETIRAcetam 500 MG TABLET PO SCH ×2 (08:55→21:55)
[2018-04-19] MEDS: FLUCONAZOLE 100 MG TABLET PO SCH (08:55)
[2018-04-19] MEDS: SODIUM CHLORIDE 0.9% 1,000 ML IV SCH (15:45)
[2018-04-19] MEDS: TAMSULOSIN 0.4 MG CAPSULE PO SCH (21:55)
[2018-04-19] MEDS: cefTRIAXone 2,000 MG in SYRINGE 1 EACH IV SCH (21:59)
[2018-04-20 05:41] LABS: Basophils # 0.1 10*3/uL (0.0-0.2); Basophils % 0.9 % (0.0-0.8); Eosinophils # 0.6 10*3/uL (0.0-0.87); Eosinophils % 7.6 % (0.00-10.9); Hematocrit 29.2 VOL% (42.0-52.0); Hemoglobin 9.1 GM/DL (14.0-18.0); Immature Granulocytes % 0.5 %; Immature Granulocytes Absolute 0.04 #; Lymphocytes # 1.7 10*3/uL (1.4-4.0); Lymphocytes % 20.4 % (21.2-54.2); Mean Corpuscular HGB Conc 31.2 GM/DL (32-36); Mean Corpuscular Hemoglobin 26 PG (27-34); Mean Corpuscular Volume 81.8 FL (87-102); Mean Platelet Volume 11.7 FL (9.6-12.0); Monocytes # 0.8 10*3/uL (0.11-0.8); Neutrophils # 5.2 10*3/uL (1.4-7.4); Neutrophils % 61.6 % (38.7-73.9); Platelet Count 184 T/CUMM (130-400); Red Blood Count 3.57 MC/CUMM (3.8-5.5); Red Cell Distribution Width 14.3 % (9.3-17.3); White Blood Count 8.4 T/CUMM (4-12)
[2018-04-20 05:58] LABS: Calcium 8.6 MG/DL (8.5-10.1); Osmolality,Calculated 289.4 MOS/KG (273-304); Potassium 3.7 MMOL/L (3.5-5.1)
[2018-04-20] MEDS: LEVOTHYROXINE 112 MCG TABLET PO SCH (06:18)
[2018-04-20] MEDS: FLUCONAZOLE 100 MG TABLET PO SCH (08:18)
[2018-04-20] MEDS: levETIRAcetam 500 MG TABLET PO SCH ×2 (08:19→21:40)
[2018-04-20] MEDS: APIXABAN 2.5 MG TABLET PO SCH ×2 (08:19→21:40)
[2018-04-20] MEDS: LACOSAMIDE 50 MG TABLET PO SCH ×2 (08:19→21:40)
[2018-04-20] MEDS: INSULIN REGULAR 100 UNIT/ML SUBCUT SCH ×4 (08:20→21:40)
[2018-04-20] MEDS: SODIUM CHLORIDE 0.9% 1,000 ML IV SCH ×2 (08:26→22:19)
[2018-04-20] MEDS: cefTRIAXone 2,000 MG in SYRINGE 1 EACH IV SCH (20:43)
[2018-04-20] MEDS: TAMSULOSIN 0.4 MG CAPSULE PO SCH (21:40)
[2018-04-21 05:09] LABS: Basophils # 0.1 10*3/uL (0.0-0.2); Basophils % 1.1 % (0.0-0.8); Eosinophils # 0.5 10*3/uL (0.0-0.87); Eosinophils % 7.8 % (0.00-10.9); Hematocrit 29.4 VOL% (42.0-52.0); Hemoglobin 8.9 GM/DL (14.0-18.0); Immature Granulocytes % 0.6 %; Immature Granulocytes Absolute 0.04 #; Lymphocytes # 1.6 10*3/uL (1.4-4.0); Lymphocytes % 24.1 % (21.2-54.2); Mean Corpuscular HGB Conc 30.3 GM/DL (32-36); Mean Corpuscular Hemoglobin 25 PG (27-34); Mean Corpuscular Volume 82.4 FL (87-102); Mean Platelet Volume 12.1 FL (9.6-12.0); Monocytes # 0.7 10*3/uL (0.11-0.8); Neutrophils # 3.7 10*3/uL (1.4-7.4); Neutrophils % 56.4 % (38.7-73.9); Platelet Count 179 T/CUMM (130-400); Red Blood Count 3.57 MC/CUMM (3.8-5.5); Red Cell Distribution Width 14.4 % (9.3-17.3); White Blood Count 6.6 T/CUMM (4-12)
[2018-04-21 05:21] LABS: Calcium 8.3 MG/DL (8.5-10.1); Osmolality,Calculated 288.3 MOS/KG (273-304); Potassium 3.7 MMOL/L (3.5-5.1)
[2018-04-21] MEDS: LEVOTHYROXINE 112 MCG TABLET PO SCH (06:27)
[2018-04-21] MEDS: levETIRAcetam 500 MG TABLET PO SCH (08:35)
[2018-04-21] MEDS: LACOSAMIDE 50 MG TABLET PO SCH (08:35)
[2018-04-21] MEDS: APIXABAN 2.5 MG TABLET PO SCH (08:35)
[2018-04-21] MEDS: INSULIN REGULAR 100 UNIT/ML SUBCUT SCH ×3 (08:36→16:26)
[2018-04-21] MEDS: FLUCONAZOLE 100 MG TABLET PO SCH (08:36)
[2018-04-21 16:00] VITALS: BP 148/70
[2018-04-21] MEDS: SODIUM CHLORIDE 0.9% 1,000 ML IV SCH (17:27)
== END 2018-04-21 17:30 | disposition hospice, home (50) | DRG 101 ==
LOC: EDUNIT# → EDBD → N.ED 13:49 → N.EDINP 17:28 → N.2E 18:22
PROVIDERS: ADMIT Internal Medicine; ATTEND Internal Medicine